=== PATIENT | male | born 1950 | race African-American/Black ===

== ENCOUNTER 2018-08-12 12:54 | Observation (INO) | payer OTHER ==
--- NOTE | 2018-08-12 14:11 | RAD REPORT ---
EXAM DESCRIPTION: Kenyatta Single View08/12/2018 1:59 pm CLINICAL HISTORY: Chest pain COMPARISON: 2017 FINDINGS: The lungs appear clear of acute infiltrate. The heart is mildly to moderately enlarged IMPRESSION: No acute abnormalities displayed
[2018-08-12 14:22] LABS: Absolute Lymphocytes (CBC) 2.3 K/uL (0.7-4.9); Absolute Monocytes 0.8 K/uL (0.1-1.3); Absolute Neutrophil 6.1 K/uL (1.8-8.0); Basophils % 0.8 % (0-1.3); Eosinophils % 2.5 % (0-4.4); Hematocrit 38.9 % (39.6-49.0); Lymphocytes % 24.5 % (15.3-44.8); MCH 28.5 pg (27.0-35.0); MCV 84.3 fL (80-100); MPV 9.9 fL (7.6-11.3); Monocytes % 8.4 % (3.3-12.3); RBC Red Blood Cell Count 4.62 M/uL (4.33-5.43)
[2018-08-12] MEDS ORDERED: ASPIRIN 81 MG CHEWABLE TABLET ONE (14:23)
[2018-08-12 14:32] LABS: Protime INR 1.05
[2018-08-12 14:43] LABS: Albumin 3.2 g/dL (3.4-5.0); Bilirubin Direct 0.1 mg/dL (0-0.2); Bilirubin Total 0.4 mg/dL (0.2-1.0); Magnesium 2.1 mg/dL (1.8-2.4); Protein, Total 7.3 g/dL (6.4-8.2); Troponin (Emerg Dept Use Only) 0.02 ng/mL (0.0-0.045)
--- NOTE | 2018-08-12 15:34 | EDPHYS ---
Physician Documentation [facility] Name: José Miguel Peraza Jr Age: 68 yrs Sex: Male : 1950 Arrival Date: 08/12/2018 Time: 12:57 Bed 23 Private MD: Geraldine Morales ED Physician Jarvis Forte HPI: 08/12 13:30 This 68 yrs old Black Male presents to ER via Wheelchair with complaints of Chest Pain. pm1 13:30 The patient or guardian reports chest pain that is located primarily in the anterior pm1 aspect of left upper chest. Onset: last night. The pain does not radiate. Associated signs and symptoms: Pertinent negatives: abdominal pain, nausea, shortness of breath, vomiting. The chest pain is described as a pressure. Duration: The patient or guardian reports multiple episodes, Last episode 30 minutes prior to arrival. Modifying factors: The symptoms are alleviated by Tums helped with initial episode last night. Chest pressure coming and going. No alleviating or aggravating factors since then. Severity of pain: in the emergency department the pain has resolved and did so just prior to arrival. The patient has experienced a previous episode, many years ago, [place] in 2013. The patient has not recently seen a physician, the patient's primary care provider is Dr. Morales and sees Sangita for chronic renal disease . Historical: - Allergies: 13:10 No Known Allergies; aa5 - Home Meds: 15:06 doxazosin 4 mg Oral tab 1 tab three times a day [Active]; simvastatin 40 mg Oral tab 1 tl3 tab once daily [Active]; ramipril 10 mg oral cap 1 cap once daily [Active]; Plavix 75 mg oral tab 1 tab once daily [Active]; metoprolol tartrate 100 mg oral tab 1 tab 2 times per day [Active]; Lasix 40 mg oral tab 1 tab once daily [Active]; hydralazine 100 mg Oral tab 1 tab 2 times per day [Active]; probenecid 500 mg Oral tab 0.5 tab once daily [Active]; - PMHx: 13:10 Diabetes - NIDDM; Gout; Hypertension; Myocardial infarction; aa5 - PSHx: 13:10 None; cataracts; aa5 - Immunization history:: Adult Immunizations unknown. - Social history:: Smoking status: Patient/guardian denies using tobacco. - Ebola Screening: : No symptoms or risks identified at this time. ROS: 13:30 Constitutional: Negative for fever, chills, and weight loss, Eyes: Negative for injury, pm1 pain, redness, and discharge, ENT: Negative for injury, pain, and discharge, Neck: Negative for injury, pain, and swelling. 13:30 Respiratory: Negative for shortness of breath, cough, wheezing, and pleuritic chest pain, Abdomen/GI: Negative for abdominal pain, nausea, vomiting, diarrhea, and constipation, Back: Negative for injury and pain, : Negative for injury, bleeding, discharge, and swelling, MS/Extremity: Negative for injury and deformity, Skin: Negative for injury, rash, and discoloration, Neuro: Negative for headache, weakness, numbness, tingling, and seizure. 13:30 Cardiovascular: Positive for chest pain, Negative for edema, orthopnea, palpitations. Exam: 13:30 Constitutional: This is a well developed, well nourished patient who is awake, alert, pm1 and in no acute distress. Head/Face: Normocephalic, atraumatic. Eyes: Pupils equal round and reactive to light, extra-ocular motions intact. Lids and lashes normal. Conjunctiva and sclera are non-icteric and not injected. Cornea within normal limits. Periorbital areas with no swelling, redness, or edema. ENT: Nares patent. No nasal discharge, no septal abnormalities noted. Tympanic membranes are normal and external auditory canals are clear. Oropharynx with no redness, swelling, or masses, exudates, or evidence of obstruction, uvula midline. Mucous membranes moist. Neck: Trachea midline, no thyromegaly or masses palpated, and no cervical lymphadenopathy. Supple, full range of motion without nuchal rigidity, or vertebral point tenderness. No Meningismus. Chest/axilla: Normal chest wall appearance and motion. Nontender with no deformity. No lesions are appreciated. Cardiovascular: Regular rate and rhythm with a normal S1 and S2. No gallops, murmurs, or rubs. Normal PMI, no JVD. No pulse deficits. Respiratory: Lungs have equal breath sounds bilaterally, clear to auscultation and percussion. No rales, rhonchi or wheezes noted. No increased work of breathing, no retractions or nasal flaring. Abdomen/GI: Soft, non-tender, with normal bowel sounds. No distension or tympany. No guarding or rebound. No evidence of tenderness throughout. Back: No spinal tenderness. No costovertebral tenderness. Full range of motion. Skin: Warm, dry with normal turgor. Normal color with no rashes, no lesions, and no evidence of cellulitis. MS/ Extremity: Pulses equal, no cyanosis. Neurovascular intact. Full, normal range of motion. 13:30 NSR, 69 BPM, nonspecific T wave changes. No ECG changes compared to ECG from 12/17/2016 13:30 Neuro: Orientation: is normal, Motor: is normal, moves all fours. Vital Signs: 13:10 BP 156 / 82; Pulse 74; Resp 18 S; Temp 98.6(TE); Pulse Ox 99% on R/A; Weight 87.09 kg aa5 (R); Height 5 ft. 2 in. (157.48 cm) (R); Pain 0/10; 13:54 BP 152 / 79; Pulse 56; Resp 18; Pulse Ox 98% ; tl3 15:06 BP 175 / 91; Pulse 49; Resp 18; Pulse Ox 100% on R/A; tl3 16:16 BP 178 / 86; Pulse 46; Resp 18; Pulse Ox 98% on R/A; tl3 13:10 Body Mass Index 35.12 (87.09 kg, 157.48 cm) aa5 MDM: 13:15 Patient medically screened. pm1 15:27 Data reviewed: vital signs. Data interpreted: Pulse oximetry: on room air is 100 %. pm1 Interpretation: normal. Counseling: I had a detailed discussion with the patient and/or guardian regarding: the historical points, exam findings, and any diagnostic results supporting the discharge/admit diagnosis, lab results, radiology results, the need for outpatient follow up, to return to the emergency department if symptoms worsen or persist or if there are any questions or concerns that arise at home. 08/12 13:19 Order name: Basic Metabolic Panel; Complete Time: 14:54 pm1 08/12 13:19 Order name: CBC with Diff; Complete Time: 14:32 pm1 08/12 13:19 Order name: LFT's; Complete Time: 14:54 pm1 08/12 13:19 Order name: Magnesium; Complete Time: 14:54 pm1 08/12 13:19 Order name: NT PRO-BNP; Complete Time: 14:54 pm1 08/12 13:19 Order name: PT-INR; Complete Time: 14:54 pm1 08/12 13:19 Order name: Troponin (emerg Dept Use Only); Complete Time: 14:54 pm1 08/12 16:06 Order name: Basic Metabolic Panel EDAR 08/12 16:06 Order name: Basic Metabolic Panel EDAR 08/12 16:06 Order name: CKMB Creatine Kinase MB EDAR 08/12 16:07 Order name: T4 Free EDAR 08/12 16:07 Order name: Thyroid Stimulating Hormone EDAR 08/12 16:07 Order name: Urinalysis EDAR 08/12 16:07 Order name: CBC with Automated Diff EDMS 08/12 13:19 Order name: XRAY Chest (1 view); Complete Time: 14:32 pm1 08/12 13:19 Order name: EKG; Complete Time: 13:20 pm1 08/12 16:07 Order name: CBC with Automated Diff EDAR 08/12 16:07 Order name: CKMB Creatine Kinase MB EDAR 08/12 16:07 Order name: CKMB Creatine Kinase MB EDAR 08/12 16:07 Order name: Creatine Phosphokinase EDAR 08/12 16:07 Order name: Creatine Phosphokinase EDAR 08/12 16:07 Order name: Creatine Phosphokinase EDAR 08/12 16:07 Order name: Lipid Profile EDAR 08/12 16:07 Order name: Lipid Profile EDAR 08/12 16:07 Order name: Magnesium EDAR 08/12 16:07 Order name: Magnesium EDAR 08/12 16:07 Order name: Troponin I EDAR 08/12 16:07 Order name: Troponin I EDAR 08/12 16:07 Order name: Troponin I EDAR 08/12 13:19 Order name: Cardiac monitoring; Complete Time: 13:23 pm1 08/12 13:19 Order name: EKG - Nurse/Tech; Complete Time: 13:23 pm1 08/12 13:19 Order name: IV Saline Lock; Complete Time: 14:13 pm1 08/12 13:19 Order name: Labs collected and sent; Complete Time: 14:13 pm1 08/12 13:19 Order name: O2 Per Protocol; Complete Time: 14:14 pm1 08/12 13:19 Order name: O2 Sat Monitoring; Complete Time: 14:14 pm1 08/12 16:07 Order name: CONS Physician Consult EDAR 08/12 16:07 Order name: CONS Physician Consult EDAR 08/12 16:07 Order name: Consistent Carb (ADA) 2000 Bruce EDAR Administered Medications: 14:13 Drug: Aspirin Chewable Tablet 324 mg Route: PO; tl3 15:13 Follow up: Response: No adverse reaction tl3 Disposition: 08/13 11:43 Co-signature as Attending Physician, Jarvis Forte MD. rosalinda Disposition: 08/12/18 15:33 Hospitalization ordered by Jaswant Milian for Observation. Preliminary diagnosis is Chest pain, unspecified. - Bed requested for Telemetry/MedSurg (observation). - Status is Observation. tl3 - Condition is Stable. - Problem is new. - Symptoms have improved. UTI on Admission? No Signatures: Dispatcher [employer] [facility] Mame Rosario RN RN Citlali Orosco RN RN aa5 Khai Moralez, TOOL DESIGNER APPRENTICE TOOL DESIGNER APPRENTICE pm1 Jarvis Forte MD MD Jerica Martinez RN RN tl3 Corrections: (The following items were deleted from the chart) 08/12 16:28 15:33 Hospitalization Ordered by Jaswant Milian DO for Observation. Preliminary dw diagnosis is Chest pain, unspecified. Bed requested for Telemetry/MedSurg (observation). Status is Observation. Condition is Stable. Problem is new. Symptoms have improved. UTI on Admission? No. pm1 17:53 16:28 08/12/2018 15:33 Hospitalization Ordered by Jaswant Milian DO for Observation. tl3 Preliminary diagnosis is Chest pain, unspecified. Bed requested for Telemetry/MedSurg (observation). Status is Observation. Condition is Stable. Problem is new. Symptoms have improved. UTI on Admission? No. dw
--- NOTE | 2018-08-12 15:34 | ER ---
Nurse's Notes [facility] Name: José Miguel Peraza Jr Age: 68 yrs Sex: Male : 1950 Arrival Date: 08/12/2018 Time: 12:57 Bed 23 Private MD: Geraldine Morales Diagnosis: Chest pain, unspecified Presentation: 08/12 13:08 Presenting complaint: Patient states: intermittent chest pain that began last night. Pt aa5 describes chest pain as aching. Pt denies SOB, denies nausea. Transition of care: patient was not received from another setting of care. Onset of symptoms was August 2018. Risk Assessment: Do you want to hurt yourself or someone else? Patient reports no desire to harm self or others. Initial Sepsis Screen: Does the patient meet any 2 criteria? No. Patient's initial sepsis screen is negative. Does the patient have a suspected source of infection? No. Patient's initial sepsis screen is negative. Care prior to arrival: None. 13:08 Method Of Arrival: Wheelchair aa5 13:08 Acuity: BRAD 3 aa5 Historical: - Allergies: 13:10 No Known Allergies; aa5 - Home Meds: 15:06 doxazosin 4 mg Oral tab 1 tab three times a day [Active]; simvastatin 40 mg Oral tab 1 tl3 tab once daily [Active]; ramipril 10 mg oral cap 1 cap once daily [Active]; Plavix 75 mg oral tab 1 tab once daily [Active]; metoprolol tartrate 100 mg oral tab 1 tab 2 times per day [Active]; Lasix 40 mg oral tab 1 tab once daily [Active]; hydralazine 100 mg Oral tab 1 tab 2 times per day [Active]; probenecid 500 mg Oral tab 0.5 tab once daily [Active]; - PMHx: 13:10 Diabetes - NIDDM; Gout; Hypertension; Myocardial infarction; aa5 - PSHx: 13:10 None; cataracts; aa5 - Immunization history:: Adult Immunizations unknown. - Social history:: Smoking status: Patient/guardian denies using tobacco. - Ebola Screening: : No symptoms or risks identified at this time. Screenin:54 Abuse screen: Denies threats or abuse. Nutritional screening: No deficits noted. tl3 Tuberculosis screening: No symptoms or risk factors identified. Fall Risk None identified. Assessment: 13:54 General: Appears in no apparent distress. comfortable, obese, well groomed, well tl3 developed, well nourished, Behavior is calm, cooperative, appropriate for age. Pain: Denies pain. Complains of pain in chest Pain does not radiate. Pain began suddenly, last night, relieved with rollaids. Neuro: Level of Consciousness is awake, alert, obeys commands, Oriented to person, place, time, situation, Appropriate for age. Cardiovascular: Heart tones S1 S2 present Patient's skin is warm and dry. Rhythm is regular. Respiratory: Airway is patent Respiratory effort is even, unlabored, Respiratory pattern is regular, symmetrical. GI: Abdomen is round. : No signs and/or symptoms were reported regarding the genitourinary system. EENT: Parent/caregiver reports the patient having difficulty hearing in right ear. 14:13 Reassessment:. tl3 15:06 Reassessment: Patient appears in no apparent distress at this time. No changes from tl3 previously documented assessment. Patient and/or family updated on plan of care and expected duration. Pain level reassessed. Patient is alert, oriented x 3, equal unlabored respirations, skin warm/dry/pink. whitney at bedside discussing POC. 16:16 Reassessment: Patient appears in no apparent distress at this time. No changes from tl3 previously documented assessment. Patient and/or family updated on plan of care and expected duration. Pain level reassessed. Patient is alert, oriented x 3, equal unlabored respirations, skin warm/dry/pink. hospitalist at bedside. Vital Signs: 13:10 BP 156 / 82; Pulse 74; Resp 18 S; Temp 98.6(TE); Pulse Ox 99% on R/A; Weight 87.09 kg aa5 (R); Height 5 ft. 2 in. (157.48 cm) (R); Pain 0/10; 13:54 BP 152 / 79; Pulse 56; Resp 18; Pulse Ox 98% ; tl3 15:06 BP 175 / 91; Pulse 49; Resp 18; Pulse Ox 100% on R/A; tl3 16:16 BP 178 / 86; Pulse 46; Resp 18; Pulse Ox 98% on R/A; tl3 13:10 Body Mass Index 35.12 (87.09 kg, 157.48 cm) aa ED Course: 12:57 Patient arrived in ED. mr 12:57 Geraldine Morales MD is Private Physician. mr 13:09 Triage completed. aa5 13:09 Arm band placed on. aa5 13:14 Whitney Moralez NP is PHCP. pm1 13:14 Jarvis Forte MD is Attending Physician. pm1 13:22 EKG done, by ED staff, reviewed by Jarvis Forte MD. cb2 13:54 Jerica Martinez RN is Primary Nurse. tl3 13:54 Patient has correct armband on for positive identification. school lunch monitor on. Pulse tl3 ox on. NIBP on. Warm blanket given. 13:54 No provider procedures requiring assistance completed. Inserted saline lock: 20 gauge tl3 in right antecubital area, using aseptic technique. Blood collected. Patient maintains SpO2 saturation greater than 95% on room air. 13:55 X-ray completed. Portable x-ray completed in exam room. Patient tolerated procedure ka well. 14:07 XRAY Chest (1 view) In Process Unspecified. EDMS 15:33 Jaswant Milian DO is Hospitalizing Provider. pm1 17:16 Patient admitted, IV remains in place. tl3 Administered Medications: 14:13 Drug: Aspirin Chewable Tablet 324 mg Route: PO; tl3 15:13 Follow up: Response: No adverse reaction tl3 Outcome: 15:33 Decision to Hospitalize by Provider. pm1 17:16 Admitted to Tele accompanied by tech, via wheelchair, with chart, Report called to tl3 BEENA Alex 17:16 Condition: stable 17:16 Instructed on the need for admit. 17:53 Patient left the ED. tl3 Signatures: Dispatcher [employer] ROSEMARYAL Awa Gordon mr OroscoCitlali, RN RN aa5 Taryn Fritz Patrick, NP MASTER BRE[employer]ER pm1 [employer] cb2 Jerica Martinez, BEENA RN tl3
[2018-08-12] MEDS ORDERED: TRAMADOL HCL 50 MG TAB PO PRN (15:58)
[2018-08-12] MEDS ORDERED: D50W 25 GM/50 ML SYRINGE IV PRN (15:58)
[2018-08-12] MEDS ORDERED: GLUCAGON 1 MG/VIAL IM PRN (15:58)
[2018-08-12] MEDS ORDERED: NITROGLYCERIN 0.4 MG/TAB SL PRN (15:58)
[2018-08-12] MEDS ORDERED: ONDANSETRON 4 MG/2 ML VIAL IV PRN (15:58)
[2018-08-12] MEDS ORDERED: ACETAMINOPHEN 500 MG TAB PO PRN (15:58)
--- NOTE | 2018-08-12 16:13 | P.HP ---
Certification for Inpatient Patient admitted to: Observation With expected LOS: <2 Midnights Patient will require the following post-hospital care: None Practitioner: I am a practitioner with admitting privileges, knowledge of patient current condition, hospital course, and medical plan of care. Services: Services provided to patient in accordance with Admission requirements found in Title 42 Section 412.3 of the Code of Federal Regulations Patient History Date of Service: 08/12/18 Primary Care Provider: Dr. Prado; Nephrology-Dr. Quesada Reason for admission: Chest pain History of Present Illness: 68-year-old male presented to the emergency room with chest pain. Chest pain started about 10 and p.m. last night. Mainly to the substernal region. No radiation pain was noted. No nausea, vomiting, shortness of breath was noted. He got up took some Rolaids. Pain improved. Then this morning he reported more chest pain. At which point he came to the emergency room. He denied any palpitations, cough, congestion, or shortness of breath. Patient with history of diabetes mellitus type 2, insulin-dependent, chronic renal disease stage IV, Coronary artery disease with prior [place], diastolic CHF, hyperlipidemia, and difficulty hearing. In the ER patient evaluated. Initial EKG shows no significant EKG changes. Blood pressure elevated. Initial troponin unremarkable. BNP 842. Sodium 142, potassium 4.0, BUN of 26, creatinine 2.9 with a GFR 27. Magnesium 2.1. Glucose 107. White count 9.6, hemoglobin 13.1. Chest x-ray showed no significant lung changes. Cardiomegaly noted. Patient admitted due to multiple risk factors. Patient admitted for observation. When I saw the patient the ER, family bedside. He reported no chest pain. Patient appeared stable Allergies No Known Drug Allergies Allergy (Verified 12/16/16 16:06) Unknown No Known Allergies Allergy (Uncoded 03/19/17 06:13) Unknown Home medications list reviewed: Yes Home Medications: Hydralazine [Apresoline*] 50 mg PO TID #90 tab 01/30/14 Simvastatin [Zocor*] 40 mg PO BEDTIME #30 tablet 01/30/14 Clopidogrel Bisulfate [Plavix*] 75 mg PO DAILY #30 tablet 12/17/16 Doxazosin [Cardura*] 2 mg PO BID 12/17/16 Furosemide 20 mg PO DAILY 12/17/16 Insulin Detemir [Levemir Flextouch] 10 unit SQ DAILY 12/17/16 Metoprolol Tartrate [Lopressor*] 100 mg PO BID #60 tab 12/17/16 Ramipril 5 mg PO BEDTIME 12/17/16 Ranitidine HCl [Zantac] 300 mg PO DAILY 12/17/16 - Past Medical/Surgical History Diabetic: Yes -: Diabetes mellitus type 2, insulin-dependent -: HTN -: Chronic diastolic CHF -: Chronic renal disease, stage IV -: Hyperlipidemia -: CAD with prior [place] -: Gout -: Difficulty hearing -: Cataract Sx-bilateral eyes Psychosocial/ Personal History: Patient is - Family History Family History: Reviewed- Non-Contributory - Social History Smoking Status: Never smoker Alcohol use: No CD- Drugs: No Caffeine use: Yes Place of Residence: Home Review of Systems General: As per HPI Eyes: Unremarkable ENT: As per HPI Respiratory: Unremarkable Cardiovascular: Chest Pain, As per HPI Gastrointestinal: Unremarkable Genitourinary: Unremarkable Musculoskeletal: Unremarkable Integumentary: Unremarkable Neurological: Unremarkable Lymphatics: Unremarkable Physical Examination - Physical Exam General: Alert, In no apparent distress, Oriented x3, Cooperative HEENT: Atraumatic, Normocephalic, Mucous membr. moist/pink, Other (Patient with difficulty hearing) Neck: Supple, No Thyromegaly Respiratory: Clear to auscultation bilaterally, Normal air movement Cardiovascular: Normal pulses, Regular rate/rhythm Gastrointestinal: Normal bowel sounds, Soft and benign, Non-distended, No ascites, No tenderness, No masses, No rebound, No guarding Musculoskeletal: No contractures, No erythema, No tenderness, No warmth Integumentary: No tenderness/swelling, No erythema, No warmth, No cyanosis Neurological: Normal speech, Normal strength at 5/5 x4 extr, Normal tone, Normal affect - Studies Laboratory Data (last 24 hrs) 08/12/18 14:00: PT 12.4, INR 1.05 08/12/18 14:00: WBC 9.6, Hgb 13.1 L, Hct 38.9 L, Plt Count 209 08/12/18 14:00: Sodium 142, Potassium 4.0, BUN 26 H, Creatinine 2.90 H, Glucose 107 H, Magnesium 2.1, Total Bilirubin 0.4, AST 14 L, ALT 19, Alkaline Phosphatase 51 Assessment and Plan - Plan Impression: Chest pain likely unstable angina with history of CAD and prior [place] Hypertension, uncontrolled Diabetes mellitus type 2 insulin-dependent Chronic diastolic CHF Chronic renal disease stage IV Hyperlipidemia Difficulty hearing Gout Plan: Chest pain likely unstable angina with history of CAD and prior FL: Patient will be admitted for further evaluation. Chest pain protocol in place. Will continue monitor on telemetry. Will monitor serial cardiac enzymes. Will start aspirin. Will continue with his Plavix. Will continue with his blood pressure medication and basal insulin. Cardiology consulted for further recommendation. Patient may require further cardiac intervention. Inpatient versus outpatient cardiac workup will need to be considered. Hypertension, uncontrolled: Will continue with his medications of doxazosin 4 mg 1 pill 3 times a day, hydralazine 100 mg 1 pill twice daily, metoprolol 100 mg 1 pill twice daily, and ramipril 10 mg daily. Diabetes mellitus type 2 insulin-dependent: Will continue with basal insulin Lantus 10 units at bedtime. Will continue to monitor Accu-Cheks. Sliding scale in place. Chronic diastolic CHF: This appears stable. Will continue with Lasix [address] on 1500 cc per day fluid restriction. Chronic renal disease stage IV: This appears stable. Will continue with medication above. Nephrology consulted to further address Hyperlipidemia: Will continue with statin medication. Difficulty hearing: Patient should see ENT as an outpatient to further evaluate and treat Gout: Overall stable. Will monitor closely. Discharge Plan: Home Plan to discharge in: 24 Hours - Advance Directives Does patient have a Living Will: No Does patient have a Durable POA for Healthcare: No - Code Status/Comfort Care Code Status Assessed: Yes (Patient full code.) Time Spent Managing Pts Care (In Minutes): 55
[2018-08-12] MEDS: INSULIN -REGULAR HUMAN 50 UNIT/0.5 ML ML SQ SCH ×2 (16:30→20:01)
[2018-08-12 17:54] VITALS: BMI 35.9
[2018-08-12] MEDS ORDERED: ENOXAPARIN 30 MG/0.3 ML SQ SCH (18:00)
[2018-08-12] MEDS ORDERED: INFLUENZA VACCINE (for 3y+) 0.5 ML DOSE IMVAC ONE (18:00)
[2018-08-12] MEDS: HYDRALAZINE HCL 25 MG TABLET PO SCH (18:24)
[2018-08-12] MEDS ORDERED: PNEUMOCOCCAL VACCINE 0.5 ML IMVAC ONE (19:00)
[2018-08-12] MEDS: DOXAZOSIN 4 MG TAB PO SCH (20:00)
[2018-08-12] MEDS: METOPROLOL TAR 50 MG TAB PO SCH (20:01)
[2018-08-12] MEDS ORDERED: INSULIN GLARGINE 100 UNITS/ML SQ SCH (21:00)
[2018-08-12] MEDS ORDERED: ATORVASTATIN 20 MG TAB PO SCH (21:00)
[2018-08-12 22:30] LABS: CKMB Creatine Kinase MB 1.2 ng/mL (0.3-3.6); Troponin I 0.02 ng/mL (0.0-0.045)
[2018-08-12 22:35] LABS: Thyroid Stimulating Hormone 1.17 uIU/mL (0.360-3.740)
[2018-08-13 05:21] LABS: Absolute Lymphocytes (CBC) 3.3 K/uL (0.7-4.9); Absolute Monocytes 0.9 K/uL (0.1-1.3); Absolute Neutrophil 6.2 K/uL (1.8-8.0); Basophils % 0.6 % (0-1.3); Eosinophils % 2.7 % (0-4.4); Hematocrit 36.5 % (39.6-49.0); Lymphocytes % 30.9 % (15.3-44.8); MCH 28.7 pg (27.0-35.0); MCV 86.3 fL (80-100); Monocytes % 8.2 % (3.3-12.3); RBC Red Blood Cell Count 4.23 M/uL (4.33-5.43)
[2018-08-13 05:46] LABS: CKMB Creatine Kinase MB 1.2 ng/mL (0.3-3.6); Troponin I 0.02 ng/mL (0.0-0.045)
[2018-08-13 05:51] LABS: Potassium 4.2 mmol/L (3.5-5.1)
[2018-08-13] MEDS ORDERED: PANTOPRAZOLE 40MG TABLET PO SCH (06:30)
[2018-08-13] MEDS: INSULIN -REGULAR HUMAN 50 UNIT/0.5 ML ML SQ SCH ×2 (07:30→11:30)
[2018-08-13] MEDS ORDERED: DOXAZOSIN 2 MG TAB ONE ×2 (08:27→14:14)
[2018-08-13] MEDS: METOPROLOL TAR 50 MG TAB PO SCH (08:27)
[2018-08-13] MEDS: HYDRALAZINE HCL 25 MG TABLET PO SCH (08:28)
[2018-08-13] MEDS ORDERED: CLOPIDOGREL 75 MG TABLET PO SCH (09:00)
[2018-08-13] MEDS ORDERED: RAMIPRIL 5 MG CAP PO SCH (09:00)
[2018-08-13] MEDS ORDERED: ASPIRIN EC 81 MG TAB PO SCH (09:00)
[2018-08-13] MEDS ORDERED: FUROSEMIDE 40 MG TABLET PO SCH (09:00)
[2018-08-13] MEDS: DOXAZOSIN 4 MG TAB PO SCH ×2 (09:00→14:00)
[2018-08-13 10:08] VITALS: O2SAT 98
--- NOTE | 2018-08-13 11:37 | P.PN ---
Subjective Date of Service: 08/13/18 (Hospitalist) Primary Care Provider: Dr. Prado; Nephrology-Dr. Quesada Chief Complaint: Chest pain Subjective: Improving (Patient is improving still having occasional discomfort admitted with chest pain at risk for coronary artery disease patient does not smoke denies any shortness of breath) Patient is doing well still has somechest discomfort. Denies any shortness of breath cough fever or chills Review of Systems Unremarkable Physical Examination - Vital Signs Temperature: 98.5 F Blood Pressure: 210/96 Pulse: 55 Respirations: 16 Pulse Ox (%): 98 - Physical Exam General: Alert, Oriented x3 Neck: Supple Respiratory: Clear to auscultation bilaterally Cardiovascular: No edema, Regular rate/rhythm, Normal S1 S2 Gastrointestinal: Normal bowel sounds, Soft and benign - Studies Laboratory Data (last 24 hrs) 08/12/18 14:00: PT 12.4, INR 1.05 08/12/18 14:00: WBC 9.6, Hgb 13.1 L, Hct 38.9 L, Plt Count 209 08/12/18 14:00: Sodium 142, Potassium 4.0, BUN 26 H, Creatinine 2.90 H, Glucose 107 H, Magnesium 2.1, Total Bilirubin 0.4, AST 14 L, ALT 19, Alkaline Phosphatase 51 Assessment & Plan - Problems (Diagnosis) (1) Chest pain, rule out acute myocardial infarction Current Visit: Yes Status: Acute Plan: Patient admitted with chest pain high risk for coronary artery disease troponins negative patient has chronic renal insufficiency 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
[2018-08-13 12:35] VITALS: BP 142/69; TEMP 98.4
--- NOTE | 2018-08-13 16:12 | P.DS ---
Admission Date: 08/12/18 Discharge Date: 08/13/18 Primary Care Provider: Dr. Prado; Nephrology-Dr. Quesada Disposition: AMA-LEFT AGAINST MEDICAL ADVIC Discharge Condition: FAIR Reason for Admission: Chest pain - Problems (1) Chest pain, rule out acute myocardial infarction Status: Acute Brief History of Present Illness: Patient is 68 years of age with renal failure diabetes hypertension admitted with chest pain seen by Cardiology Hospital Course: He left against medical advise although he was seen by Dr. Mcconnell. According to the nurse he was okay as far as he was concerned for patient to go home although there was no note in the chart. He is to follow up with his primary care physician Vital Signs/Physical Exam: Temp Pulse Resp BP Pulse Ox 98.4 F 64 16 142/69 H 98 08/13/18 12:00 08/13/18 14:08 08/13/18 12:00 08/13/18 14:08 08/13/18 12:00 Laboratory Data at Discharge: WBC 10.7 K/uL (4.3-10.9) 08/13/18 04:20 Hgb 12.2 g/dL (13.6-17.9) L 08/13/18 04:20 Hct 36.5 % (39.6-49.0) L 08/13/18 04:20 Plt Count 175 K/uL (152-406) 08/13/18 04:20 PT 12.4 SECONDS (9.5-12.5) 08/12/18 14:00 INR 1.05 08/12/18 14:00 Sodium 144 mmol/L (136-145) 08/13/18 04:20 Potassium 4.2 mmol/L (3.5-5.1) 08/13/18 04:20 BUN 28 mg/dL (7-18) H 08/13/18 04:20 Creatinine 3.00 mg/dL (0.55-1.3) H 08/13/18 04:20 Glucose 88 mg/dL (74-106) 08/13/18 04:20 Magnesium 2.0 mg/dL (1.8-2.4) 08/13/18 04:20 Total Bilirubin 0.4 mg/dL (0.2-1.0) 08/12/18 14:00 AST 14 U/L (15-37) L 08/12/18 14:00 ALT 19 U/L (12-78) 08/12/18 14:00 Alkaline Phosphatase 51 U/L (45-117) 08/12/18 14:00 Troponin I 0.02 ng/mL (0.0-0.045) 08/13/18 04:20 Triglycerides 83 mg/dL (<150) 08/13/18 04:20 Cholesterol 114 mg/dL (<200) 08/13/18 04:20 HDL Cholesterol 31 mg/dL (40-60) L 08/13/18 04:20 Cholesterol/HDL Ratio 3.68 08/13/18 04:20 Home Medications: Simvastatin [Zocor*] 40 mg PO BEDTIME #30 tablet 01/30/14 Clopidogrel Bisulfate [Plavix*] 75 mg PO DAILY #30 tablet 12/17/16 Doxazosin [Cardura*] 2 mg PO TID 12/17/16 Furosemide 40 mg PO DAILY 12/17/16 Insulin Detemir [Levemir Flextouch] 20 unit SQ DAILY 12/17/16 Ramipril 5 mg PO BEDTIME 12/17/16 Colchicine/Probenecid [Probenecid-Colchicine Tabs] 1 tab PO DAILYPRN PRN Hydralazine [Apresoline*] 50 mg PO BID 08/12/18 Metoprolol Tartrate [Lopressor*] 100 mg PO BIDWM 08/12/18 Followup: Denny Quesada DO [ACTIVE - CAN ADMIT] - Daniele Mcconnell MD [ACTIVE - CAN ADMIT] -
--- NOTE | 2018-08-13 20:30 | CON ---
Date of Consultation: 08/12/[address] Milian on 08/12/2018. The patient was seen on 08/12/2018. Reason For Consultation: Chest pain. History Of Present Illness: Mr. Peraza is a 68-year-old male, who has chronic renal disease, diabete s, hypertension, coronary artery disease, and gout came in with chest pain that is described as a pre ssure with some shortness of breath, but no diaphoresis. The chest pain was not exertional. It did not radiate. Denied PND, orthopnea, pedal edema, palpitation, or syncope. Allergies: NONE. Review of Systems: Negative. Social History: Negative. Family History: Negative. Medications: Include hydralazine, Zocor, insulin, ramipril, metoprolol, Plavix, Cardura, colchicine, and Lasix. Physical Examination: Vital signs: Stable. Afebrile. Sinus rhythm. HEENT: Negative. Neck: Supple with no bruit. Chest: Clear. Cardiac: Revealed a regular rhythm and rate with S4 gallops. Abdomen: Benign. Extremities: Revealed no clubbing, cyanosis, or edema. Laboratory Data: His creatinine is 2.9. BNP is 842. Echocardiogram in December 2016 was negative. Ch est x-ray was negative. Lexiscan in 2013 was positive. No catheterization done. Impression And Plan: 1.Chest pain possibly consistent with coronary artery disease. The patient needs to continue his ho me medication, maybe increase his metoprolol on an as-needed basis. Continue the Plavix. He really should have a heart catheterization sometime in the future, but this cannot be done with his kidney f unction. 2.Renal insufficiency, stage IV. Renal consultation is pending. Again, this is a major issue as fa r as his heart is concerned and unless he goes on dialysis or his kidney function improves, we cannot catheterization him. 3.Diabetes. 4.Dyslipidemia. 5.Hypertension. 6.Gout. These above problems are stable. Again, I would increase his metoprolol. Consider nitroglycerin to deal with his renal issue and we will be happy to see him as an outpatient, but he can go home from m y standpoint. PUJA/YVROSE Voice ID: [id number] Report ID: [id number]
--- NOTE | 2018-08-14 07:07 | EKG ---
Test Date: 2018-08-12 Test Time: 13:18:34 Razor Grinder: LUNA MEASUREMENT RESULTS: Intervals: Rate: 69 KS: 146 QRSD: 98 QT: 422 QTc: 452 Chadwick: P: 50 KS: 146 QRS: -20 T: 4 INTERPRETIVE STATEMENTS: Normal sinus rhythm Nonspecific T wave abnormality Abnormal ECG Compared to ECG 12/17/2016 05:49:18 Sinus arrhythmia no longer present Possible ischemia no longer present Prolonged QT interval no longer present T-wave abnormality still present Electronically Signed On 08-14-18 07:04:00 [employer] by Daniele Rosen
== END 2018-08-13 15:39 | disposition left against medical advice (07) ==
LOC: ER 12:54 → ERHOLD 16:14 → 4TH 17:18
PROVIDERS: ADMIT Family Medicine; ATTEND Family Medicine
DX: R07.9 Chest pain, unspecified (principal); I13.0 Hypertensive heart and chronic kidney disease with heart failure and stage 1 through stage 4 chronic kidney disease, or unspecified chronic kidney disease; E11.22 Type 2 diabetes mellitus with diabetic chronic kidney disease; N18.4 Chronic kidney disease, stage 4 (severe); I50.32 Chronic diastolic (congestive) heart failure; I25.10 Atherosclerotic heart disease of native coronary artery without angina pectoris; M10.9 Gout, unspecified
CPT/HCPCS: 36415; 71045; 80048 ×2; 80061; 80076; 82550 ×2; 82553 ×2; 82962 ×3; 83735 ×2; 83880; 84439; 84443; 84484 ×3; 85025 ×2; 85610; 93005; 99285; G0378 ×2; J1650

== ENCOUNTER 2019-06-03 06:33 | Emergency (ER) | payer OTHER ==
[2019-06-03] MEDS ORDERED: HYDROCODONE/APAP 7.5/325 MG TAB ONE (06:54)
--- NOTE | 2019-06-03 08:04 | EDPHYS ---
Physician Documentation [facility] Name: José Miguel Peraza Jr Age: 69 yrs Sex: Male : 1950 Arrival Date: 06/03/2019 Time: 06:37 Bed 8 Private MD: ED Physician Brant Lemus HPI: 06/03 07:03 This 69 yrs old Black Male presents to ER via EMS with complaints of Leg Pain. kb 07:03 The patient presents with decreased range of motion, pain, that is acute. The kb complaints affect the posterior aspect of right knee. Context: The problem was sustained at home, resulted from twisting of the extremity, an unknown cause, the patient is not able to bear weight, the patient is not able to ambulate. Onset: The symptoms/episode began/occurred 2 day(s) ago. Modifying factors: The symptoms are alleviated by nothing. the symptoms are aggravated by movement, weight bearing, bending knee. Associated signs and symptoms: The patient has no apparent associated signs or symptoms. Treatment prior to arrival includes: no previous treatment. Severity of symptoms: At their worst the symptoms were moderate, in the emergency department the symptoms are unchanged. The patient has not experienced similar symptoms in the past. The patient has not recently seen a physician. Pt reports he has a history of gout, ran out of medication a few days ago then started having pain behind right knee 2 days ago. Able to fully extend leg, but hurts knee to bend. No redness, swelling noted. . Historical: - Allergies: 06:43 No Known Allergies; ea - Home Meds: 06:43 hydralazine 100 mg Oral tab 1 tab 2 times per day [Active]; simvastatin 40 mg Oral tab ea 1 tab once daily [Active]; doxazosin 4 mg Oral tab 1 tab three times a day [Active]; Plavix 75 mg Oral tab 1 tab once daily [Active]; Lasix 40 mg Oral tab 1 tab once daily [Active]; ramipril 10 mg Oral cap 1 cap once daily [Active]; probenecid 500 mg Oral tab 0.5 tab once daily [Active]; metoprolol tartrate 100 mg Oral tab 1 tab 2 times per day [Active]; - PMHx: 06:43 Diabetes - NIDDM; Gout; Hypertension; Myocardial infarction; ea - Immunization history:: Adult Immunizations up to date. - Social history:: Smoking status: Patient/guardian denies using tobacco. - Ebola Screening: : No symptoms or risks identified at this time. ROS: 06:59 Constitutional: Negative for fever, chills, and weight loss, Neck: Negative for injury, kb pain, and swelling, Cardiovascular: Negative for chest pain, palpitations, and edema, Respiratory: Negative for shortness of breath, cough, wheezing, and pleuritic chest pain, Abdomen/GI: Negative for abdominal pain, nausea, vomiting, diarrhea, and constipation, Skin: Negative for injury, rash, and discoloration, Neuro: Negative for headache, weakness, numbness, tingling, and seizure. 06:59 MS/extremity: Positive for pain, of the posterior aspect of right knee. Exam: 06:59 Constitutional: This is a well developed, well nourished patient who is awake, alert, kb and in no acute distress. Head/Face: Normocephalic, atraumatic. Chest/axilla: Normal chest wall appearance and motion. Nontender with no deformity. No lesions are appreciated. Cardiovascular: Regular rate and rhythm with a normal S1 and S2. No gallops, murmurs, or rubs. Normal PMI, no JVD. No pulse deficits. Respiratory: Lungs have equal breath sounds bilaterally, clear to auscultation and percussion. No rales, rhonchi or wheezes noted. No increased work of breathing, no retractions or nasal flaring. Abdomen/GI: Soft, non-tender, with normal bowel sounds. No distension or tympany. No guarding or rebound. No evidence of tenderness throughout. Skin: Warm, dry with normal turgor. Normal color with no rashes, no lesions, and no evidence of cellulitis. Neuro: Awake and alert, GCS 15, oriented to person, place, time, and situation. Cranial nerves II-XII grossly intact. Motor strength 5/5 in all extremities. Sensory grossly intact. Cerebellar exam normal. Normal gait. 06:59 Musculoskeletal/extremity: Extremities: grossly normal except: noted in the posterior aspect of right knee: pain, ROM: limited active range of motion, in the right leg, Circulation is intact in all extremities. Sensation intact. Weight bearing: is unable to bear weight. Vital Signs: 06:41 BP 157 / 105; Pulse 67; Resp 18; Temp 97.6; Pulse Ox 100% ; Weight 87.09 kg; Height 5 ea ft. 1 in. (154.94 cm); 07:02 BP 174 / 71; Pulse 68; Resp 18; Pulse Ox 100% on R/A; hj 08:10 BP 172 / 68; Pulse 66; Resp 18; Pulse Ox 100% on R/A; hj 06:41 Body Mass Index 36.28 (87.09 kg, 154.94 cm) ea MDM: 06:43 Patient medically screened. kb 07:02 Data reviewed: vital signs, nurses notes. Data interpreted: Pulse oximetry: on room air kb is 100 %. Interpretation: normal. 08:03 Counseling: I had a detailed discussion with the patient and/or guardian regarding: the kb historical points, exam findings, and any diagnostic results supporting the discharge/admit diagnosis, radiology results, the need for outpatient follow up, a family practitioner, to return to the emergency department if symptoms worsen or persist or if there are any questions or concerns that arise at home. 06/03 06:54 Order name: US Extremity Venous Unilateral Ltd kb Administered Medications: 06:55 Drug: [place] (7.5 mg-325 mg) 1 tabs {Note: RASS 1.} Route: PO; ea 07:01 Follow up: Response: No adverse reaction; Pain is decreased hj 08:04 Drug: colchicine 0.6 mg Route: PO; hj 08:09 Follow up: Response: No adverse reaction; Pain is decreased hj Disposition: 06/03/19 08:03 Discharged to Home. Impression: Pain in right knee. - Condition is Stable. - Discharge Instructions: Gout, Njic-if-Nopw, Knee Pain, [id number]. - Prescriptions for indomethacin 25 mg Oral capsule - take 1 capsule by ORAL route 3 times per day As needed with food; 30 capsule. - Medication Reconciliation Form, Thank You Letter, Antibiotic Education, Prescription Opioid Use form. - Follow up: Emergency Department; When: As needed; Reason: Worsening of condition. Follow up: Private Physician; When: 2 - 3 days; Reason: Recheck today's complaints, Continuance of care, Re-evaluation by your physician. Addendum: 06/06/2019 10:57 Co-signature as Attending Physician, Brant Lemus MD. r n Signatures: Dispatcher [employer] EDKeerthi Corral FNP-C [employer]W CHIEF-Ckb Brant Lemus MD MD rn Joaquin, Henry, RN RN hj Antunez, Elena, RN RN ea Corrections: (The following items were deleted from the chart) 06/03 08:19 08:03 06/03/2019 08:03 Discharged to Home. Impression: Pain in right knee. Condition is hj Stable. Forms are Medication Reconciliation Form, Thank You Letter, Antibiotic Education, Prescription Opioid Use. Follow up: Emergency Department; When: As needed; Reason: Worsening of condition. Follow up: Private Physician; When: 2 - 3 days; Reason: Recheck today's complaints, Continuance of care, Re-evaluation by your physician. kb
--- NOTE | 2019-06-03 08:04 | ER ---
Nurse's Notes [facility] Name: José Miguel Peraza Jr Age: 69 yrs Sex: Male : 1950 Arrival Date: 06/03/2019 Time: 06:37 Bed 8 Private MD: Diagnosis: Pain in right knee Presentation: 06/03 06:38 Presenting complaint: EMS states: Pt reports right leg pain for the last two days. Pt ea states " I ran out of gout medication and I think that's what caused it". Transition of care: patient was not received from another setting of care. Onset of symptoms was June 03, 2019. Risk Assessment: Do you want to hurt yourself or someone else? Patient reports no desire to harm self or others. Initial Sepsis Screen: Does the patient meet any 2 criteria? No. Patient's initial sepsis screen is negative. Does the patient have a suspected source of infection? No. Patient's initial sepsis screen is negative. Care prior to arrival: None. 06:38 Method Of Arrival: EMS: [facility] ea 06:38 Acuity: BRAD 4 ea Triage Assessment: 06:44 General: Appears in no apparent distress. Behavior is calm, cooperative, appropriate ea for age. Pain: Complains of pain in right leg. Neuro: Level of Consciousness is awake, alert, obeys commands, Oriented to person, place, time, situation. Cardiovascular: Patient's skin is warm and dry. Respiratory: Airway is patent Respiratory effort is even, unlabored, Respiratory pattern is regular, symmetrical. Derm: Skin is pink, warm \\T\\ dry. Musculoskeletal: Reports pain in right leg. Historical: - Allergies: 06:43 No Known Allergies; ea - Home Meds: 06:43 hydralazine 100 mg Oral tab 1 tab 2 times per day [Active]; simvastatin 40 mg Oral tab ea 1 tab once daily [Active]; doxazosin 4 mg Oral tab 1 tab three times a day [Active]; Plavix 75 mg Oral tab 1 tab once daily [Active]; Lasix 40 mg Oral tab 1 tab once daily [Active]; ramipril 10 mg Oral cap 1 cap once daily [Active]; probenecid 500 mg Oral tab 0.5 tab once daily [Active]; metoprolol tartrate 100 mg Oral tab 1 tab 2 times per day [Active]; - PMHx: 06:43 Diabetes - NIDDM; Gout; Hypertension; Myocardial infarction; ea - Immunization history:: Adult Immunizations up to date. - Social history:: Smoking status: Patient/guardian denies using tobacco. - Ebola Screening: : No symptoms or risks identified at this time. Screenin:44 Abuse screen: Denies threats or abuse. Nutritional screening: No deficits noted. ea Tuberculosis screening: No symptoms or risk factors identified. Fall Risk None identified. Assessment: 07:01 General: Appears in no apparent distress. uncomfortable, Behavior is calm, cooperative, hj appropriate for age. Pain: Complains of pain in right leg. Neuro: Level of Consciousness is awake, alert, obeys commands, Oriented to person, place, time, situation, Appropriate for age. Cardiovascular: Capillary refill < 3 seconds Patient's skin is warm and dry. Respiratory: Airway is patent Respiratory effort is even, unlabored, Respiratory pattern is regular, symmetrical. GI: No signs and/or symptoms were reported involving the gastrointestinal system. : No signs and/or symptoms were reported regarding the genitourinary system. EENT: No signs and/or symptoms were reported regarding the EENT system. EENT: hard of hearing. Derm: No signs and/or symptoms reported regarding the dermatologic system. Musculoskeletal: Reports pain in posterior aspect of right knee and right leg. 08:10 Reassessment: for D/C;. hj Vital Signs: 06:41 BP 157 / 105; Pulse 67; Resp 18; Temp 97.6; Pulse Ox 100% ; Weight 87.09 kg; Height 5 ea ft. 1 in. (154.94 cm); 07:02 BP 174 / 71; Pulse 68; Resp 18; Pulse Ox 100% on R/A; hj 08:10 BP 172 / 68; Pulse 66; Resp 18; Pulse Ox 100% on R/A; hj 06:41 Body Mass Index 36.28 (87.09 kg, 154.94 cm) ea ED Course: 06:37 Patient arrived in ED. ea 06:41 Triage completed. ea 06:42 Keerthi Alarcon FNP-C is [facility]. kb 06:42 Brant Lemus MD is Attending Physician. kb 06:44 Patient has correct armband on for positive identification. Bed in low position. Call ea light in reach. 06:44 Arm band placed on right wrist. Patient placed in an exam room, on a stretcher, on ea pulse oximetry. 07:01 Vince Rich, RN is Primary Nurse. hj 07:59 Ultrasound completed. Patient tolerated well. sg3 08:01 US Extremity Venous Unilateral Ltd In Process Unspecified. EDMS 08:19 No provider procedures requiring assistance completed. Patient did not have IV access hj during this emergency room visit. Administered Medications: 06:55 Drug: [place] (7.5 mg-325 mg) 1 tabs {Note: RASS 1.} Route: PO; ea 07:01 Follow up: Response: No adverse reaction; Pain is decreased hj 08:04 Drug: colchicine 0.6 mg Route: PO; hj 08:09 Follow up: Response: No adverse reaction; Pain is decreased hj Outcome: 08:03 Discharge ordered by . kb 08:19 Discharged to home via wheelchair, with family. hj 08:19 Condition: stable 08:19 Discharge instructions given to patient, family, Instructed on discharge instructions, follow up and referral plans. medication usage, Demonstrated understanding of instructions, follow-up care, medications, Prescriptions given X 1. 08:19 Patient left the ED. hj Signatures: Dispatcher [employer] EDMN Keerthi Alarcon, RAIMANN MACHINE OPERATOR-C RAIMANN MACHINE OPERATOR-CkVince Henriquez, RN Ana Maria Morejon RN RN ea Godinez, Sarah sg3
[2019-06-03] MEDS ORDERED: COLCHICINE 0.6 MG TAB ONE (08:06)
[2019-06-03 08:25] VITALS: TEMP 97.6; O2SAT 100
[2019-06-03 08:27] VITALS: BP 172/68
--- NOTE | 2019-06-03 08:58 | RAD REPORT ---
EXAM DESCRIPTION: USExtremity Venous Uni Ltd06/03/2019 8:00 am CLINICAL HISTORY: Right leg pain and swelling. COMPARISON: 2014 FINDINGS: Right common femoral, superficial femoral, popliteal and right posterior tibial veins are compressible and demonstrate augmentation. Doppler demonstrates good flow. IMPRESSION: No evidence of deep venous thrombosis involving the right lower extremity.
== END 2019-06-03 08:19 | disposition home or self-care (01) ==
LOC: ER 06:33
DX: M25.561 Pain in right knee (principal); E11.9 Type 2 diabetes mellitus without complications; I10 Essential (primary) hypertension; I25.2 Old myocardial infarction; M10.9 Gout, unspecified
CPT/HCPCS: 93971; 99284

== ENCOUNTER 2020-02-10 19:18 | Emergency (ER) | payer OTHER ==
[2020-02-10] MEDS ORDERED: HYDROCODONE/APAP 5/325 MG TAB ONE (20:13)
--- NOTE | 2020-02-10 21:47 | RAD REPORT ---
EXAM DESCRIPTION: RAD - Shoulder Right 2 View - 02/10/2020 9:39 pm CLINICAL HISTORY: PAIN COMPARISON: None FINDINGS: Right shoulder and right humerus - multiple projections are submitted Mild AC joint and glenohumeral joint arthritic changes are present. No acute fracture, dislocation or aggressive marrow lesion. Prominent olecranon spur noted.
--- NOTE | 2020-02-11 00:06 | ER ---
Nurse's Notes [facility] Name: José Miguel Peraza Jr Age: 70 yrs Sex: Male : 1950 Arrival Date: 02/10/2020 Time: 19:24 Bed 18 Private MD: Diagnosis: Pain in right forearm;Pain in right elbow Presentation: 02/09 19:45 Chief complaint: Patient states: Right arm pain for 2 days. No known trauma. Believes ll1 its a gout flare-up. Makeshift sling in place. Coronavirus screen: Proceed with normal triage. Patient denies a cough. Patient denies shortness of breath or difficulty breathing. Patient denies measured and/or subjective temperature greater than 100.4F prior to today's visit. Patient denies travel on a cruise ship or to a country the [facility] currently lists as an affected area. Patient denies contact with known and/or suspected case of COVID-19. Ebola Screen: Patient denies travel to an Ebola-affected area in the 21 days before illness onset. Initial Sepsis Screen: Does the patient meet any 2 criteria? No. Patient's initial sepsis screen is negative. Does the patient have a suspected source of infection? No. Patient's initial sepsis screen is negative. Risk Assessment: Do you want to hurt yourself or someone else? Patient reports no desire to harm self or others. Onset of symptoms was February 09, 2020. 19:45 Method Of Arrival: [facility] 19:45 Acuity: BRAD 3 ll1 Historical: - Allergies: 19:47 No Known Allergies; ll1 - PMHx: 19:47 Diabetes - NIDDM; Myocardial infarction; Hypertension; Gout; ll1 - Social history:: Smoking status: Patient denies any tobacco usage or history of. Patient/guardian denies using alcohol, street drugs, tobacco products. Screenin:58 Abuse screen: Denies threats or abuse. Nutritional screening: No deficits noted. Tuberculosis screening: No symptoms or risk factors identified. Fall Risk None identified. Assessment: 19:55 General: Appears in no apparent distress. Behavior is calm, cooperative. Pain: Complains of pain in right arm and shoulder. Neuro: Level of Consciousness is awake, alert, Oriented to person, place, time, situation. Cardiovascular: Capillary refill < 3 seconds Patient's skin is warm and dry. Respiratory: Airway is patent Respiratory effort is even, unlabored, Respiratory pattern is regular, symmetrical. GI: No signs and/or symptoms were reported involving the gastrointestinal system. : No signs and/or symptoms were reported regarding the genitourinary system. EENT: No signs and/or symptoms were reported regarding the EENT system. Derm: No signs and/or symptoms reported regarding the dermatologic system. Musculoskeletal: No signs and/or symptoms reported regarding the musculoskeletal system. 22:00 Reassessment: Patient appears in no apparent distress at this time. Patient and/or vc family updated on plan of care and expected duration. Pain level reassessed. Patient is alert, oriented x 3, equal unlabored respirations, skin warm/dry/pink. 23:00 Reassessment: Patient appears in no apparent distress at this time. Patient and/or vc family updated on plan of care and expected duration. Pain level reassessed. Patient is alert, oriented x 3, equal unlabored respirations, skin warm/dry/pink. 02/10 00:18 Reassessment: Patient appears in no apparent distress at this time. Patient and/or vc family updated on plan of care and expected duration. Pain level reassessed. Patient is alert, oriented x 3, equal unlabored respirations, skin warm/dry/pink. Patient states feeling better. Patient states symptoms have improved. Vital Signs: 02/09 19:37 BP 209 / 90 LA (auto/lg); Pulse 82; Resp 20 S; Temp 99.6(O); Pulse Ox 100% on R/A; Pain jp3 9/10; 19:45 Pulse 68; Temp 99.0; Pain 9/10; ll1 22:00 BP 208 / 97; Pulse 69; Resp 18; Pulse Ox 98% on R/A; vc 23:00 BP 198 / 94; Pulse 63; Resp 19; Pulse Ox 99% on R/A; vc 23:30 BP 174 / 80; Pulse 72; Resp 18; Pulse Ox 98% on R/A; vc ED Course: 19:24 Patient arrived in ED. cl3 19:32 Mason Holocmb MD is Attending Physician. mh7 19:38 Patient has correct armband on for positive identification. Bed in low position. Call jp3 light in reach. Side rails up X 1. Verbal reassurance given. Pulse ox on. NIBP on. 19:38 Patient maintains SpO2 saturation greater than 95% on room air. jp3 19:46 Triage completed. ll1 20:00 Sherly Milligan, RN is Primary Nurse. 20:00 Ice pack to injury. jp3 21:40 Humerus Right XRAY In Process Unspecified. EDMS 21:40 Shoulder Right (2 View) XRAY In Process Unspecified. EDMS 22:00 Report received from Sherly Milligan RN. vc 23:02 Primary Nurse role handed off by Sherly Milligan RN vc 23:02 Ana Cabrera, RN is Primary Nurse. vc 23:39 Extremity Venous Uni Ltd US In Process Unspecified. EDMS 02/10 00:03 Shant Orozco MD is Referral Physician. [facility] 00:08 No provider procedures requiring assistance completed. Patient did not have IV access vc during this emergency room visit. Administered Medications: 02/09 20:09 Drug: [place] 5 mg-325 mg 1 tabs Route: PO; 22:00 Follow up: Response: No adverse reaction; Pain is decreased vc Outcome: 02/10 00:05 Discharge ordered by . [facility] 00:08 Condition: good vc 00:18 Discharged to home ambulatory. vc 00:18 Discharge instructions given to patient, Instructed on discharge instructions, follow up and referral plans. Demonstrated understanding of instructions, follow-up care. 00:19 Patient left the ED. vc Signatures: Dispatcher [employer] EDIN Tashi Steiner jp3 Daniel Phelps cl3 Ana Cabrera RN RN Sherly Milligan RN RN Asim Phelps RN RN 1 Mason Holcomb MD MD [facility]
--- NOTE | 2020-02-11 00:07 | EDPHYS ---
Physician Documentation [facility] Name: José Miguel Peraza Jr Age: 70 yrs Sex: Male : 1950 Arrival Date: 02/10/2020 Time: 19:24 Bed 18 Private MD: ED Physician Mason Holcomb HPI: 02/09 19:49 This 70 yrs old Black Male presents to ER via Ambulatory with complaints of Shoulder mh7 Pain. 19:50 This 70 yrs old Black Male presents to ER via Ambulatory with complaints of Shoulder mh7 Pain. 19:51 The patient or guardian complains of pain, that is acute, swelling. The complaints mh7 affect the right antecubital area, right elbow and palmar aspect of right forearm. Context: The problem was sustained at an unknown location, resulted from unknown cause. Onset: The symptoms/episode began/occurred 2 day(s) ago. Treatment prior to arrival includes: over the counter medications, Tylenol, sling. Modifying factors: The symptoms are alleviated by remaining still, the symptoms are aggravated by movement, bending arm. Associated signs and symptoms: Pertinent positives: decreased range of motion, pain, swelling, Pertinent negatives: deformity, erythema, fever, nausea, numbness, tingling, vomiting, warmth, weakness. Severity of symptoms: At their worst the symptoms were moderate, 2 day(s) ago, in the emergency department the symptoms are unchanged, despite home interventions. Historical: - Allergies: 19:47 No Known Allergies; ll1 - PMHx: 19:47 Diabetes - NIDDM; Myocardial infarction; Hypertension; Gout; ll1 - Social history:: Smoking status: Patient denies any tobacco usage or history of. Patient/guardian denies using alcohol, street drugs, tobacco products. ROS: 19:51 Constitutional: Negative for fever, chills, and weight loss, Eyes: Negative for injury, mh7 pain, redness, and discharge, ENT: Negative for injury, pain, and discharge, Neck: Negative for injury, pain, and swelling, Cardiovascular: Negative for chest pain, palpitations, and edema, Respiratory: Negative for shortness of breath, cough, wheezing, and pleuritic chest pain, Abdomen/GI: Negative for abdominal pain, nausea, vomiting, diarrhea, and constipation, Back: Negative for injury and pain, : Negative for injury, bleeding, discharge, and swelling. 19:51 Skin: Negative for injury, rash, and discoloration, Neuro: Negative for headache, weakness, numbness, tingling, and seizure, Psych: Negative for depression, anxiety, suicide ideation, homicidal ideation, and hallucinations, Allergy/Immunology: Negative for hives, rash, and allergies, Endocrine: Negative for neck swelling, polydipsia, polyuria, polyphagia, and marked weight changes, Hematologic/Lymphatic: Negative for swollen nodes, abnormal bleeding, and unusual bruising. 19:51 MS/extremity: Negative for injury or acute deformity, abrasion, bite, contusion, deformity, ecchymosis, erythema, laceration, paresthesias, puncture, rash, tingling, warmth. Exam: 19:51 Constitutional: This is a well developed, well nourished patient who is awake, alert, mh7 and in no acute distress. Head/Face: Normocephalic, atraumatic. Eyes: Pupils equal round and reactive to light, extra-ocular motions intact. Lids and lashes normal. Conjunctiva and sclera are non-icteric and not injected. Cornea within normal limits. Periorbital areas with no swelling, redness, or edema. ENT: Nares patent. No nasal discharge, no septal abnormalities noted. Tympanic membranes are normal and external auditory canals are clear. Oropharynx with no redness, swelling, or masses, exudates, or evidence of obstruction, uvula midline. Mucous membranes moist. Neck: Trachea midline, no thyromegaly or masses palpated, and no cervical lymphadenopathy. Supple, full range of motion without nuchal rigidity, or vertebral point tenderness. No Meningismus. Chest/axilla: Normal chest wall appearance and motion. Nontender with no deformity. No lesions are appreciated. Cardiovascular: Regular rate and rhythm with a normal S1 and S2. No gallops, murmurs, or rubs. Normal PMI, no JVD. No pulse deficits. Respiratory: Lungs have equal breath sounds bilaterally, clear to auscultation and percussion. No rales, rhonchi or wheezes noted. No increased work of breathing, no retractions or nasal flaring. Abdomen/GI: Soft, non-tender, with normal bowel sounds. No distension or tympany. No guarding or rebound. No evidence of tenderness throughout. Back: No spinal tenderness. No costovertebral tenderness. Full range of motion. Skin: Warm, dry with normal turgor. Normal color with no rashes, no lesions, and no evidence of cellulitis. 19:51 Neuro: Awake and alert, GCS 15, oriented to person, place, time, and situation. Cranial nerves II-XII grossly intact. Motor strength 5/5 in all extremities. Sensory grossly intact. Cerebellar exam normal. Normal gait. 19:51 Musculoskeletal/extremity: Extremities: grossly normal except: noted in the palmar aspect of right forearm and right antecubital area: decreased ROM, tenderness, pain, ROM: limited active range of motion due to pain, in the palmar aspect of right forearm and right elbow and right antecubital area, limited passive range of motion due to pain, in the palmar aspect of right forearm and right elbow and right antecubital area, Circulation is intact in all extremities. Pulses: are normal with no appreciated deficits, Perfusion: the patient is normally perfused throughout, noted to have brisk capillary refill, Perfusion: the extremity is normally perfused throughout, with brisk capillary refill, Calf tenderness, is absent, Edema, is not appreciated, Sensation intact. Compartment Syndrome exam of affected extremity: is normal. no numbness, no tingling, no sensation deficit, no palor, no weak pulses, Joints: All joints appear normal with full range of motion. Weight bearing: able to fully bear weight, without difficulty, Tendon exam: specific tendon testing normal through active and passive range of motion DVT Exam: no swelling, negative Homans' sign noted on exam, no appreciated bluish discoloration, no erythema, no increased warmth, Calves: are non-tender, have equal circumference. Vital Signs: 19:37 BP 209 / 90 LA (auto/lg); Pulse 82; Resp 20 S; Temp 99.6(O); Pulse Ox 100% on R/A; Pain jp3 9/10; 19:45 Pulse 68; Temp 99.0; Pain 9/10; ll1 22:00 BP 208 / 97; Pulse 69; Resp 18; Pulse Ox 98% on R/A; vc 23:00 BP 198 / 94; Pulse 63; Resp 19; Pulse Ox 99% on R/A; vc 23:30 BP 174 / 80; Pulse 72; Resp 18; Pulse Ox 98% on R/A; vc MDM: 19:33 Patient medically screened. [facility] 23:56 Differential diagnosis: closed fracture, contusion, gout, DVT, musculoskeletal pain. [facility] Data reviewed: vital signs, nurses notes, radiologic studies, plain films, ultrasound. 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 Interpretation: normal. Counseling: I had a detailed discussion with the patient and/or guardian regarding: the historical points, exam findings, and any diagnostic results supporting the discharge/admit diagnosis, the presence of at least one elevated blood pressure reading (>120/80) during this emergency department visit, radiology results, the need for outpatient follow up. Response to treatment: the patient's symptoms have markedly improved after treatment. ED course: Feels better, NAD, VSS, neurovascularly in tact, no focal neurological deficits. Pain has improved significantly and has improved with range of motion as well. Discussed all test results and findings with the patient and answered all of his questions. He requests to be discharged home. He will follow up with his doctor in next 1-2 days. Explained that he needs to return to the ED if worsening of symptoms or other concerns.. 02/09 19:50 Order name: Humerus Right XRAY [facility] 02/09 19:50 Order name: Shoulder Right (2 View) XRAY; Complete Time: 23:45 [facility] 02/09 21:32 Order name: Extremity Venous Uni Ltd [facility] Administered Medications: 20:09 Drug: [place]ox[place] 5 mg-325 mg 1 tabs Route: PO; 22:00 Follow up: Response: No adverse reaction; Pain is decreased vc Disposition: 02/11/20 00:05 Discharged to Home. Impression: Pain in right forearm, Pain in right elbow. - Condition is Stable. - Discharge Instructions: Musculoskeletal Pain. - Medication Reconciliation Form, Thank You Letter, Antibiotic Education, Prescription Opioid Use form. - Follow up: Private Physician; When: 1 - 2 days; Reason: Worsening of condition, Re-evaluation by your physician. Follow up: Shant Orozco MD; When: 1 - 2 days; Reason: Worsening of condition, Re-evaluation by your physician. - Problem is new. - Symptoms have improved. Signatures: Dispatcher [employer] EDMS Ana Cabrera RN RN vc Harris, Amy, RN RN Asim Esteves RN RN ll1 Mason Holcomb MD MD mh7 Corrections: (The following items were deleted from the chart) 21:39 19:50 Forearm Right+RAD.RAD.BRZ ordered. EDDC EDDC 21:39 19:50 Elbow Right 3 View+RAD.RAD.BRZ ordered. [facility] EDDC 02/10 00:19 00:05 02/11/2020 00:05 Discharged to Home. Impression: Pain in right forearm; Pain in vc right elbow. Condition is Stable. Forms are Medication Reconciliation Form, Thank You Letter, Antibiotic Education, Prescription Opioid Use. Follow up: Private Physician; When: 1 - 2 days; Reason: Worsening of condition, Re-evaluation by your physician. Follow up: Dr. Shant Orozco; When: 1 - 2 days; Reason: Worsening of condition, Re-evaluation by your physician. Problem is new. Symptoms have improved. mh7
[2020-02-11 00:26] VITALS: TEMP 99
[2020-02-11 00:30] VITALS: BP 174/80; O2SAT 98
--- NOTE | 2020-02-11 13:02 | RAD REPORT ---
CLINICAL HISTORY: The patient is 70 years old and is Male; PAIN Extremity Venous Uni Ltd TECHNIQUE: Real-time duplex ultrasound scan of the right upper extremity veins integrating B-mode tw o-dimensional vascular structure, Doppler spectral analysis, color flow Doppler imaging and compressi on. COMPARISON: No relevant prior studies available. FINDINGS: DEEP VEINS: Unremarkable. No DVT in the internal jugular, subclavian, axillary, or brachial vei ns. The veins demonstrate normal color flow, are normally compressible, with normal phasic flow and /or augmentation response. SUPERFICIAL VEINS: Unremarkable. No thrombus in the visualized basilic and cephalic veins. SOFT TISSUES: No acute findings. IMPRESSION: Normal right upper extremity duplex venous ultrasound. Electronically signed by: Jaye Ann MD 02/10/2020 11:52 PM CDT Due to temporary technical issues with the PACS/Fluency reporting system, reports are being signed by the in house radiologist as a courtesy to ensure prompt reporting. The interpreting radiologist is f ully responsible for the content of the report.
--- NOTE | 2020-02-12 09:41 | RAD REPORT ---
EXAM DESCRIPTION: RAD - Humerus Right - 02/10/2020 9:39 pm CLINICAL HISTORY: PAIN COMPARISON: None FINDINGS: Right shoulder and right humerus - multiple projections are submitted Mild AC joint and glenohumeral joint arthritic changes are present. No acute fracture, dislocation or aggressive marrow lesion. Prominent olecranon spur noted.
== END 2020-02-11 00:19 | disposition home or self-care (01) ==
LOC: ER 19:18
DX: M79.631 Pain in right forearm (principal); M25.521 Pain in right elbow; I10 Essential (primary) hypertension; I25.2 Old myocardial infarction
CPT/HCPCS: 93971; 99284

== ENCOUNTER 2020-04-10 13:13 | Inpatient (IN) | payer OTHER ==
[2020-04-10 16:07] LABS: Absolute Lymphocytes (CBC) 1.1 K/uL (0.7-4.9); Basophils % 0.4 % (0-1.3); Hematocrit 42.8 % (39.6-49.0); MPV 10.3 fL (7.6-11.3); RBC Red Blood Cell Count 5.18 M/uL (4.33-5.43)
[2020-04-10 16:08] LABS: Protime INR 0.97
[2020-04-10 16:19] LABS: ALT/SGPT 34 U/L (12-78); AST/SGOT 46 U/L (15-37); Albumin 3.1 g/dL (3.4-5.0); Alkaline Phosphatase 48 U/L (45-117); Amylase 106 U/L (25-115); BUN Blood Urea Nitrogen 69 mg/dL (7-18); Bicarbonate 18 mmol/L (21-32); Bilirubin Direct < 0.1 mg/dL (0-0.2); Bilirubin Total 0.2 mg/dL (0.2-1.0); CKMB Creatine Kinase MB 1.6 ng/mL (0.3-3.6); Creatine Phosphokinase 927 U/L (39-308); Glucose Level 115 mg/dL (74-106); Lipase 263 U/L (73-393); Potassium 4.2 mmol/L (3.5-5.1); Protein, Total 8.6 g/dL (6.4-8.2); Sodium Level 139 mmol/L (136-145); Troponin (Emerg Dept Use Only) 0.12 ng/mL (0.0-0.045)
--- NOTE | 2020-04-10 16:39 | RAD REPORT ---
EXAM DESCRIPTION: RAD - Chest Single View - 04/10/2020 4:30 pm CLINICAL HISTORY: CONGESTION Chest pain. COMPARISON: Chest Single View dated 08/12/2018; Chest Single View dated 03/19/2017; Chest Single View dated 12/16/2016; CHEST SINGLE VIEW dated 10/07/2015 FINDINGS: Portable technique limits examination quality. Moderate bilateral pulmonary opacities are present, greater on the right, suspicious for interstitial pneumonia. The heart is moderately enlarged in size. No displaced fractures.
--- NOTE | 2020-04-10 16:56 | EDPHYS ---
Physician Documentation [facility] Name: José Miguel Peraza Jr Age: 70 yrs Sex: Male : 1950 Arrival Date: 04/10/2020 Time: 13:22 Bed 7 Private MD: ED Physician Carlton Wilson HPI: 04/10 13:58 This 70 yrs old Black Male presents to ER via Wheelchair with complaints of FEVER AND kdr AND PAINS ON THE LEFT SIDE OF THE BODY. 13:58 The patient states that he is feeling poorly for about two weeks with cough and more kdr recently, hurting all over down to his knees. He has had nausea but no vomiting. Onset: The symptoms/episode began/occurred gradually, 2 week(s) ago. Severity of symptoms: At their worst the symptoms were moderate severe just prior to arrival, in the emergency department the symptoms are worse mildly. The patient has not experienced similar symptoms in the past. The patient has not recently seen a physician. Historical: - Allergies: 13:43 No Known Allergies; ca1 - Home Meds: 13:43 Plavix 75 mg Oral tab 1 tab once daily [Active]; metoprolol tartrate 100 mg Oral tab 1 ca1 tab 2 times per day [Active]; doxazosin 4 mg Oral tab 1 tab three times a day [Active]; Lasix 40 mg Oral tab 1 tab once daily [Active]; simvastatin 40 mg Oral tab 1 tab once daily [Active]; ramipril 10 mg Oral cap 1 cap once daily [Active]; hydralazine 100 mg Oral tab 1 tab 2 times per day [Active]; - PMHx: 13:43 Diabetes - NIDDM; Hypertension; Myocardial infarction; Gout; ca1 - Immunization history:: Adult Immunizations up to date. - Social history:: Smoking status: Patient denies any tobacco usage or history of. ROS: 13:58 Constitutional: Negative for fever, chills, and weight loss until the last few days - kdr the pt is a poor historian Eyes: Negative for injury, pain, redness, and discharge, ENT: Negative for injury, pain, and discharge, Neck: Negative for injury, pain, and swelling, Cardiovascular: Negative for chest pain, palpitations, and edema, Back: Negative for injury and pain, : Negative for injury, bleeding, discharge, and swelling, MS/Extremity: Negative for injury and deformity, Skin: Negative for injury, rash, and discoloration, Neuro: Negative for headache, weakness, numbness, tingling, and seizure activity. Psych: Negative for depression, anxiety, suicide ideation, homicidal ideation, and hallucinations, Allergy/Immunology: Negative for hives, rash, and allergies, Endocrine: Negative for neck swelling, polydipsia, polyuria, polyphagia, and marked weight changes, Hematologic/Lymphatic: Negative for swollen nodes, abnormal bleeding, and unusual bruising. 13:58 Respiratory: Positive for cough, with no reported sputum, dyspnea on exertion, shortness of breath, Negative for hemoptysis, orthopnea, pleurisy. Exam: 16:56 Constitutional: This is a well developed, well nourished patient who is awake, alert, kdr and in moderate distress. Head/Face: Normocephalic, atraumatic. Eyes: Pupils equal round and reactive to light, extra-ocular motions intact. Lids and lashes normal. Conjunctiva and sclera are non-icteric and not injected. Cornea within normal limits. Periorbital areas with no swelling, redness, or edema. Neck: Trachea midline, no thyromegaly or masses palpated, and no cervical lymphadenopathy. Supple, full range of motion without nuchal rigidity, or vertebral point tenderness. No Meningismus. Chest/axilla: Normal chest wall appearance and motion. Nontender with no deformity. No lesions are appreciated. Cardiovascular: Regular rate and rhythm with a normal S1 and S2. No gallops, murmurs, or rubs. Normal PMI, no JVD. No pulse deficits. Respiratory: Lungs have equal breath sounds bilaterally, clear to auscultation and percussion. No rales, rhonchi or wheezes noted. No increased work of breathing, no retractions or nasal flaring. Abdomen/GI: Soft, non-tender, with normal bowel sounds. No distension or tympany. No guarding or rebound. No evidence of tenderness throughout. Back: No spinal tenderness. No costovertebral tenderness. Full range of motion. Skin: Warm, dry with normal turgor. Normal color with no rashes, no lesions, and no evidence of cellulitis. MS/ Extremity: Pulses equal, no cyanosis. Neurovascular intact. Full, normal range of motion. Neuro: Awake and alert, GCS 15, oriented to person, place, time, and situation. Cranial nerves II-XII grossly intact. Motor strength 5/5 in all extremities. Sensory grossly intact. Cerebellar exam normal. Normal gait. Psych: Awake, alert, with orientation to person, place and time. Behavior, mood, and affect are within normal limits. 18:41 ECG was reviewed by the Attending Physician. kdr Vital Signs: 13:34 BP 139 / 81; Pulse 93; Resp 24 S; Temp 101.3(O); Pulse Ox 96% on R/A; Weight 86.18 kg ca1 (R); Height 5 ft. 1 in. (154.94 cm) (R); 14:43 BP 151 / 98; Pulse 93; Resp 16; Pulse Ox 97% on R/A; ph 16:00 BP 138 / 74; Pulse 89; Resp 18; Pulse Ox 97% on R/A; ph 16:51 BP 142 / 78; Pulse 89; Resp 20; Temp 98.9(O); Pulse Ox 97% on R/A; ph 18:23 BP 132 / 92; Pulse 97; Resp 24; Temp 98.2; Pulse Ox 95% on R/A; ph 18:54 BP 148 / 94; Pulse 130; Resp 18; Temp 98.9(O); Pulse Ox 98% on R/A; ph 20:18 BP 126 / 67; Pulse 92; Resp 17; Pulse Ox 99% ; rr5 13:34 Body Mass Index 35.90 (86.18 kg, 154.94 cm) ca1 MDM: 16:55 Patient medically screened. kdr 16:58 Data reviewed: vital signs. Counseling: I had a detailed discussion with the patient kdr and/or guardian regarding: the historical points, exam findings, and any diagnostic results supporting the discharge/admit diagnosis, lab results, radiology results, the need for further work-up and treatment in the hospital. 04/10 13:42 Order name: Amylase, Serum kdr 04/10 13:42 Order name: Basic Metabolic Panel kdr 04/10 13:42 Order name: Blood Culture Adult (2) kdr 04/10 13:42 Order name: CBC with Diff kdr 04/10 13:42 Order name: Ckmb kdr 04/10 13:42 Order name: CPK kdr 04/10 13:42 Order name: Lactate kdr 04/10 13:42 Order name: LFT's kdr 04/10 13:42 Order name: Lipase kdr 04/10 13:42 Order name: Procalcitonin kdr 04/10 13:42 Order name: Protime (+inr) kdr 04/10 13:42 Order name: Ptt, Activated kdr 04/10 13:42 Order name: Troponin (emerg Dept Use Only) kdr 04/10 13:42 Order name: Urine Microscopic Only kdr 04/10 14:12 Order name: Flu kdr 04/10 14:59 Order name: CORONAVIRUS; Complete Time: 15:29 EDMS 04/10 15:26 Order name: Influenza Screen (A ; Complete Time: 15:29 EDMS 04/10 16:10 Order name: Protime (+INR); Complete Time: 16:34 EDMS 04/10 16:11 Order name: CBC with Automated Diff; Complete Time: 16:34 EDMS 04/10 16:12 Order name: Influenza Screen (A EDID 04/10 16:12 Order name: CORONAVIRUS EDID 04/10 16:19 Order name: Basic Metabolic Panel; Complete Time: 16:34 EDMS 04/10 16:19 Order name: Liver (Hepatic) Function; Complete Time: 16:34 EDMS 04/10 16:19 Order name: Creatine Phosphokinase; Complete Time: 16:34 EDMS 04/10 16:19 Order name: CKMB Creatine Kinase MB; Complete Time: 16:34 EDMS 04/10 16:19 Order name: Troponin (Emerg Dept Use Only); Complete Time: 16:34 EDID 04/10 16:19 Order name: Amylase; Complete Time: 16:34 EDID 04/10 16:19 Order name: Lipase; Complete Time: 16:34 EDMS 04/10 16:26 Order name: Lactate; Complete Time: 16:34 EDMS 04/10 16:35 Order name: Procalcitonin; Complete Time: 16:49 EDID 04/10 13:42 Order name: Chest Single View XRAY kdr 04/10 13:42 Order name: Accucheck; Complete Time: 14:15 kdr 04/10 13:42 Order name: Cardiac monitoring; Complete Time: 14:15 [facility] 04/10 13:42 Order name: EKG - Nurse/Tech; Complete Time: 14:25 kdr 04/10 13:42 Order name: IV Saline Lock - Large Bore; Complete Time: 14:15 kdr 04/10 13:42 Order name: Labs collected and sent; Complete Time: 14:15 kdr 04/10 13:42 Order name: O2 Per Protocol; Complete Time: 14:16 kdr 04/10 13:42 Order name: O2 Sat Monitoring; Complete Time: 14:16 kdr 04/10 16:42 Order name: RAD; Complete Time: 16:49 EDMS 04/10 17:05 Order name: CT Chest, Abdomen, Pelvis - W/Contrast kdr 04/10 17:24 Order name: Lactate; Complete Time: 17:29 EDMS 04/10 18:26 Order name: CT; Complete Time: 19:01 EDMS 04/10 20:46 Order name: Urine Dipstick--Ancillary (enter results) mw2 04/10 21:06 Order name: Urine Microscopic Only EDID 04/10 21:18 Order name: Glucose, Ancillary Testing EDID 04/10 22:04 Order name: Urine Dipstick-Ancillary EDID 04/11 01:29 Order name: Blood Culture EDID 04/11 01:30 Order name: Influenza Screen (A EDMS 04/11 05:47 Order name: CBC with Automated Diff EDMS 04/11 06:44 Order name: Basic Metabolic Panel EDMS 04/11 06:44 Order name: Uric Acid EDMS 04/11 06:44 Order name: Phosphorus EDMS 04/11 06:44 Order name: Creatine Phosphokinase EDMS 04/11 06:44 Order name: Magnesium EDID 04/11 08:02 Order name: Glucose, Ancillary Testing EDID 04/11 13:00 Order name: Glucose, Ancillary Testing EDMS 04/11 15:51 Order name: Blood Culture EDMS 04/11 15:51 Order name: Blood Culture EDMS 04/11 17:32 Order name: Glucose, Ancillary Testing EDMS 04/10 13:42 Order name: Urine Dipstick-Ancillary (obtain specimen); Complete Time: 20:45 kdr EC:41 Rate is 96 beats/min. Rhythm is regular, Sinus Rhythm with No ectopy. QRS [place] is kdr Normal. [place] interval is normal. QRS interval is normal. Clinical impression: NSR w/ Non-specific ST/T Changes. Administered Medications: 14:13 Drug: Tylenol 1000 mg Route: PO; ph 16:00 Follow up: Response: No adverse reaction; Temperature is decreased ph 14:13 Drug: Zithromax 500 mg Route: PO; ph 14:30 Follow up: Response: No adverse reaction ph 14:14 Drug: Rocephin - (cefTRIAXone) 1 grams Route: IVPB; Infused Over: 30 mins; Site: right ph antecubital; 14:30 Follow up: Response: No adverse reaction; IV Status: Completed infusion ph Disposition: 04/10/20 16:55 Hospitalization ordered by Jsawant Milian for Observation. Preliminary diagnosis are Pneumonia, unspecified organism, Non-ST elevation (NSTEMI) myocardial infarction, Fever, unspecified, Acute Renal failure. - Bed requested for Telemetry/MedSurg (observation). - Status is Observation. iw - Condition is Fair. - Problem is new. - Symptoms have improved. Signatures: Dispatcher [employer] EDMS Carlton Wilson MD MD kdr Rosa Batista RN RN iw Willian Milner, STRAIGHTENING ROLL OPERATOR-C STRAIGHTENING ROLL OPERATOR-Cla1 Kimberly Martinez RN RN Kesha Horta RN RN Niall Anna, RN RN ja1 Monalisa Noble, RN RN ca1 Corrections: (The following items were deleted from the chart) 17:04 16:55 Hospitalization Ordered by Jaswant Milian DO for Observation. Preliminary [facility] diagnosis is Pneumonia, unspecified organism; Non-ST elevation (NSTEMI) myocardial infarction; Fever, unspecified. Bed requested for Telemetry/MedSurg (observation). Status is Observation. Condition is Fair. Problem is new. Symptoms have improved. kdr 20:48 17:04 04/10/2020 16:55 Hospitalization Ordered by Jaswant Milian DO for Observation. Preliminary diagnosis is Pneumonia, unspecified organism; Non-ST elevation (NSTEMI) myocardial infarction; Fever, unspecified; Acute Renal failure. Bed requested for Telemetry/MedSurg (observation). Status is Observation. Condition is Fair. Problem is new. Symptoms have improved. kdr 04/11 17:19 04/10 20:48 04/10/2020 16:55 Hospitalization Ordered by Jaswant Milian DO for ja1 Observation. Preliminary diagnosis is Pneumonia, unspecified organism; Non-ST elevation (NSTEMI) myocardial infarction; Fever, unspecified; Acute Renal failure. Bed requested for [facility] ER HOLD. Status is Observation. Condition is Fair. Problem is new. Symptoms have improved. 04/11 18:51 17:19 04/10/2020 16:55 Hospitalization Ordered by Jaswant Milian DO for Observation. iw Preliminary diagnosis is Pneumonia, unspecified organism; Non-ST elevation (NSTEMI) myocardial infarction; Fever, unspecified; Acute Renal failure. Bed requested for Telemetry/MedSurg (observation). Status is Observation. Condition is Fair. Problem is new. Symptoms have improved. ja1
--- NOTE | 2020-04-10 16:56 | ER ---
Nurse's Notes [facility] Name: José Miguel Peraza Jr Age: 70 yrs Sex: Male : 1950 Arrival Date: 04/10/2020 Time: 13:22 Bed 7 Private MD: Diagnosis: Pneumonia, unspecified organism;Non-ST elevation (NSTEMI) myocardial infarction;Fever, unspecified;Acute Renal failure Presentation: 04/10 13:34 Chief complaint: Patient states: Cough and body aches since 2 weeks ago. Loss of ca1 appetite, N/V/diarrhea, SOB. Htemp 102.2F. Coronavirus screen: Surgical mask placed on patient. Patient moved to private room, placed in contact and droplet isolation with eye protection until further assessment. Patient reports a cough. Patient reports shortness of breath or difficulty breathing. Patient reports a measured and/or subjective temperature greater than 100.4F. Patient denies travel on a cruise ship or to a country the [facility] currently lists as an affected area. Patient denies contact with known and/or suspected case of COVID-19. Surgical mask in place. Instructed on keeping mask at all times and keep 6 feet distance from other people in the lobby. Verbalized understanding. Ebola Screen: Patient negative for fever greater than or equal to 101.5 degrees Fahrenheit, and additional compatible Ebola Virus Disease symptoms Patient denies exposure to infectious person. Patient denies travel to an Ebola-affected area in the 21 days before illness onset. No symptoms or risks identified at this time. Initial Sepsis Screen: Does the patient meet any 2 criteria? RR > 20 per min. Temp <36.0*C (96.8*F)) or > 38.3*C (100.9*F). HR > 90 bpm. Yes Does the patient have a suspected source of infection? Yes: Productive cough/pneumonia. Risk Assessment: Do you want to hurt yourself or someone else? Patient reports no desire to harm self or others. Onset of symptoms was April 10, 2020. 13:34 Method Of Arrival: Wheelchair ca1 13:34 Acuity: BRAD 2 ca1 Historical: - Allergies: 13:43 No Known Allergies; ca1 - Home Meds: 13:43 Plavix 75 mg Oral tab 1 tab once daily [Active]; metoprolol tartrate 100 mg Oral tab 1 ca1 tab 2 times per day [Active]; doxazosin 4 mg Oral tab 1 tab three times a day [Active]; Lasix 40 mg Oral tab 1 tab once daily [Active]; simvastatin 40 mg Oral tab 1 tab once daily [Active]; ramipril 10 mg Oral cap 1 cap once daily [Active]; hydralazine 100 mg Oral tab 1 tab 2 times per day [Active]; - PMHx: 13:43 Diabetes - NIDDM; Hypertension; Myocardial infarction; Gout; ca1 - Immunization history:: Adult Immunizations up to date. - Social history:: Smoking status: Patient denies any tobacco usage or history of. Screenin:25 Abuse screen: Denies threats or abuse. Denies injuries from another. Nutritional ph screening: No deficits noted. Tuberculosis screening: No symptoms or risk factors identified. Fall Risk None identified. Assessment: 14:41 General: Appears in no apparent distress. comfortable, Behavior is cooperative, ph appropriate for age, Reports chills for fever for > 3 days. 14:42 Pain: Complains of pain in body aches. Neuro: Level of Consciousness is awake, alert, ph obeys commands, Oriented to person, place. Cardiovascular: Reports fatigue, nausea, shortness of breath, vomiting, Denies chest pain, Capillary refill < 3 seconds in bilateral fingers Patient's skin is warm and dry. Rhythm is sinus rhythm. Respiratory: Reports shortness of breath at rest Airway is patent Respiratory effort is even, unlabored, Respiratory pattern is regular, symmetrical, Denies cough. GI: Reports diarrhea, nausea, vomiting. Derm: Skin is intact, Skin is pink, warm \T\ dry. Musculoskeletal: Circulation, motion, and sensation intact. Range of motion: intact in all extremities. 16:00 Reassessment: Patient appears in no apparent distress at this time. Patient and/or ph family updated on plan of care and expected duration. Pain level reassessed. Patient is alert, oriented x 3, equal unlabored respirations, skin warm/dry/pink. 17:15 Reassessment: Patient appears in no apparent distress at this time. Patient and/or ph family updated on plan of care and expected duration. Pain level reassessed. Patient is alert, oriented x 3, equal unlabored respirations, skin warm/dry/pink. 18:50 Reassessment: Patient appears in no apparent distress at this time. Patient and/or family updated on plan of care and expected duration. Pain level reassessed. Patient is alert, oriented x 3, equal unlabored respirations, skin warm/dry/pink. Pt resting comfortably w/ eyes closed, HR noted to have increased to 133, pt denies palpitations or chest pain, afebrile w/ oral temp of 98.9, ERP aware of vitals, will continue to monitor. 19:30 Reassessment: Patient appears in no apparent distress at this time. Patient and/or family updated on plan of care and expected duration. Pain level reassessed. Patient is alert, oriented x 3, equal unlabored respirations, skin warm/dry/pink. 21:00 Reassessment: Patient appears in no apparent distress at this time. No changes from previously documented assessment. Patient and/or family updated on plan of care and expected duration. Pain level reassessed. Patient is alert, oriented x 3, equal unlabored respirations, skin warm/dry/pink. Vital Signs: 13:34 BP 139 / 81; Pulse 93; Resp 24 S; Temp 101.3(O); Pulse Ox 96% on R/A; Weight 86.18 kg ca1 (R); Height 5 ft. 1 in. (154.94 cm) (R); 14:43 BP 151 / 98; Pulse 93; Resp 16; Pulse Ox 97% on R/A; ph 16:00 BP 138 / 74; Pulse 89; Resp 18; Pulse Ox 97% on R/A; ph 16:51 BP 142 / 78; Pulse 89; Resp 20; Temp 98.9(O); Pulse Ox 97% on R/A; ph 18:23 BP 132 / 92; Pulse 97; Resp 24; Temp 98.2; Pulse Ox 95% on R/A; ph 18:54 BP 148 / 94; Pulse 130; Resp 18; Temp 98.9(O); Pulse Ox 98% on R/A; ph 20:18 BP 126 / 67; Pulse 92; Resp 17; Pulse Ox 99% ; rr5 13:34 Body Mass Index 35.90 (86.18 kg, 154.94 cm) ca1 ED Course: 13:22 Patient arrived in ED. fj1 13:40 Triage completed. ca1 13:42 Carlton Wilson MD is Attending Physician. kdr 13:43 Arm band placed on right wrist. ca1 14:00 Initial lab(s) drawn, by ED staff, sent to lab. Inserted saline lock: 22 gauge in right ph antecubital area, using aseptic technique. Blood collected. 14:26 Patient has correct armband on for positive identification. Placed in gown. Bed in low ph position. Call light in reach. Side rails up X2. supply chain buyer on. Pulse ox on. NIBP on. 14:41 Kimberly Martinez RN is Primary Nurse. ph 16:54 Jaswant Milian DO is Hospitalizing Provider. kdr 18:23 No provider procedures requiring assistance completed. ph 18:23 Patient admitted, IV remains in place. ph 20:45 Urine collected: clean catch specimen, clear. rr5 04/11 06:47 Primary Nurse role handed off by Kimberly Martinez RN 08:39 Diet: Patient given a heart healthy meal tray. [facility] 18:51 Rosa Batista RN is Primary Nurse. iw Administered Medications: 04/10 14:13 Drug: Tylenol 1000 mg Route: PO; ph 16:00 Follow up: Response: No adverse reaction; Temperature is decreased ph 14:13 Drug: Zithromax 500 mg Route: PO; ph 14:30 Follow up: Response: No adverse reaction ph 14:14 Drug: Rocephin - (cefTRIAXone) 1 grams Route: IVPB; Infused Over: 30 mins; Site: right ph antecubital; 14:30 Follow up: Response: No adverse reaction; IV Status: Completed infusion ph Outcome: 16:55 Decision to Hospitalize by Provider. kdr 21:00 Admitted to ER Hold. Please see [facility] for further documentation. 21:00 Condition: stable 21:00 Instructed on the need for admit. 04/11 18:51 Patient left the ED. iw Signatures: Carlton Wilson MD MD kdr Williams, Irene, RN RN iw Kimberly Martinez RN RN Sarah Haney 5 Allyson Bustillos Alicia Rodriguez Raymond, RN RN rr5 Monalisa Noble RN RN ca1 Cecilio Sena [facility] Corrections: (The following items were deleted from the chart) 04/10 13:49 13:34 Coronavirus screen: Patient reports a cough. Patient reports shortness of breath ca1 or difficulty breathing. Patient reports a measured and/or subjective temperature greater than 100.4F. Patient denies travel on a cruise ship or to a country the [facility] currently lists as an affected area. Patient denies contact with known and/or suspected case of COVID-19. Surgical mask in place. Instructed on keeping mask at all times and keep 6 feet distance from other people in the lobby. Verbalized understanding ca1 14:43 14:41 General: Appears in no apparent distress. comfortable, Behavior is cooperative, ph appropriate for age, Reports ph
--- NOTE | 2020-04-10 18:24 | RAD REPORT ---
EXAM DESCRIPTION: CT - Chest Abd Pelvis Wo Con - 04/10/2020 6:09 pm CLINICAL HISTORY: Chest and abdomen pain. PAIN COMPARISON: Chest Single View dated 04/10/2020 TECHNIQUE: A limited noncontrast study was performed. All CT scans are performed using dose optimization technique as appropriate and may include automated exposure control or mA/KV adjustment according to patient size. FINDINGS: Mild ground-glass opacities are present bilaterally, greatest in the lung bases.This may i ndicate interstitial pneumonia.No pleural or pericardial effusion.No intrathoracic adenopathy. The liver, spleen, pancreas, adrenal glands and kidneys are within normal limits for noncontrast stud y. No bowel obstruction, free air, free fluid or abscess. The appendix is not identified as a discrete s tructure, however, no secondary findings of appendicitis are identified. Mild nonspecific distention of large and small bowel loops are seen with air which may indicate ileus. No pathologic lymphadenop athy in the abdomen or pelvis. Moderate lumbosacral degenerative changes. IMPRESSION: Ground-glass opacities in both lungs greatest in the bases are seen. Consider the possib ility of COVID pneumonia. Mild adynamic ileus is seen.
--- NOTE | 2020-04-10 18:42 | P.HP ---
Certification for Inpatient Patient admitted to: Inpatient With expected LOS: >2 Midnights Patient will require the following post-hospital care: None Practitioner: I am a practitioner with admitting privileges, knowledge of patient current condition, hospital course, and medical plan of care. Services: Services provided to patient in accordance with Admission requirements found in Title 42 Section 412.3 of the Code of Federal Regulations Patient History Date of Service: 04/10/20 Reason for admission: Bilateral pneumonia, acute on chronic renal failure History of Present Illness: 62-year-old male with medical history of [id number]-lprwhllsd diabetes mellitus, hypertension, myocardial infarction, gout, chronic kidney disease presented the emergency department with fever and 2 week history of dry cough. Patient was evaluated in the emergency department and found to have a bilateral pneumonia a significantly elevated creatinine. Patient was not hypoxic at the time of admission. COVID swab was obtained in the emergency department. ED provider wishes to admit patient for further evaluation and management of this condition. When I saw the patient in the emergency department he was not in any distress. Patient able to speak in full sentences, oxygen saturation with normal limits. Consulted with the patient's lockstitch sleeve setter who stated that patient's last noted creatinine was 3.08 and his GFR was 25. This is diminished to a creatinine of 4.71 and GFR 15 patient patient does appear dry. Patient will be admitted for further evaluation and management. Allergies No Known Drug Allergies Allergy (Verified 12/16/16 16:06) Unknown No Known Allergies Allergy (Uncoded 03/19/17 06:13) Unknown Home Medications: Simvastatin [Zocor*] 40 mg PO BEDTIME #30 tablet 01/30/14 Clopidogrel Bisulfate [Plavix*] 75 mg PO DAILY #30 tablet 12/17/16 Doxazosin [Cardura*] 2 mg PO TID 12/17/16 Furosemide 40 mg PO DAILY 12/17/16 Insulin Detemir [Levemir Flextouch] 20 unit SQ DAILY 12/17/16 Ramipril 5 mg PO BEDTIME 12/17/16 Hydralazine [Apresoline*] 50 mg PO BID 08/12/18 Metoprolol Tartrate [Lopressor*] 100 mg PO BIDWM 08/12/18 Probenecid/Colchicine [Probenecid-Colchicine Tabs] 1 tab PO DAILYPRN PRN 08/12/18 - Past Medical/Surgical History Diabetic: Yes -: Diabetes mellitus type 2, insulin-dependent -: HTN -: Chronic diastolic CHF -: Chronic renal disease, stage IV -: Hyperlipidemia -: CAD with prior RI -: Gout -: Difficulty hearing -: Cataract Sx-bilateral eyes Psychosocial/ Personal History: Patient is - Family History Family History: Reviewed- Non-Contributory - Social History Smoking Status: Former smoker Alcohol use: No CD- Drugs: No Caffeine use: Yes Review of Systems General: Fever, Chills, Malaise Eyes: Unremarkable ENT: Unremarkable Respiratory: Cough, Dry Cardiovascular: Unremarkable Gastrointestinal: Unremarkable Genitourinary: Unremarkable Musculoskeletal: Unremarkable Integumentary: Unremarkable Physical Examination - Physical Exam General: Alert, In no apparent distress, Oriented x3 HEENT: Atraumatic, Normocephalic Neck: Supple Respiratory: Diminished (Bilaterally) Cardiovascular: Normal pulses, Regular rate/rhythm, Normal S1 S2 Capillary refill: <2 Seconds Gastrointestinal: Normal bowel sounds, Soft and benign Musculoskeletal: No contractures, No erythema, No tenderness Integumentary: No significant lesion, No tenderness/swelling, Other (MM dry) Neurological: Normal speech, Normal tone - Studies Laboratory Data (last 24 hrs) 04/10/20 14:00: PT 11.5, INR 0.97 04/10/20 14:00: WBC 6.3, Hgb 14.0, Hct 42.8, Plt Count 147 L 04/10/20 14:00: Sodium 139, Potassium 4.2, BUN 69 H, Creatinine 4.71 H, Glucose 115 H, Total Bilirubin 0.2, AST 46 H, ALT 34, Alkaline Phosphatase 48, Amylase 106, Lipase 263 Microbiology Data (last 24 hrs): 04/10/20 14:01 Nasopharnyx Influenza Type A Antigen Screen - Final 04/10/20 14:01 Nasopharnyx Influenza Type B Antigen Screen - Final 04/10/20 14:01 Nasopharnyx Coronavirus COVID-19 PCR - Final Assessment and Plan - Plan Assessment Bilateral patchy infiltrate on chest [id number]-[id number] viral pneumonia Acute on chronic kidney disease stage IV Diabetes mellitus type 2 Hypertension Chronic diastolic CHF Hyperlipidemia CAD with prior RI Plan Bilateral patchy infiltrate on chest a-xhb-lcjagth viral pneumonia: Will initiate antibiotic therapy with Zithromax and Rocephin to cover for possible bacterial or secondary bacterial infection. Blood cultures obtained in the emergency department. Will continue to monitor patient's respiratory status. DVT prophylaxis with Lovenox 40 mg subcutaneous once daily. Acute on chronic kidney disease stage IV: Nephrology has been consulted on this case. Patient does appear dry. Patient will begin with lactated ringers at 100 cc/hour. Will try and patient's renal function. Appreciate further input from nephrology. Diabetes mellitus type 2: Will continue the a.c. HS Accu-Cheks and sliding scale insulin therapy. Hypertension: Have continued patient's home medications. Will continue to monitor blood pressure closely. Chronic diastolic CHF: Will continue patient's home medications. Will hold Lasix for now, appreciate further input from nephrology. Hyperlipidemia: Will continue patient's home medications. CAD with prior RI: Will continue patient's home medications. Discharge Plan: Home Plan to discharge in: 48 Hours - Advance Directives Does patient have a Living Will: No Does patient have a Durable POA for Healthcare: No - Code Status/Comfort Care Code Status Assessed: Yes (Patient is full code) Critical Care: No Time Spent Managing Pts Care (In Minutes): 55
[2020-04-10] MEDS ORDERED: ACETAMINOPHEN 500 MG TAB PO PRN (20:54)
[2020-04-10] MEDS ORDERED: ONDANSETRON 4 MG/2 ML VIAL IV PRN (20:54)
[2020-04-10] MEDS: INSULIN -REGULAR HUMAN 50 UNIT/0.5 ML ML SQ SCH (21:00)
[2020-04-10 21:02] VITALS: BMI 35.9
[2020-04-10 21:05] LABS: Urine Bacteria <20 /HPF (NONE SEEN)
[2020-04-10 21:06] LABS: Urine Coarse Granular Casts 0-5 /LPF (NONE SEEN); Urine Culture Reflex Order NOT NEEDED; Urine Mucus 2+ /HPF (NONE SEEN)
[2020-04-10 22:03] LABS: Urine Blood 2+ (NEG); Urine Glucose NEGATIVE (NEG); Urine Protein 3+ (NEG); Urine Specific Gravity 1.025 (1.005-1.030); Urine pH 5.5 (5.0-7.0)
--- NOTE | 2020-04-10 22:06 | P.CNS ---
Date of Consult: 04/10/20 Reason for Consult: KRISTEL/ CKD Requesting Physician: Jaswant Milian Chief Complaint: Bilateral pneumonia, acute on chronic renal failure History of Present Illness: 62-year-old male with medical history of [id number] diabetes mellitus, hypertension, myocardial infarction, gout, chronic kidney disease presented the emergency department with fever and 2 week history of dry cough. Patient was evaluated in the emergency department and found to have a bilateral pneumonia a significantly elevated creatinine. Patient was not hypoxic at the time of admission. COVID swab was obtained in the emergency department. ED provider wishes to admit patient for further evaluation and management of this condition. 13:58 This 70 yrs old Black Male presents to ER via Wheelchair with complaints of FEVER AND kdr AND PAINS ON THE LEFT SIDE OF THE BODY. 13:58 The patient states that he is feeling poorly for about two weeks with cough and more kdr recently, hurting all over down to his knees. He has had nausea but no vomiting. Onset: The symptoms/episode began/occurred gradually, 2 week(s) ago. Severity of symptoms: At their worst the symptoms were moderate severe just prior to arrival, in the emergency department the symptoms are worse mildly. The patient has not experienced similar symptoms in the past. The patient has not recently seen a physician. Allergies No Known Drug Allergies Allergy (Verified 04/10/20 21:02) Unknown No Known Allergies Allergy (Uncoded 04/10/20 21:02) Unknown Home medications list reviewed: Yes Home Medications: Simvastatin [Zocor*] 40 mg PO BEDTIME #30 tablet 01/30/14 Clopidogrel Bisulfate [Plavix*] 75 mg PO DAILY #30 tablet 12/17/16 Doxazosin [Cardura*] 8 mg PO BID 12/17/16 Furosemide 40 mg PO DAILY 12/17/16 Insulin Detemir [Levemir Flextouch] 20 unit SQ DAILY 12/17/16 Ramipril 10 mg PO BEDTIME 12/17/16 Hydralazine [Apresoline*] 100 mg PO BID 08/12/18 Metoprolol Tartrate [Lopressor*] 100 mg PO BIDWM 08/12/18 Probenecid/Colchicine [Probenecid-Colchicine Tabs] 1 tab PO DAILYPRN PRN 08/12/18 - Past Medical/Surgical History Diabetic: Yes -: Diabetes mellitus type 2, insulin-dependent -: HTN -: Chronic diastolic CHF -: Chronic renal disease, stage IV -: Hyperlipidemia -: CAD with prior [place] -: Gout -: Difficulty hearing -: Cataract Sx-bilateral eyes Psychosocial/ Personal History: Patient is - Social History Smoking Status: Never smoker Alcohol use: No CD- Drugs: No Caffeine use: Yes Review of Systems 10-point ROS is otherwise unremarkable General: Weakness, Malaise Respiratory: Shortness of Breath, SOB with Excertion Neurological: Weakness Physical Examination General: Alert, Cooperative, Mild distress HEENT: Atraumatic Neck: Supple Respiratory: Diminished Cardiovascular: No edema, Regular rate/rhythm Capillary refill: <2 Seconds Gastrointestinal: Soft and benign, Non-distended Musculoskeletal: No clubbing, No contractures Integumentary: No rashes, No cyanosis Neurological: Normal speech Laboratory Data (last 24 hrs) 04/10/20 14:00: PT 11.5, INR 0.97 04/10/20 14:00: WBC 6.3, Hgb 14.0, Hct 42.8, Plt Count 147 L 04/10/20 14:00: Sodium 139, Potassium 4.2, BUN 69 H, Creatinine 4.71 H, Glucose 115 H, Total Bilirubin 0.2, AST 46 H, ALT 34, Alkaline Phosphatase 48, Amylase 106, Lipase 263 Imagings Data: EXAM DESCRIPTION: RAD - Chest Single View - 04/10/2020 4:30 pm CLINICAL HISTORY: CONGESTION Chest pain. COMPARISON: Chest Single View dated 08/12/2018; Chest Single View dated 03/19/2017; Chest Single View dated 12/16/2016; CHEST SINGLE VIEW dated 10/07/2015 FINDINGS: Portable technique limits examination quality. Moderate bilateral pulmonary opacities are present, greater on the right, suspicious for interstitial pneumonia. The heart is moderately enlarged in size. No displaced fractures. EXAM DESCRIPTION: CT - Chest Abd Pelvis Wo Con - 04/10/2020 6:09 pm CLINICAL HISTORY: Chest and abdomen pain. PAIN COMPARISON: Chest Single View dated 04/10/2020 TECHNIQUE: A limited noncontrast study was performed. All CT scans are performed using dose optimization technique as appropriate and may include automated exposure control or mA/KV adjustment according to patient size. FINDINGS: Mild ground-glass opacities are present bilaterally, greatest in the lung bases.This may indicate interstitial pneumonia.No pleural or pericardial effusion.No intrathoracic adenopathy. The liver, spleen, pancreas, adrenal glands and kidneys are within normal limits for noncontrast study. No bowel obstruction, free air, free fluid or abscess. The appendix is not identified as a discrete structure, however, no secondary findings of appendicitis are identified. Mild nonspecific distention of large and small river wel loops are seen with air which may indicate ileus. No pathologic lymphadenopathy in the abdomen or pelvis. Moderate lumbosacral degenerative changes. IMPRESSION: Ground-glass opacities in both lungs greatest in the bases are seen. Consider the possibility of COVID pneumonia. Mild adynamic ileus is seen. Conclusions/Impression: A/ KRISTEL likely due to hypovolemia Acidosis CKD IV with proteinuria Rhabdomyolysis, mild MINI/ Secondary HyperPTH with hypocalcemia BL PNA concerning for COVID 19. P/ Continue current POC and Medications. Start LR. Start oral bicarb. Continue abx. COVID testing pending. Start Vitamin D and C. No NSAIDs. AM labs. Daily weight. Thank you kindly for the consultation. Case reviewed with primary team. Greater than 30min patient care.
[2020-04-10] MEDS: Ringers Lactate 1,000 ML IV SCH (23:00)
[2020-04-10] MEDS: HEPARIN 5000 UNIT/ML 1 ML VIAL SQ SCH (23:00)
[2020-04-10] MEDS: HYDRALAZINE HCL 25 MG TABLET PO SCH (23:00)
[2020-04-10] MEDS: ATORVASTATIN 20 MG TAB PO SCH (23:01)
[2020-04-10] MEDS: ASCORBIC ACID 500 MG TABLET PO SCH (23:02)
[2020-04-10] MEDS ORDERED: ATORVASTATIN 20 MG TAB ONE (23:34)
[2020-04-10] MEDS ORDERED: HEPARIN 5000 UNIT/ML 1 ML VIAL ONE (23:34)
[2020-04-10] MEDS ORDERED: HYDRALAZINE HCL 25 MG TABLET ONE (23:42)
[2020-04-10] MEDS ORDERED: ASCORBIC ACID 500 MG TABLET ONE (23:43)
[2020-04-11] MEDS ORDERED: Ringers Lactate 1,000 ML IV ONE ×2 (00:21→13:00)
[2020-04-11] MEDS ORDERED: ACETAMINOPHEN 500 MG TAB ONE (00:50)
[2020-04-11] MEDS: CEFTRIAXONE/SWI 1gm 1 GM/10 ML SYR IV SCH ×2 (02:00→14:00)
[2020-04-11] MEDS ORDERED: CEFTRIAXONE/SWI 1gm 1 GM/10 ML SYR ONE ×2 (02:59→16:01)
[2020-04-11] MEDS: Ringers Lactate 1,000 ML IV SCH ×3 (05:28→17:46)
[2020-04-11 05:35] LABS: Absolute Lymphocytes (CBC) 1.5 K/uL (0.7-4.9); Basophils % 0.7 % (0-1.3); Hematocrit 37.9 % (39.6-49.0); Lymphocytes % 23.3 % (15.3-44.8); MPV 9.5 fL (7.6-11.3)
[2020-04-11 06:40] LABS: Magnesium 2.4 mg/dL (1.8-2.4); Phosphorus 4.5 mg/dL (2.5-4.9); Potassium 3.9 mmol/L (3.5-5.1); Uric Acid 12.4 mg/dL (3.5-7.2)
[2020-04-11] MEDS: INSULIN -REGULAR HUMAN 50 UNIT/0.5 ML ML SQ SCH ×4 (07:30→21:00)
[2020-04-11] MEDS: SODIUM BICARB 325 MG TAB PO SCH ×3 (08:00→17:00)
[2020-04-11] MEDS ORDERED: HEPARIN 5000 UNIT/ML 1 ML VIAL ONE (08:56)
[2020-04-11] MEDS ORDERED: CLOPIDOGREL 75 MG TABLET ONE (08:56)
[2020-04-11] MEDS ORDERED: dexAMETHasone 10 MG/ML VIAL ONE (08:57)
[2020-04-11] MEDS ORDERED: THIAMINE HCL 100 MG TABLET ONE (08:57)
[2020-04-11] MEDS ORDERED: FOLIC ACID 1 MG TABLET ONE (08:57)
[2020-04-11] MEDS: dexAMETHasone 10 MG/ML VIAL IV SCH (08:59)
[2020-04-11] MEDS: HEPARIN 5000 UNIT/ML 1 ML VIAL SQ SCH ×2 (09:00→20:59)
[2020-04-11] MEDS: VITAMIN D 5,000 UNIT CAP PO SCH (09:00)
[2020-04-11] MEDS: CALCITROL 0.25 MCG CAP PO SCH (09:00)
[2020-04-11] MEDS: FOLIC ACID 1 MG TABLET PO SCH (09:00)
[2020-04-11] MEDS: HYDRALAZINE HCL 25 MG TABLET PO SCH ×2 (09:00→20:59)
[2020-04-11] MEDS: AZITHROMYCIN 250 MG TAB PO SCH (09:00)
[2020-04-11] MEDS: DOCUSATE NA 100 MG CAP PO SCH ×2 (09:00→20:58)
[2020-04-11] MEDS: CLOPIDOGREL 75 MG TABLET PO SCH (09:00)
[2020-04-11] MEDS: THIAMINE HCL 100 MG TABLET PO SCH (09:00)
[2020-04-11] MEDS ORDERED: AZITHROMYCIN 250 MG TAB ONE (10:01)
[2020-04-11] MEDS: ASCORBIC ACID 500 MG TABLET PO SCH ×2 (10:15→22:31)
--- NOTE | 2020-04-11 17:46 | P.PN ---
Subjective Date of Service: 04/11/20 Chief Complaint: Bilateral pneumonia, acute on chronic renal failure Subjective: Improving (Patient appears improved.) Physical Examination - Vital Signs Temperature: 98.0 F Blood Pressure: 162/96 Pulse: 80 Respirations: 20 Pulse Ox (%): 98 - Physical Exam General: In no apparent distress HEENT: Atraumatic Neck: Supple Respiratory: Other (No distress noted. Patient on nasal cannula.) Cardiovascular: Normal pulses, Regular rate/rhythm - Studies Laboratory Data (last 24 hrs) 04/10/20 13:42: PT Cancelled, INR Cancelled, APTT Cancelled 04/10/20 13:42: WBC Cancelled, Hgb Cancelled, Hct Cancelled, Plt Count Cancelled 04/10/20 13:42: Sodium Cancelled, Potassium Cancelled, BUN Cancelled, Creatinine Cancelled, Glucose Cancelled, Total Bilirubin Cancelled, AST Cancelled, ALT Cancelled, Alkaline Phosphatase Cancelled, Amylase Cancelled, Lipase Cancelled Microbiology Data (last 24 hrs): 04/10/20 14:01 Nasopharnyx Influenza Type A Antigen Screen - Final 04/10/20 14:01 Nasopharnyx Influenza Type B Antigen Screen - Final 04/10/20 14:01 Nasopharnyx Coronavirus COVID-19 PCR - Final Medications List Reviewed: Yes Assessment & Plan Discharge Plan: Home Plan to discharge in: 48 Hours Physician Review Additional Text: Assessment Bilateral patchy infiltrate on chest [id number]-uwsmqwa viral pneumonia need to rule out COVID Acute on chronic kidney disease stage IV Rhabdomyolysis Diabetes mellitus type 2 Hypertension Chronic diastolic CHF Hyperlipidemia CAD with prior [place] Plan Bilateral patchy infiltrate on chest i-jgg-nezdncy viral pneumonia: Continue antibiotic coverage. Continue DVT prophylaxis. Await recommendations by pulmonology. Await COVID testing. Patient remains on oxygen. Continue wean off. Anticipate improvement over the next 48 hr. Acute on chronic kidney disease stage IV: Nephrology to adjust IV fluids. Rhabdomyolysis: Continue IV fluids. Await recommendations by nephrology Diabetes mellitus type 2: Continue sliding scale. Will monitor closely. Hypertension: Blood pressure still elevated. Will increase metoprolol. Will monitor and adjust accordingly Chronic diastolic CHF: Hold Lasix at this time. Will monitor closely. Hyperlipidemia: Will continue patient's home medications. CAD with prior [place]: Will continue patient's home medications. Time Spent Managing Pts Care (In Minutes): 55
[2020-04-11] MEDS ORDERED: METOPROLOL TAR 25 MG TAB PO SCH (18:00)
[2020-04-11] MEDS: METOPROLOL TAR 50 MG TAB PO SCH (18:00)
[2020-04-11] MEDS ORDERED: METOPROLOL TAR 50 MG TAB ONE (18:24)
--- NOTE | 2020-04-11 19:36 | P.PN ---
Date of Service: 04/11/20 Vital Signs Temp Pulse Resp BP Pulse Ox 98.0 F 85 20 181/96 H 98 04/11/20 17:46 04/11/20 18:00 04/11/20 17:46 04/11/20 18:00 04/11/20 17:46 Medications Acetaminophen (Tylenol -Extra Strength) 500 mg PO Q4HP PRN PRN Reason: TEMP > 100' F Stop: 05/10/20 20:55 Last Admin: 04/11/20 00:42 Dose: 500 mg Documented by: Ascorbic Acid (Vitamin C) 500 mg PO Q12H [facility] Stop: 05/10/20 22:16 Last Admin: 04/11/20 10:15 Dose: 500 mg Documented by: Atorvastatin Calcium (Lipitor) 20 mg PO BEDTIME [facility]EMI Stop: 05/10/20 21:01 Last Admin: 04/10/20 23:01 Dose: 20 mg Documented by: Azithromycin (Zithromax -Tab) 500 mg PO DAILY [facility]EMI Stop: 05/11/20 09:01 Last Admin: 04/11/20 09:00 Dose: 500 mg Documented by: Calcitriol (Rocaltrol) 0.5 mcg PO DAILY YEMI Stop: 05/11/20 09:01 Last Admin: 04/11/20 09:00 Dose: 0.5 mcg Documented by: Cholecalciferol (Vitamin D 5,000 Iu Cap) 5,000 unit PO DAILY YEMI Stop: 05/11/20 09:01 Last Admin: 04/11/20 09:00 Dose: 5,000 unit Documented by: Clopidogrel Bisulfate (Plavix) 75 mg PO DAILY [facility]I Stop: 05/11/20 09:01 Last Admin: 04/11/20 09:00 Dose: 75 mg Documented by: Dexamethasone (Decadron) 6 mg IV DAILY [facility]EMI Stop: 05/11/20 09:01 Last Admin: 04/11/20 08:59 Dose: 6 mg Documented by: Docusate Sodium (Colace Cap) 100 mg PO BID [facility]I Stop: 05/11/20 09:01 Last Admin: 04/11/20 09:00 Dose: 100 mg Documented by: Folic Acid (Folic Acid) 1 mg PO DAILY YEMI Stop: 05/11/20 09:01 Last Admin: 04/11/20 09:00 Dose: 1 mg Documented by: Heparin Sodium (Porcine) (Heparin 5,000 Units/Ml) 5,000 unit SQ Q12HR [facility] Stop: 05/10/20 21:01 Last Admin: 04/11/20 09:00 Dose: 5,000 unit Documented by: Hydralazine HCl (Apresoline) 10 mg IV Q6HP PRN PRN Reason: Titrate to SBP (MUST DEFINE) Stop: 05/10/20 20:55 Hydralazine HCl (Apresoline) 100 mg PO BID [facility] Stop: 05/10/20 21:01 Last Admin: 04/11/20 09:00 Dose: 100 mg Documented by: Ceftriaxone Sodium/Sodium Chloride (Rocephin 1 Gm/10 Ml Swi Ivp) 1 gm in 10 mls @ 20 mls/hr IV Q12H [facility]; Protocol Stop: 05/11/20 02:01 Last Admin: 04/11/20 14:00 Dose: 10 mls Documented by: Lactated Ringer's (Lactated Ringers) 1,000 mls @ 75 mls/hr IV .[id number] [facility] Stop: 05/11/20 17:47 Last Admin: 04/11/20 17:46 Dose: 1,000 mls Documented by: Insulin Human Regular (Novolin -R) 0 unit SQ ACHS [facility]; Protocol Stop: 05/10/20 21:01 Last Admin: 04/11/20 16:30 Dose: Not Given Documented by: Metoprolol Tartrate (Lopressor) 50 mg PO BID 6AM 6PM [facility] Stop: 05/11/20 18:01 Last Admin: 04/11/20 18:00 Dose: 50 mg Documented by: Ondansetron HCl (Zofran) 4 mg IV Q6HP PRN PRN Reason: NAUSEA / VOMITING Stop: 05/10/20 20:55 Sodium Bicarbonate (Sodium Bicarb 325 Mg) 650 mg PO TIDWM [facility] Stop: 05/11/20 08:01 Last Admin: 04/11/20 17:00 Dose: 650 mg Documented by: Sodium Chloride (Normal Saline Flush) 10 ml IV BID [facility] Stop: 05/10/20 21:01 Last Admin: 04/11/20 09:00 Dose: 10 ml Documented by: Thiamine HCl (Vitamin B-1) 100 mg PO DAILY [facility] Stop: 05/11/20 09:01 Last Admin: 04/11/20 09:00 Dose: 100 mg Documented by: Lab Results (last 24 hrs) 04/10/20 13:42: Urine RBC Cancelled, Urine WBC Cancelled, Ur Squamous Epith Cells Cancelled, Ur Urothelial Cells Cancelled, Calcium Oxalate Crystal Cancelled, Uric Acid Crystals Cancelled, Triple Phos Crystals Cancelled, Other Crystals Cancelled, Amorphous Sediment Cancelled, Glitter Cells Cancelled, Urine Bacteria Cancelled, Hyaline Casts Cancelled, Fine Granular Casts Cancelled, Coarse Granular Casts Cancelled, Waxy Casts Cancelled, RBC Casts Cancelled, WBC Casts Cancelled, Urine Mucus Cancelled, Urine Other Cancelled, Urine Trichomonas Cancelled, Urine Yeast Cancelled, Ur Yeast w Hyphae Cancelled, Urine Yeast (Budding) Cancelled, Urine Sperm Cancelled, Urine Culture Reflexed Cancelled, Urine Total Volume Cancelled 04/10/20 13:42: PT Cancelled, INR Cancelled, APTT Cancelled 04/10/20 13:42: Procalcitonin Cancelled 04/10/20 13:42: Lactic Acid Cancelled 04/10/20 13:42: WBC Cancelled, RBC Cancelled, Hgb Cancelled, Hct Cancelled, MCV Cancelled, MCH Cancelled, MCHC Cancelled, RDW Cancelled, Plt Count Cancelled, MPV Cancelled, Neutrophils % Cancelled, Lymphocytes % Cancelled, Monocytes % Cancelled, Eosinophils % Cancelled, Basophils % Cancelled, Absolute Neutrophils Cancelled, Absolute Lymphocytes Cancelled, Absolute Monocytes Cancelled, Absolute Eosinophils Cancelled, Absolute Basophils Cancelled, Diff Path Review Cancelled 04/10/20 13:42: Sodium Cancelled, Potassium Cancelled, Chloride Cancelled, Carbon Dioxide Cancelled, BUN Cancelled, Creatinine Cancelled, Estimated GFR Cancelled, Glucose Cancelled, Calcium Cancelled, Total Bilirubin Cancelled, Direct Bilirubin Cancelled, AST Cancelled, ALT Cancelled, Alkaline Phosphatase Cancelled, Creatine Kinase Cancelled, CK-MB (CK-2) Cancelled, Rapid Troponin I Cancelled, Serum Total Protein Cancelled, Albumin Cancelled, Globulin Cancelled, Albumin/Globulin Ratio Cancelled, Amylase Cancelled, Lipase Cancelled Microbiology Results 04/10/20 14:00 Blood - Blood Aerobic Blood Culture - Preliminary No growth in 24 hours. 04/10/20 14:00 Blood - Blood Anaerobic Blood Culture - Preliminary No growth in 24 hours. 04/10/20 14:00 Blood - Blood Aerobic Blood Culture - Preliminary No growth in 24 hours. 04/10/20 14:00 Blood - Blood Anaerobic Blood Culture - Preliminary No growth in 24 hours. 04/10/20 14:01 Nasopharnyx Influenza Type A Antigen Screen - Final 04/10/20 14:01 Nasopharnyx Influenza Type B Antigen Screen - Final 04/10/20 14:01 Nasopharnyx Coronavirus COVID-19 PCR - Final Assessment/ Plan: Nephrology Persistent waxing and waning dyspnea with cough. No chest pain. Fatigue and weakness. No acute events overnight. Still waiting for transfer to the floor for the ER. Vitals, medications, blood work and imaging reviewed in the chart. General: Alert, Cooperative, Mild distress HEENT: Atraumatic Neck: Supple Respiratory: Diminished Cardiovascular: No edema, Regular rate/rhythm Capillary refill: <2 Seconds Gastrointestinal: Soft and benign, Non-distended Musculoskeletal: No clubbing, No contractures Integumentary: No rashes, No cyanosis Neurological: Normal speech Laboratory Data (last 24 hrs) 04/10/20 14:00: PT 11.5, INR 0.97 04/10/20 14:00: WBC 6.3, Hgb 14.0, Hct 42.8, Plt Count 147 L 04/10/20 14:00: Sodium 139, Potassium 4.2, BUN 69 H, Creatinine 4.71 H, Glucose 115 H, Total Bilirubin 0.2, AST 46 H, ALT 34, Alkaline Phosphatase 48, Amylase 106, Lipase 263 Imagings Data: EXAM DESCRIPTION: RAD - Chest Single View - 04/10/2020 4:30 pm CLINICAL HISTORY: CONGESTION Chest pain. COMPARISON: Chest Single View dated 08/12/2018; Chest Single View dated 03/19/2017; Chest Single View dated 12/16/2016; CHEST SINGLE VIEW dated 10/07/2015 FINDINGS: Portable technique limits examination quality. Moderate bilateral pulmonary opacities are present, greater on the right, suspicious for interstitial pneumonia. The heart is moderately enlarged in size. No displaced fractures. EXAM DESCRIPTION: CT - Chest Abd Pelvis Wo Con - 04/10/2020 6:09 pm CLINICAL HISTORY: Chest and abdomen pain. PAIN COMPARISON: Chest Single View dated 04/10/2020 TECHNIQUE: A limited noncontrast study was performed. All CT scans are performed using dose optimization technique as appropriate and may include automated exposure control or mA/KV adjustment according to patient size. FINDINGS: Mild ground-glass opacities are present bilaterally, greatest in the lung bases.This may indicate interstitial pneumonia.No pleural or pericardial effusion.No intrathoracic adenopathy. The liver, spleen, pancreas, adrenal glands and kidneys are within normal limits for noncontrast study. No bowel obstruction, free air, free fluid or abscess. The appendix is not identified as a discrete structure, however, no secondary findings of appendicitis are identified. Mild nonspecific distention of large and small bowel loops are seen with air which may indicate ileus. No pathologic lymphadeno tuyet in the abdomen or pelvis. Moderate lumbosacral degenerative changes. IMPRESSION: Ground-glass opacities in both lungs greatest in the bases are seen. Consider the possibility of COVID pneumonia. Mild adynamic ileus is seen. Conclusions/Impression: A/ KRISTEL likely due to hypovolemia Acidosis CKD IV with proteinuria Rhabdomyolysis, mild MINI/ Secondary HyperPTH with hypocalcemia BL PNA positive for COVID 19. P/ Continue current POC and Medications. Gentle IVF with LR. Continue oral bicarb. Continue abx. Continue metoprolol. Restart low dose doxazosin. No NSAIDs. AM labs. Daily weight. Greater than 30min patient care.
[2020-04-11] MEDS: ATORVASTATIN 20 MG TAB PO SCH (20:58)
[2020-04-11] MEDS: DOXAZOSIN 2 MG TAB PO SCH (22:29)
[2020-04-12] MEDS: HYDRALAZINE HCL 20 MG/ML VIAL IV PRN (01:01)
[2020-04-12] MEDS: Ringers Lactate 1,000 ML IV SCH ×3 (01:02→15:27)
[2020-04-12] MEDS: CEFTRIAXONE/SWI 1gm 1 GM/10 ML SYR IV SCH ×2 (02:01→13:06)
[2020-04-12] MEDS: METOPROLOL TAR 50 MG TAB PO SCH ×2 (05:45→16:28)
[2020-04-12 06:58] LABS: Absolute Lymphocytes (CBC) 1.4 K/uL (0.7-4.9); Basophils % 0.1 % (0-1.3); Hematocrit 37.5 % (39.6-49.0); Lymphocytes % 26.1 % (15.3-44.8); MPV 9.7 fL (7.6-11.3)
[2020-04-12 07:01] LABS: Urine Appearance CLEAR; Urine Bilirubin NEGATIVE (NEG); Urine Blood TRACE (NEG); Urine Color YELLOW; Urine Glucose NEGATIVE (NEG); Urine Protein 3+ (NEG); Urine Specific Gravity 1.015 (1.005-1.030); Urine Urobilinogen 0.2 mg/dL (0.2-1.0); Urine pH 5.5 (5.0-7.0)
[2020-04-12 07:08] LABS: Magnesium 2.4 mg/dL (1.8-2.4); Potassium 4.6 mmol/L (3.5-5.1)
[2020-04-12] MEDS: INSULIN -REGULAR HUMAN 50 UNIT/0.5 ML ML SQ SCH ×4 (07:30→21:00)
[2020-04-12 07:34] LABS: Urine Amorphous Sediment 1+ /HPF (NONE SEEN); Urine Bacteria NONE SEEN /HPF (NONE SEEN); Urine Culture Reflex Order NOT NEEDED; Urine RBC <5 /HPF (NONE SEEN)
[2020-04-12] MEDS: CALCITROL 0.25 MCG CAP PO SCH (07:49)
[2020-04-12] MEDS: SODIUM BICARB 325 MG TAB PO SCH ×3 (07:49→16:07)
[2020-04-12] MEDS: VITAMIN D 5,000 UNIT CAP PO SCH (07:49)
[2020-04-12] MEDS: THIAMINE HCL 100 MG TABLET PO SCH (07:49)
[2020-04-12] MEDS: CLOPIDOGREL 75 MG TABLET PO SCH (07:50)
[2020-04-12] MEDS: AZITHROMYCIN 250 MG TAB PO SCH (07:50)
[2020-04-12] MEDS: DOCUSATE NA 100 MG CAP PO SCH ×2 (07:50→22:20)
[2020-04-12] MEDS: DOXAZOSIN 2 MG TAB PO SCH ×2 (07:50→22:19)
[2020-04-12] MEDS: HYDRALAZINE HCL 25 MG TABLET PO SCH ×2 (07:50→22:19)
[2020-04-12] MEDS: FOLIC ACID 1 MG TABLET PO SCH (07:50)
[2020-04-12] MEDS: dexAMETHasone 10 MG/ML VIAL IV SCH (07:51)
[2020-04-12] MEDS: HEPARIN 5000 UNIT/ML 1 ML VIAL SQ SCH ×2 (07:51→22:19)
[2020-04-12] MEDS: ASCORBIC ACID 500 MG TABLET PO SCH ×2 (09:37→22:19)
--- NOTE | 2020-04-12 16:05 | PN ---
Date of Progress Note: 04/12/2020 Subjective: Patient was seen and examined via telemedicine with the help of iPad. The nurse was wedny meyers to help me do a physical exam. The patient was seen and examined. He states that he is doing well . No issues noted. No pain reported. No trouble breathing. Objective: Vital Signs: Have been reviewed and are stable overnight. He remains on 2 L of nasal ca nnula oxygen. General: He appears in no acute distress. HEENT: Shows atraumatic head. Respiratory: Auscultation of lungs were clear. Extremities: Showed no evidence of edema. Abdomen: Soft and nontender. Laboratory Data: At this time showing creatinine improving to 4.1, sodium of 141, potassium of 4.6, chloride of 112. CBC showing hemoglobin of 12.4, hematocrit of 37.5, and platelet count of 138. Current Medications: Include Tylenol, vitamin C, atorvastatin, azithromycin, calcitriol, vitamin D3, Plavix, dexamethasone 6 mg IV daily, doxazosin 2 mg b.i.d., folic acid, heparin for DVT prophylaxis, hydralazine 100 mg p.o. b.i.d., lactated Ringer's at 75 mL an hour, metoprolol 50 mg b.i.d., sodium bicarbonate 650 mg t.i.d., Rocephin, and thiamine. Impression: 1.Acute on chronic renal insufficiency secondary to acute tubular necrosis. Currently with improvin g renal function. Continue IV fluids as patient seems volume depleted at this time. 2.Coronavirus disease positive pneumonia. Patient is receiving Decadron as well as azithromycin eusebio ng with Rocephin at this time. 3.Hypertension, currently stable. 4.Rhabdomyolysis. We will continue the IV fluids. 5.Chronic diastolic heart failure. Lasix is on hold at this time and volume status seems stable. W e will go ahead and decrease the rate of IV fluids and monitor him closely. 6.Coronary artery disease, currently stable. Plan: Overall, patient is doing much better. His renal function is stabilizing. We will continue I V fluids at a lower rate for 1 more day and monitor his volume status closely. All other medications were reviewed and also discussed the case with Dr. Milian as well. VV/MODL Voice ID: [id number] Report ID: [id number]
--- NOTE | 2020-04-12 17:42 | P.PN ---
Subjective Date of Service: 04/12/20 Chief Complaint: Bilateral pneumonia, acute on chronic renal failure Subjective: Improving Physical Examination - Vital Signs Temperature: 99.1 F Blood Pressure: 189/74 Pulse: 69 Respirations: 20 Pulse Ox (%): 98 - Physical Exam General: Alert, Cooperative HEENT: Atraumatic Neck: Supple Respiratory: Clear to auscultation bilaterally Cardiovascular: Normal pulses, Regular rate/rhythm Gastrointestinal: Normal bowel sounds, Soft and benign, Non-distended Neurological: Normal speech, Normal strength at 5/5 x4 extr, Normal tone Other Physical/Emotional Findings: Patient with difficulty hearing - Studies Medications List Reviewed: Yes Assessment & Plan Discharge Plan: Home Plan to discharge in: 48 Hours Physician Review Additional Text: Assessment Bilateral viral pneumonia with hypoxemia and positive COVID Acute on chronic kidney disease stage IV Rhabdomyolysis Diabetes mellitus type 2 Hypertension Chronic diastolic CHF Hyperlipidemia CAD with prior ID Plan Bilateral viral pneumonia with hypoxemia and positive COVID: Continue antibiotic coverage. Continue DVT prophylaxis. Continue IV Decadron. Patient is positive for COVID. Will continue IV hydration due to acute on chronic kidney failure and rhabdomyolysis. Will monitor closely. Will try to wean off oxygen. Patient may require home oxygen at discharge. Anticipate improvement over the next 48 hr. Acute on chronic kidney disease stage IV: Case discussed with nephrology. Continue IV fluids. Will monitor closely. Rhabdomyolysis: Continue IV fluids. Will monitor CK. Diabetes mellitus type 2: Continue sliding scale. Will monitor closely. Hypertension: Continue to adjust medication for better control. Chronic diastolic CHF: Hold Lasix at this time due to acute on chronic renal disease and rhabdomyolysis. Will monitor closely. Hyperlipidemia: Will continue patient's home medications. CAD with prior ID: Will continue patient's home medications. Time Spent Managing Pts Care (In Minutes): 55
[2020-04-12] MEDS: ATORVASTATIN 20 MG TAB PO SCH (22:19)
[2020-04-13] MEDS: CEFTRIAXONE/SWI 1gm 1 GM/10 ML SYR IV SCH ×2 (01:01→13:06)
[2020-04-13] MEDS: Ringers Lactate 1,000 ML IV SCH ×2 (04:53→11:27)
[2020-04-13] MEDS: METOPROLOL TAR 50 MG TAB PO SCH ×2 (05:04→17:38)
[2020-04-13] MEDS: INSULIN -REGULAR HUMAN 50 UNIT/0.5 ML ML SQ SCH ×4 (07:30→21:00)
[2020-04-13] MEDS: DOXAZOSIN 2 MG TAB PO SCH ×2 (08:20→20:18)
[2020-04-13] MEDS: SODIUM BICARB 325 MG TAB PO SCH ×3 (08:20→16:24)
[2020-04-13] MEDS: VITAMIN D 5,000 UNIT CAP PO SCH (08:21)
[2020-04-13] MEDS: dexAMETHasone 10 MG/ML VIAL IV SCH (08:21)
[2020-04-13] MEDS: AZITHROMYCIN 250 MG TAB PO SCH (08:21)
[2020-04-13] MEDS: CALCITROL 0.25 MCG CAP PO SCH (08:21)
[2020-04-13] MEDS: CLOPIDOGREL 75 MG TABLET PO SCH (08:21)
[2020-04-13] MEDS: THIAMINE HCL 100 MG TABLET PO SCH (08:22)
[2020-04-13] MEDS: HYDRALAZINE HCL 25 MG TABLET PO SCH ×2 (08:22→20:18)
[2020-04-13] MEDS: FOLIC ACID 1 MG TABLET PO SCH (08:22)
[2020-04-13] MEDS: HEPARIN 5000 UNIT/ML 1 ML VIAL SQ SCH ×2 (08:22→20:19)
[2020-04-13] MEDS: DOCUSATE NA 100 MG CAP PO SCH ×2 (08:22→20:19)
[2020-04-13] MEDS: ASCORBIC ACID 500 MG TABLET PO SCH ×2 (09:24→20:18)
[2020-04-13 10:52] LABS: Magnesium 2.3 mg/dL (1.8-2.4); Potassium 4.3 mmol/L (3.5-5.1)
--- NOTE | 2020-04-13 13:42 | PN ---
Date of Progress Note: 04/13/2020 Subjective: Patient was seen and examined via telemedicine through the iPad. Patient denies any com plaints. He had his breakfast this morning. His O2 saturations have been stable. He does seem a li ttle bit more short of breath. Physical Examination: HEENT: Reveals atraumatic head. Lower Extremities: Show no evidence of edema. Laboratory Data: At this time are showing creatinine improving to 3.8, acidosis with bicarb of 16. CBC is showing stable hemoglobin, hematocrit, and platelet count, and WBC count is stable as well. Current Medications: Dexamethasone 6 mg IV daily, vitamin D, ascorbic acid, amlodipine, atorvastatin , azithromycin, doxazosin, hydralazine p.r.n., heparin 5000 units subcu every 12 hours, Lopressor 50 mg b.i.d., Rocephin 1 g every 12 hours, and thiamine. Impression: 1.Acute renal failure secondary to coronavirus disease pneumonia. Patient's renal function is impro ving with IV fluids. We will go ahead and stop the IV fluids to prevent further volume overload. 2.Coronavirus disease 2019 pneumonia. Remains on dexamethasone, Rocephin, and azithromycin. Patien t continues to improve. 3.Hyperglycemia secondary to dexamethasone use. 4.Acidosis related to renal failure, currently on sodium bicarbonate. 5.Anemia secondary to chronic disease, currently stable. Plan: Patient's renal function is improving at this time. We will continue to monitor closely. We will discontinue IV fluids and will follow up on a.m. labs. BECKY/YVROSE Voice ID: [id number] Report ID: [id number]
--- NOTE | 2020-04-13 14:45 | P.PN ---
Subjective Date of Service: 04/13/20 Chief Complaint: Bilateral pneumonia, acute on chronic renal failure Subjective: Improving, Doing well Physical Examination - Vital Signs Temperature: 98.3 F Blood Pressure: 162/64 Pulse: 67 Respirations: 18 Pulse Ox (%): 91 - Physical Exam General: Alert, Cooperative HEENT: Atraumatic Neck: Supple Respiratory: Clear to auscultation bilaterally Cardiovascular: Normal pulses Neurological: Normal speech, Normal strength at 5/5 x4 extr, Normal tone, Normal affect Other Physical/Emotional Findings: Patient with difficulty hearing - Studies Medications List Reviewed: Yes Assessment & Plan Discharge Plan: Home Plan to discharge in: 24 Hours Physician Review Additional Text: Assessment Bilateral viral pneumonia with hypoxemia and positive COVID Acute on chronic kidney disease stage IV Rhabdomyolysis Diabetes mellitus type 2 Hypertension Chronic diastolic CHF Hyperlipidemia CAD with prior NH Plan Bilateral viral pneumonia with hypoxemia and positive COVID: Continue antibiotic coverage. Continue DVT prophylaxis. Continue IV Decadron. Patient is positive for COVID. Patient continues to improve. IV fluids discontinued by nephrology. Continue with nephrology recommendation. Continue to wean off oxygen. Anticipate improvement over the next 24 hr. If stable will plan for discharge tomorrow. Patient may require home oxygen at discharge. Acute on chronic kidney disease stage IV: Case discussed with nephrology. Nephrology plans to discontinue fluids. Recheck lab tomorrow. If stable will plan for discharge. Rhabdomyolysis: IV fluids discontinued Diabetes mellitus type 2: Continue sliding scale. Will monitor closely. Hypertension: Continue to adjust medication for better control. Chronic diastolic CHF: Hold Lasix at this time due to acute on chronic renal disease and rhabdomyolysis. Will monitor closely. Hyperlipidemia: Will continue patient's home medications. CAD with prior NH: Will continue patient's home medications. Time Spent Managing Pts Care (In Minutes): 55
[2020-04-13] MEDS: ATORVASTATIN 20 MG TAB PO SCH (20:19)
[2020-04-14] MEDS: HYDRALAZINE HCL 20 MG/ML VIAL IV PRN (00:23)
[2020-04-14] MEDS: CEFTRIAXONE/SWI 1gm 1 GM/10 ML SYR IV SCH ×2 (01:30→13:30)
[2020-04-14] MEDS ORDERED: MORPHINE 2 MG/ML SYR IV ONE (01:30)
[2020-04-14] MEDS: METOPROLOL TAR 50 MG TAB PO SCH ×2 (05:14→17:32)
[2020-04-14] MEDS: INSULIN -REGULAR HUMAN 50 UNIT/0.5 ML ML SQ SCH ×4 (07:30→20:59)
[2020-04-14] MEDS: THIAMINE HCL 100 MG TABLET PO SCH (09:59)
[2020-04-14] MEDS: FOLIC ACID 1 MG TABLET PO SCH (10:00)
[2020-04-14] MEDS: DOXAZOSIN 2 MG TAB PO SCH ×2 (10:00→20:58)
[2020-04-14] MEDS: CALCITROL 0.25 MCG CAP PO SCH (10:00)
[2020-04-14] MEDS: CLOPIDOGREL 75 MG TABLET PO SCH (10:00)
[2020-04-14] MEDS: AZITHROMYCIN 250 MG TAB PO SCH (10:01)
[2020-04-14] MEDS: AMLODIPINE 5 MG TAB PO SCH (10:01)
--- NOTE | 2020-04-14 10:01 | RAD REPORT ---
EXAM DESCRIPTION: RAD - Abdomen 1 View (KUB) - 04/14/2020 2:37 am CLINICAL HISTORY: Abdominal pain COMPARISON: None. TECHNIQUE: AP abdomen. FINDINGS: There is diffuse air throughout the bowel. Mild small bowel dilatation. No pathologic calc ifications. There is no free air. There is mild lumbar and lower thoracic degenerative change. Intact bony pelvis. Unremarkable soft tissues. Heart is enlarged. Left lower lobe atelectasis. IMPRESSION: 1. Mild small bowel ileus/enteritis. Electronically signed by: Trinidad Marley DO 04/14/2020 2:47 AM CDT Due to temporary technical issues with the PACS/Fluency reporting system, reports are being signed by the in house radiologist without review as a courtesy to ensure prompt reporting. The interpreting r adiologist is fully responsible for the content of the report.
[2020-04-14] MEDS: SODIUM BICARB 325 MG TAB PO SCH ×3 (10:02→17:32)
[2020-04-14] MEDS: DOCUSATE NA 100 MG CAP PO SCH ×2 (10:02→20:59)
[2020-04-14] MEDS: VITAMIN D 5,000 UNIT CAP PO SCH (10:02)
[2020-04-14] MEDS: HYDRALAZINE HCL 25 MG TABLET PO SCH ×2 (10:03→20:59)
[2020-04-14] MEDS: HEPARIN 5000 UNIT/ML 1 ML VIAL SQ SCH ×2 (10:05→20:58)
[2020-04-14] MEDS: dexAMETHasone 10 MG/ML VIAL IV SCH (10:05)
[2020-04-14] MEDS: ASCORBIC ACID 500 MG TABLET PO SCH ×2 (10:06→22:43)
--- NOTE | 2020-04-14 18:08 | P.PN ---
Subjective Date of Service: 04/14/20 Chief Complaint: Bilateral pneumonia, acute on chronic renal failure Subjective: Other (slight improvement) Physical Examination - Vital Signs Temperature: 98.0 F Blood Pressure: 156/79 Pulse: 72 Respirations: 18 Pulse Ox (%): 92 - Physical Exam General: Alert, Cooperative HEENT: Atraumatic Neck: Supple Respiratory: Other (better breathing.) Cardiovascular: Normal pulses Neurological: Normal speech, Normal strength at 5/5 x4 extr, Normal tone, Normal affect Other Physical/Emotional Findings: Patient with difficulty hearing - Studies Medications List Reviewed: Yes Assessment & Plan Discharge Plan: Home Plan to discharge in: 24 Hours Physician Review Additional Text: Assessment Bilateral viral pneumonia with hypoxemia and positive COVID Acute on chronic kidney disease stage IV Rhabdomyolysis Diabetes mellitus type 2 Hypertension Chronic diastolic CHF Hyperlipidemia CAD with prior CT Plan Bilateral viral pneumonia with hypoxemia and positive COVID: Patient continues to improve. Still requiring oxygen. Anticipate improvement over the next 24 hr. Possible discharge home with possible oxygen. Will discuss further with nephrology and pulmonology. Acute on chronic kidney disease stage IV: Case discussed with nephrology. Nephrology plans to discontinue fluids. Recheck lab tomorrow. If stable will plan for discharge. Rhabdomyolysis: IV fluids discontinued Diabetes mellitus type 2: Continue sliding scale. Will monitor closely. Hypertension: Continue to adjust medication for better control. Chronic diastolic CHF: Hold Lasix at this time due to acute on chronic renal disease and rhabdomyolysis. Will monitor closely. Hyperlipidemia: Will continue patient's home medications. CAD with prior CT: Will continue patient's home medications. Time Spent Managing Pts Care (In Minutes): 55
[2020-04-14] MEDS: ATORVASTATIN 20 MG TAB PO SCH (20:58)
[2020-04-15] MEDS: CEFTRIAXONE/SWI 1gm 1 GM/10 ML SYR IV SCH ×2 (02:02→14:01)
[2020-04-15] MEDS: METOPROLOL TAR 50 MG TAB PO SCH (05:05)
[2020-04-15] MEDS: INSULIN -REGULAR HUMAN 50 UNIT/0.5 ML ML SQ SCH ×2 (07:30→11:30)
[2020-04-15] MEDS: SODIUM BICARB 325 MG TAB PO SCH ×2 (08:22→12:04)
[2020-04-15] MEDS: CALCITROL 0.25 MCG CAP PO SCH (08:23)
[2020-04-15] MEDS: CLOPIDOGREL 75 MG TABLET PO SCH (08:23)
[2020-04-15] MEDS: dexAMETHasone 10 MG/ML VIAL IV SCH (08:23)
[2020-04-15] MEDS: HYDRALAZINE HCL 25 MG TABLET PO SCH (08:24)
[2020-04-15] MEDS: AMLODIPINE 5 MG TAB PO SCH (08:24)
[2020-04-15] MEDS: AZITHROMYCIN 250 MG TAB PO SCH (08:24)
[2020-04-15] MEDS: DOXAZOSIN 2 MG TAB PO SCH (08:25)
[2020-04-15] MEDS: THIAMINE HCL 100 MG TABLET PO SCH (08:25)
[2020-04-15] MEDS: ASCORBIC ACID 500 MG TABLET PO SCH (08:25)
[2020-04-15] MEDS: VITAMIN D 5,000 UNIT CAP PO SCH (08:25)
[2020-04-15] MEDS: FOLIC ACID 1 MG TABLET PO SCH (08:25)
[2020-04-15] MEDS: DOCUSATE NA 100 MG CAP PO SCH (08:25)
[2020-04-15] MEDS: HEPARIN 5000 UNIT/ML 1 ML VIAL SQ SCH (08:26)
[2020-04-15 12:08] VITALS: O2SAT 94
--- NOTE | 2020-04-15 12:40 | P.DS ---
Admission Date: 04/10/20 Discharge Date: 04/15/20 Primary Care Provider: Dr. Quesada Disposition: DC HOME/HOME HEALTH CARE Discharge Condition: GOOD Reason for Admission: Bilateral pneumonia, acute on chronic renal failure Consultations: Nephrology-Dr. Quesada Pulmonary-Dr. Almazan Procedures: Ct scan: FINDINGS: Mild ground-glass opacities are present bilaterally, greatest in the lung bases.This may indicate interstitial pneumonia.No pleural or pericardial effusion.No intrathoracic adenopathy. The liver, spleen, pancreas, adrenal glands and kidneys are within normal limits for noncontrast study. No bowel obstruction, free air, free fluid or abscess. The appendix is not identified as a discrete structure, however, no secondary findings of append icitis are identified. Mild nonspecific distention of large and small bowel loops are seen with air which may indicate ileus. No pathologic lymphadenopathy in the abdomen or pelvis. Moderate lumbosacral degenerative changes. IMPRESSION: Ground-glass opacities in both lungs greatest in the bases are seen. Consider the possibility of COVID pneumonia. Medical Problem List: Bilateral viral pneumonia with hypoxemia and positive COVID Acute on chronic kidney disease stage IV Rhabdomyolysis Diabetes mellitus type 2 Hypertension Chronic diastolic CHF Hyperlipidemia CAD with prior PA Brief History of Present Illness: 70-year-old male presented emergency room with shortness of breath. Patient found to have bilateral viral pneumonia. COVID was suspected. Patient admitted for further evaluation and treatment. Hospital Course: Patient presented with shortness of breath secondary to bilateral viral pneumonia with hypoxia. Patient was found to be positive for COVID. Patient was treated in the course of his stay. Patient improved. Patient was seen by p ulmonology. Patient did not require convalescent plasma. At discharge home oxygen will be arranged. Patient currently using 1.5 L per nasal cannula. This can be weaned off over time. At discharge pulmonology recommends to continue prednisone 10 mg 1 pill twice daily for 7 days. Recommend to follow up with pulmonology in 1 week to monitors progress. Recommend to recheck chest x-ray in 2-4 weeks to monitor resolution. Patient will continue with quarantine for 14 days. Patient will continue with CDC guidelines. Recommend to continue social distancing, hand washing and facemask use. Patient also presented with acute rhabdomyolysis with acute on chronic renal disease stage IV. Patient is seen by nephrology. Patient was given gentle hydration. His condition improved. At discharge patient will continue with sodium bicarbonate 650 mg 3 times a day. Recommend follow up with nephrology in 1 week to monitors progress. Recommend to recheck BMP and CPK in 1 week to monitors progress. Recommend no further use of nonsteroidal anti- inflammatories. Future medications will need to be renally dose. Patient with type 2 diabetes. This is remained stable. At discharge he will continue with Levemir 20 units subcu daily. Recommend to maintain blood sugar less 140 fasting and less than 200 after meals. Further adjustment can be done by his PCP. Patient with hypertension, CAD with prior PA and chronic diastolic CHF. Medications were adjusted during the course of his stay. Please note Lasix, ramipril, Zocor are to be held. He is not to use this medication until rhabdomyolysis has completely resolved. At discharge he will continue with Plavix 75 mg daily, Cardura 8 mg 1 pill twice daily, Norvasc 5 mg daily, hydralazine 100 mg 1 pill twice daily, and metoprolol 50 mg 1 pill twice daily. Recommend to maintain blood pressure less than 150/80. Further adjustment can be done by nephrology. Patient with hyperlipidemia. As mentioned above patient had acute rhabdomyoly sis. Therefore Zocor 40 mg will be held at this time. He will be told when this can be restarted. Vital Signs/Physical Exam: Temp Pulse Resp BP Pulse Ox 97.9 F 68 18 143/78 H 94 04/15/20 12:00 04/15/20 12:00 04/15/20 12:00 04/15/20 12:00 04/15/20 12:00 General: Alert, Cooperative HEENT: Atraumatic Neck: Supple Respiratory: Clear to auscultation bilaterally Cardiovascular: Normal pulses, Regular rate/rhythm Gastrointestinal: Normal bowel sounds Neurological: Normal speech, Normal strength at 5/5 x4 extr, Normal tone, Normal affect Other Physical/Emotional Findings: Patient with difficulty hearing Laboratory Data at Discharge: WBC 5.4 K/uL (4.3-10.9) D 04/12/20 06:15 Hgb 12.4 g/dL (13.6-17.9) L 04/12/20 06:15 Hct 37.5 % (39.6-49.0) L 04/12/20 06:15 Plt Count 138 K/uL (152-406) L 04/12/20 06:15 PT 11.5 SECONDS (9.5-12.5) 04/10/20 14:00 INR 0.97 04/10/20 14:00 APTT Cancelled 04/10/20 13:42 Sodium 142 mmol/L (136-145) 04/13/20 09:50 Potassium 4.3 mmol/L (3.5-5.1) 04/13/20 09:50 BUN 71 mg/dL (7-18) H 04/13/20 09:50 Creatinine 3.82 mg/dL (0.55-1.3) H 04/13/20 09:50 Glucose 153 mg/dL (74-106) H 04/13/20 09:50 Uric Acid 12.4 mg/dL (3.5-7.2) H 04/11/20 05:15 Phosphorus 4.5 mg/dL (2.5-4.9) 04/11/20 05:15 Magnesium 2.3 mg/dL (1.8-2.4) 04/13/20 09:50 Total Bilirubin 0.2 mg/dL (0.2-1.0) 04/10/20 14:00 AST 46 U/L (15-37) H 04/10/20 14:00 ALT 34 U/L (12-78) 04/10/20 14:00 Alkaline Phosphatase 48 U/L (45-117) 04/10/20 14:00 Amylase 106 U/L (25-115) 04/10/20 14:00 Lipase 263 U/L (73-393) 04/10/20 14:00 Home Medications: Clopidogrel Bisulfate [Plavix*] 75 mg PO DAILY #30 tablet 12/17/16 Doxazosin [Cardura*] 8 mg PO BID 12/17/16 Insulin Detemir [Levemir Flextouch] 20 unit SQ DAILY 12/17/16 Hydralazine [Apresoline*] 100 mg PO BID 08/12/18 Amlodipine [Norvasc*] 5 mg PO DAILY #30 tab 04/15/20 Folic Acid 1 mg PO DAILY #30 tablet 04/15/20 Metoprolol Tartrate [Lopressor*] 50 mg PO BID 6AM 6PM #60 tab 04/15/20 Na Bicarb Tab [Sodium Bicarb 325 MG Tab*] 650 mg PO TIDWM #180 tab 04/15/20 Thiamine HCl [Vitamin B-1*] 100 mg PO DAILY #30 tablet 04/15/20 predniSONE [Deltasone*] 10 mg PO BID #14 tab 04/15/20 New Medications: predniSONE [Deltasone*] 10 mg PO BID #14 tab Folic Acid 1 mg PO DAILY #30 tablet Metoprolol Tartrate [Lopressor*] 50 mg PO BID 6AM 6PM #60 tab Amlodipine [Norvasc*] 5 mg PO DAILY #30 tab Na Bicarb Tab [Sodium Bicarb 325 MG Tab*] 650 mg PO TIDWM #180 tab Thiamine HCl [Vitamin B-1*] 100 mg PO DAILY #30 tablet Patient Discharge Instructions: 1. Follow up with PCP in 1 week. 2. Patient presented with shortness of breath secondary to bilateral viral pneumonia with hypoxia. Patient was found to be positive for COVID. Patient was treated in the course of his stay. Patient improved. Patient was seen by pulmonology. Patient did not require convalescent plasma. At discharge home oxygen will be arranged. Patient currently using 1.5 L per nasal cannula. This can be weaned off over time. At discharge pulmonology recommends to continue prednisone 10 mg 1 pill twice daily for 7 days. Recommend to follow up with pulmonology in 1 week to monitors progress. Recommend to recheck chest x-ray in 2-4 weeks to monitor resolution. Patient will continue with quarantine for 14 days. Patient will continue with CDC guidelines. Recommend to continue social distancing, hand washing and facemask use. 3. Patient also presented with acute rhabdomyolysis with acute on chronic renal disease stage IV. Patient is seen by nephrology. Patient was given gentle hydration. His condition improved. At discharge patient will continue with sodium bicarbonate 650 mg 3 times a day. Recommend follow up with nephrology in 1 week to monitors progress. Recommend to recheck BMP and CPK in 1 week to monitors progress. Recommend no further use of nonsteroidal anti-inflammatories. Future medications will need to be renally dose. 4. Patient with type 2 diabetes. This is remained stable. At discharge he will continue with Levemir 20 units subcu daily. Recommend to maintain blood sugar less 140 fasting and less than 200 after meals. Further adjustment can be done by his PCP. 5. Patient with hypertension, CAD with prior PA and chronic diastolic CHF. Medications were adjusted during the course of his stay. Please note Lasix, ramipril, Zocor are to be held. He is not to use this medication until rhabdomyolysis has completely resolved. At discharge he will continue with Plavix 75 mg daily, Cardura 8 mg 1 pill twice daily, Norvasc 5 mg daily, hydralazine 100 mg 1 pill twice daily, and metoprolol 50 mg 1 pill twice daily. Recommend to maintain blood pressure less than 150/80. Further adjustment can be done by nephrology. 6. Patient with hyperlipidemia. As mentioned above patient had acute rhabdomyolysis. Therefore Zocor 40 mg will be held at this time. He will be told when this can be restarted. Diet: ADA Activity: Ad ashanti Time spent managing pt's care (in minutes): 55
[2020-04-15 16:57] VITALS: BP 145/72; TEMP 98
--- NOTE | 2020-04-15 20:54 | P.PN ---
Date of Service: 04/14/20 Vital Signs Temp Pulse Resp BP Pulse Ox 98 F 72 18 145/72 H 95 04/15/20 16:00 04/15/20 16:00 04/15/20 16:00 04/15/20 16:00 04/15/20 16:00 Microbiology Results 04/10/20 14:00 Blood - Blood Aerobic Blood Culture - Final No growth in 5 days. 04/10/20 14:00 Blood - Blood Anaerobic Blood Culture - Final No growth in 5 days. 04/10/20 14:01 Nasopharnyx Influenza Type A Antigen Screen - Final 04/10/20 14:01 Nasopharnyx Influenza Type B Antigen Screen - Final 04/10/20 14:01 Nasopharnyx Coronavirus COVID-19 PCR - Final Assessment/ Plan: Nephrology Persistent waxing and waning dyspnea with cough. No chest pain. Fatigue and weakness. No acute events overnight. Vitals, medications, blood work and imaging reviewed in the chart. General: Alert, Cooperative, Mild distress HEENT: Atraumatic Neck: Supple Respiratory: Diminished Cardiovascular: No edema, Regular rate/rhythm Capillary refill: <2 Seconds Gastrointestinal: Soft and benign, Non-distended Musculoskeletal: No clubbing, No contractures Integumentary: No rashes, No cyanosis Neurological: Normal speech Laboratory Data (last 24 hrs) 04/10/20 14:00: PT 11.5, INR 0.97 04/10/20 14:00: WBC 6.3, Hgb 14.0, Hct 42.8, Plt Count 147 L 04/10/20 14:00: Sodium 139, Potassium 4.2, BUN 69 H, Creatinine 4.71 H, Glucose 115 H, Total Bilirubin 0.2, AST 46 H, ALT 34, Alkaline Phosphatase 48, Amylase 106, Lipase 263 Imagings Data: EXAM DESCRIPTION: RAD - Chest Single View - 04/10/2020 4:30 pm CLINICAL HISTORY: CONGESTION Chest pain. COMPARISON: Chest Single View dated 08/12/2018; Chest Single View dated 03/19/2017; Chest Single View dated 12/16/2016; CHEST SINGLE VIEW dated 10/07/2015 FINDINGS: Portable technique limits examination quality. Moderate bilateral pulmonary opacities are present, greater on the right, suspicious for interstitial pneumonia. The heart is moderately enlarged in size. No displaced fractures. EXAM DESCRIPTION: CT - Chest Abd Pelvis Wo Con - 04/10/2020 6:09 pm CLINICAL HISTORY: Chest and abdomen pain. PAIN COMPARISON: Chest Single View dated 04/10/2020 TECHNIQUE: A limited noncontrast study was performed. All CT scans are performed using dose optimization technique as appropriate and may include automated exposure control or mA/KV adjustment according to patient size. FINDINGS: Mild ground-glass opacities are present bilaterally, greatest in the lung bases.This may indicate interstitial pneumonia.No pleural or pericardial effusion.No intrathoracic adenopathy. The liver, spleen, pancreas, adrenal glands and kidneys are within normal limits for noncontrast study. No bowel obstruction, free air, free fluid or abscess. The appendix is not identified as a discrete structure, however, no secondary findings of appendicitis are identified. Mild nonspecific distention of large and small bowel loops are seen with air which may indicate ileus. No pathologic lymphadenopathy in the abdomen or pelvis. Moderate lumbosacral degenerative changes. IMPRESSION: Ground-glass opacities in both lungs greatest in the bases are seen. Consider the possibility of COVID pneumonia. Mild adynamic ileus is seen. Conclusions/Impression: A/ KRISTEL likely due to hypovolemia Acidosis CKD IV with proteinuria Rhabdomyolysis, mild MINI/ Secondary HyperPTH with hypocalcemia BL PNA positive for COVID 19. P/ Continue current POC and Medications. Continue oral bicarb. Continue abx. Continue metoprolol. Titrate doxazosin as needed. No NSAIDs. AM labs. Daily weight.
--- NOTE | 2020-04-15 20:55 | P.PN ---
Date of Service: 04/15/20 Vital Signs Temp Pulse Resp BP Pulse Ox 98 F 72 18 145/72 H 95 04/15/20 16:00 04/15/20 16:00 04/15/20 16:00 04/15/20 16:00 04/15/20 16:00 Microbiology Results 04/10/20 14:00 Blood - Blood Aerobic Blood Culture - Final No growth in 5 days. 04/10/20 14:00 Blood - Blood Anaerobic Blood Culture - Final No growth in 5 days. 04/10/20 14:01 Nasopharnyx Influenza Type A Antigen Screen - Final 04/10/20 14:01 Nasopharnyx Influenza Type B Antigen Screen - Final 04/10/20 14:01 Nasopharnyx Coronavirus COVID-19 PCR - Final Assessment/ Plan: Nephrology Feeling better. CPS improved without CP. +HOPKINS +Appetite No acute events overnight. Vitals, medications, blood work and imaging reviewed in the chart. General: Alert, Cooperative, Mild distress HEENT: Atraumatic Neck: Supple Respiratory: Diminished Cardiovascular: No edema, Regular rate/rhythm Capillary refill: <2 Seconds Gastrointestinal: Soft and benign, Non-distended Musculoskeletal: No clubbing, No contractures Integumentary: No rashes, No cyanosis Neurological: Normal speech Laboratory Data (last 24 hrs) 04/10/20 14:00: PT 11.5, INR 0.97 04/10/20 14:00: WBC 6.3, Hgb 14.0, Hct 42.8, Plt Count 147 L 04/10/20 14:00: Sodium 139, Potassium 4.2, BUN 69 H, Creatinine 4.71 H, Glucose 115 H, Total Bilirubin 0.2, AST 46 H, ALT 34, Alkaline Phosphatase 48, Amylase 106, Lipase 263 Imagings Data: EXAM DESCRIPTION: RAD - Chest Single View - 04/10/2020 4:30 pm CLINICAL HISTORY: CONGESTION Chest pain. COMPARISON: Chest Single View dated 08/12/2018; Chest Single View dated 03/19/2017; Chest Single View dated 12/16/2016; CHEST SINGLE VIEW dated 10/07/2015 FINDINGS: Portable technique limits examination quality. Moderate bilateral pulmonary opacities are present, greater on the right, suspicious for interstitial pneumonia. The heart is moderately enlarged in size. No displaced fractures. EXAM DESCRIPTION: CT - Chest Abd Pelvis Wo Con - 04/10/2020 6:09 pm CLINICAL HISTORY: Chest and abdomen pain. PAIN COMPARISON: Chest Single View dated 04/10/2020 TECHNIQUE: A limited noncontrast study was performed. All CT scans are performed using dose optimization technique as appropriate and may include automated exposure control or mA/KV adjustment according to patient size. FINDINGS: Mild ground-glass opacities are present bilaterally, greatest in the lung bases.This may indicate interstitial pneumonia.No pleural or pericardial effusion.No intrathoracic adenopathy. The liver, spleen, pancreas, adrenal glands and kidneys are within normal limits for noncontrast study. No bowel obstruction, free air, free fluid or abscess. The appendix is not identified as a discrete structure, however, no secondary findings of appendicitis are identified. Mild nonspecific distention of large and small bowel loops are seen with air which may indicate ileus. No pathologic lymphadenopathy in the abdomen or pelvis. Moderate lumbosacral degenerative changes. IMPRESSION: Ground-glass opacities in both lungs greatest in the bases are seen. Consider the possibility of COVID pneumonia. Mild adynamic ileus is seen. Conclusions/Impression: A/ KRISTEL likely due to hypovolemia Acidosis CKD IV with proteinuria Rhabdomyolysis, mild MINI/ Secondary HyperPTH with hypocalcemia BL PNA positive for COVID 19 with Hypoxia. P/ Continue current POC and Medications. Continue oral bicarb. Continue abx. Continue metoprolol. Increase Doxazosin. Plan to send home with Oxygen. No NSAIDs. AM labs prn. Daily weight. Case reviewed with Dr. Milian
[2020-04-16 04:21] LABS: HBsAG Nonreactive (Nonreactive)
== END 2020-04-15 16:50 | disposition home or self-care (01) | DRG 177 ==
LOC: ER 13:13 → ERHOLD 18:01 → 4TH 04-11 18:17
PROVIDERS: ADMIT Family Medicine; ATTEND Family Medicine
DX: U07.1 COVID-19 (principal); N17.0 Acute kidney failure with tubular necrosis; J12.89 Other viral pneumonia; N18.4 Chronic kidney disease, stage 4 (severe); I13.0 Hypertensive heart and chronic kidney disease with heart failure and stage 1 through stage 4 chronic kidney disease, or unspecified chronic kidney disease; I50.32 Chronic diastolic (congestive) heart failure; M62.82 Rhabdomyolysis; N25.81 Secondary hyperparathyroidism of renal origin; N17.9 Acute kidney failure, unspecified; E11.22 Type 2 diabetes mellitus with diabetic chronic kidney disease; E78.5 Hyperlipidemia, unspecified; I25.10 Atherosclerotic heart disease of native coronary artery without angina pectoris; M10.9 Gout, unspecified; E86.1 Hypovolemia; E83.51 Hypocalcemia; T38.0X5A Adverse effect of glucocorticoids and synthetic analogues, initial encounter; E09.65 Drug or chemical induced diabetes mellitus with hyperglycemia; D63.8 Anemia in other chronic diseases classified elsewhere; R09.02 Hypoxemia; I25.2 Old myocardial infarction; Z87.891 Personal history of nicotine dependence
CPT/HCPCS: 36415; 71045; 71250; 74018; 74176; 80048; 80076; 81001; 81003; 81015; 82150; 82550; 82553; 82947; 83605; 83690; 83735; 84100; 84145; 84484; 84550; 85025; 85610; 86317; 86704; 87040; 87340; 87804; 93005; 94760; 96365; 99285; J0360; J0696; J1100; J1644; J2270; J2405; J7120; U0002

== ENCOUNTER 2020-04-23 21:01 | Inpatient (IN) | payer OTHER ==
--- NOTE | 2020-04-23 23:19 | ER ---
Nurse's Notes [facility] Name: José Miguel Peraza Jr Age: 70 yrs Sex: Male : 1950 Arrival Date: 04/23/2020 Time: 21:08 Bed 16 Private MD: Diagnosis: SARS-associated coronavirus as the cause of diseases classified elsewhere;Pneumonia due to other specified bacteria-mulitifocal;Hypoxemia;Type 2 diabetes mellitus;Unspecified kidney failure-acute on chronic;Hyperkalemia;Essential (primary) hypertension;Elevated white blood cell count Presentation: 04/23 21:09 Chief complaint: EMS states: BIBA FROM HOME PER FAMILY PT HAVING ANXIETY ATTACK. HX OF mt2 COPD ANXIETY. PT WAS TACHYPNEIC AND SOBON SCENE. SPO2 AT 88%. EMS PLACED ON NC 6 LITERS. PT AT 95% POST. HR 106 98.6 149/91. DENIES CP. Coronavirus screen: Patient denies a cough. Patient denies shortness of breath or difficulty breathing. Patient denies measured and/or subjective temperature greater than 100.4F prior to today's visit. Patient denies travel on a cruise ship or to a country the [facility] currently lists as an affected area. Patient denies contact with known and/or suspected case of COVID-19. Patient instructed to continue to wear a mask when interacting with others. Patient moved to private room, placed in contact and droplet isolation with eye protection until further assessment. Ebola Screen: No symptoms or risks identified at this time. Initial Sepsis Screen: Does the patient meet any 2 criteria? No. Patient's initial sepsis screen is negative. Does the patient have a suspected source of infection? No. Patient's initial sepsis screen is negative. Risk Assessment: Do you want to hurt yourself or someone else? Patient reports no desire to harm self or others. Onset of symptoms was April 23, 2020. 21:09 Method Of Arrival: EMS: [facility] mt2 21:09 Acuity: BRAD 3 mt2 21:43 Coronavirus screen: Prior COVID test collected on: 04/10/2020 results are in a paper sg copy format on the chart. ED staff notified of results from previous visit as this patient was not sure what his results were. Triage Assessment: 21:20 General: Appears distressed, uncomfortable, Behavior is anxious. Pain: Complains of mt2 pain in right arm Pain currently is 8 out of 10 on a pain scale. EENT: No deficits noted. Neuro: No deficits noted. Cardiovascular: No deficits noted. Respiratory: Airway is patent Respiratory effort is labored, Respiratory pattern is tachypnea. GI: No deficits noted. : No deficits noted. Derm: No deficits noted. Musculoskeletal: No deficits noted. Historical: - Allergies: 21:38 No Known Allergies; sg - Home Meds: 21:38 doxazosin 4 mg Oral tab 1 tab three times a day [Active]; hydralazine 100 mg Oral tab 1 sg tab 2 times per day [Active]; Lasix 40 mg Oral tab 1 tab once daily [Active]; metoprolol tartrate 100 mg Oral tab 1 tab 2 times per day [Active]; Plavix 75 mg Oral tab 1 tab once daily [Active]; ramipril 10 mg Oral cap 1 cap once daily [Active]; simvastatin 40 mg Oral tab 1 tab once daily [Active]; 04/24 06:52 folic acid 1 mg Oral tab 1 tab [Active]; amlodipine 5 mg tab 1 tab once daily for mt2 Hypertension [Active]; probenecid 500 mg Oral tab 1 tab daily [Active]; - PMHx: 04/23 21:38 Diabetes - NIDDM; Gout; Hypertension; Myocardial infarction; sg - Immunization history:: Adult Immunizations unknown. - Family history:: not pertinent. - Social history:: Smoking status: Patient/guardian denies using tobacco. Screenin:38 Abuse screen: Denies threats or abuse. Nutritional screening: No deficits noted. mt2 Tuberculosis screening: No symptoms or risk factors identified. Fall Risk Gait- Weak (10 pts.). Assessment: 22:00 Reassessment: Patient and/or family updated on plan of care and expected duration. Pain mt2 level reassessed. General: Appears uncomfortable, Behavior is anxious, restless. Pain: Complains of pain in abdomen Pain currently is 7 out of 10 on a pain scale. 23:50 Reassessment: notified, pt has had multiple missed IV attempts by ED staff, sg to attempt insertion of IV EJ. 04/24 00:10 Reassessment: DR. JEAN BAPTISTE PLACED RIGHT FEMORAL CENTRAL LINE USING STERILE TECHNIQUE. mt2 LABS WERE DRAWN AND SENT. PT TOLERATED WELL. General: Appears comfortable, Behavior is anxious. 01:00 Reassessment: Patient and/or family updated on plan of care and expected duration. Pain mt2 level reassessed. Patient denies pain at this time. Patient states symptoms have improved. General: Appears comfortable, Behavior is calm, cooperative. 02:00 Reassessment: Patient and/or family updated on plan of care and expected duration. Pain mt2 level reassessed. Patient denies pain at this time. General: Appears comfortable, Behavior is cooperative. 03:00 Reassessment: Patient and/or family updated on plan of care and expected duration. Pain mt2 level reassessed. Patient denies pain at this time. General: Appears comfortable. Vital Signs: 04/23 21:09 BP 155 / 87; Pulse 101; Resp 24; Temp 98.2(TE); Pulse Ox 96% on 2 lpm NC; Pain 0/10; mt2 22:00 BP 138 / 74; Pulse 107; Resp 33; Pulse Ox 97% on 3 lpm NC; Pain 0/10; mt2 23:00 BP 154 / 97; Pulse 101; Resp 24; Temp 98.7(O); Pulse Ox 97% on 2 lpm NC; Pain 0/10; mt2 04/24 00:00 BP 140 / 79; Pulse 108; Resp 20; Pulse Ox 99% on 2 lpm NC; Pain 0/10; mt2 01:00 BP 129 / 115; Pulse 104; Resp 27; Pulse Ox 97% on 3 lpm NC; Pain 0/10; mt2 02:00 BP 139 / 79; Pulse 99; Resp 27; Pulse Ox 97% 3 lpm ; Pain 0/10; mt2 02:21 Weight 87.54 kg; mt2 03:25 BP 132 / 101; Pulse 100; Resp 30; Pulse Ox 99% 3 lpm ; Pain 0/10; mt2 04:30 BP 149 / 91; Pulse 100; Resp 24; Pulse Ox 97% 3 lpm ; Pain 0/10; mt2 Vitals: 04/23 22:00 Cardiac Rhythm Assessment Sinus tach. mt2 04/24 01:00 Cardiac Rhythm Assessment Sinus tach. mt2 ED Course: 04/23 21:08 Patient arrived in ED. ds1 21:09 Ashli Thompson RN is Primary Nurse. mt2 21:09 Noman Jean Baptiste MD is Attending Physician. deepak 21:12 Triage completed. mt2 21:20 Arm band placed on right wrist. mt2 21:38 Bed in low position. Call light in reach. Side rails up X 1. mt2 22:18 XRAY Chest (1 view) In Process Unspecified. EDMS 23:12 Stoney Goldstein is Hospitalizing Provider. deepak 23:36 Missed attempt(s): 20 gauge in left antecubital area. Bleeding controlled, band aid sg applied, catheter tip intact. IV without good blood return, 20 G 8 CM PowerGlide MidlinePro DCd at this time. 04/24 00:00 Assisted provider with central line placement. Set up central line tray. Triple lumen sg line placed in right femoral. Line placed by Noman Jean Baptiste MD Dressed with Tegaderm, Blood was collected. Patient tolerated well. Patient \T\ family education about procedure, CLABSI prevention and S/S of infection? Yes. Time-out/Briefing performed prior to start of procedure? Yes. Was handwashing/sanitizing done immediately prior to procedure? Yes. Was patient positioned to in a way to prevent air embolism? Yes. Was procedure site sterilized? Yes, with Was the site allowed to dry? Yes. Was local anesthetic and/or sedation utilized? Yes. During the procedure, did the Practitioner(s) maintain a sterile field? Yes. Were unused ports clamped during insertion? Yes. Was a 2nd qualified MD obtained after 3 unsuccessful insertion attempts? No. Was blood aspirated from each lumen? No. After the procedure, did the Practitioner(s) clean the site and apply a sterile dressing? Yes. 02:09 Brennan cath inserted, using sterile technique, 16 Fr., by nv, balloon inflated, to mt2 gravity drainage. 04:29 Patient admitted, IV remains in place. mt2 Administered Medications: 04/23 23:56 CANCELLED (Physician Discretion): vancoMYCIN 1 grams IVPB once over 2 hrs mt2 04/24 00:10 Drug: Albuterol HFA Inhaler 4 puffs Route: Inhalation; mt2 00:40 Drug: Decadron - Dexamethasone 6 mg Route: IVP; Site: right femoral; mt2 01:00 Follow up: Response: No adverse reaction mt2 00:40 Drug: Rocephin 1 grams {Note: MEDS WERE ON HOLD DUE TO NO IV ACCESS.} Route: IV; Rate: mt2 per protocol; Site: right femoral; 00:46 Follow up: IV Status: Completed infusion; IV Intake: 10ml mt2 00:40 Drug: Zithromax 500 mg {Note: MEDS WERE ON HOLD DUE TO NO IV ACCESS.} Route: IVPB; mt2 Infused Over: 1 hrs; Site: right femoral; 01:40 Follow up: Response: No adverse reaction; IV Status: Completed infusion; IV Intake: mt2 250ml 00:40 Drug: NS 0.9% 1000 ml {Note: MEDS WERE ON HOLD DUE TO NO IV ACCESS.} Route: IV; Rate: mt2 75 ml/hr; Site: right femoral; 04:28 Follow up: Response: No adverse reaction; IV Status: Infusion continued upon admission mt2 00:40 Drug: Lasix 40 mg {Note: MEDS WERE ON HOLD DUE TO NO IV ACCESS..} Route: IVP; Site: pr2 right femoral; 01:19 Follow up: Response: No adverse reaction mt2 02:30 Drug: ProTONIX 40 mg Route: IVP; Site: right femoral; mt2 03:00 Follow up: Response: No adverse reaction mt2 02:59 Drug: Heparin (NC-Bolus No thrombolytic) - HEParin 60 units/kg {Co-Signature: sg mt2 (Danielito Carter RN).} Route: IVP; Site: right femoral; 03:30 Follow up: Response: No adverse reaction mt2 03:00 Drug: Heparin (NC Drip) 12 units/kg/hr - (HEParin 49673 units, D5W 500 ml) mt2 {Co-Signature: sg (Danielito Carter RN).} Route: IV; Rate: calculated rate; Site: right femoral; 04:27 Follow up: Response: No adverse reaction; IV Status: Infusion continued upon admission mt2 03:16 Drug: Kayexalate 45 grams Route: PO; mt2 04:00 Follow up: Response: No adverse reaction mt2 Intake: 00:46 IV: 10ml; Total: 10ml. mt2 01:40 IV: 250ml; Total: 260ml. mt2 Outcome: 04/23 23:18 Decision to Hospitalize by Provider. [facility] 04/24 04:29 Admitted to ICU accompanied by nurse, accompanied by tech, via stretcher, room 3, with mt2 oxygen, on monitor, with chart, Report called to rashid mitchell Condition: stable Instructed on the need for admit. 04:31 Patient left the ED. mt2 Signatures: Dispatcher [employer] EDDanielito Penny, BEENA RN Noman Reddy MD MD cha Sanford, Demi ds1 Ashli Thompson RN RN mt2 Danielito al
--- NOTE | 2020-04-23 23:19 | EDPHYS ---
Physician Documentation [facility] Name: José Miguel Peraza Jr Age: 70 yrs Sex: Male : 1950 Arrival Date: 04/23/2020 Time: 21:08 Bed 16 Private MD: ED Physician Noman Garnica HPI: 04/23 21:43 This 70 yrs old Black Male presents to ER via EMS with complaints of Anxiety. deepak 21:43 The patient has shortness of breath at rest, with light activity. Onset: The deepak symptoms/episode began/occurred 2 day(s) ago. Duration: The symptoms are continuous, and are steadily getting worse. The patient's shortness of breath is aggravated by coughing, exertion, light activity, supine position. The patient or guardian reports cough, that is intermittent, difficulty breathing, flu symptoms, arthralgias, low-grade fever, myalgias, no appetite, hoarse voice. Modifying factors: The symptoms are alleviated by elevating head, remaining still, the symptoms are aggravated by activity, lying flat, talking. Severity of symptoms: At their worst the symptoms were mild moderate in the emergency department the symptoms are unchanged despite home interventions. Onset: The symptoms/episode began/occurred 2 week(s) ago. Historical: - Allergies: 21:38 No Known Allergies; sg - Home Meds: 21:38 doxazosin 4 mg Oral tab 1 tab three times a day [Active]; hydralazine 100 mg Oral tab 1 sg tab 2 times per day [Active]; Lasix 40 mg Oral tab 1 tab once daily [Active]; metoprolol tartrate 100 mg Oral tab 1 tab 2 times per day [Active]; Plavix 75 mg Oral tab 1 tab once daily [Active]; ramipril 10 mg Oral cap 1 cap once daily [Active]; simvastatin 40 mg Oral tab 1 tab once daily [Active]; 04/24 06:52 folic acid 1 mg Oral tab 1 tab [Active]; amlodipine 5 mg tab 1 tab once daily for mt2 Hypertension [Active]; probenecid 500 mg Oral tab 1 tab daily [Active]; - PMHx: 04/23 21:38 Diabetes - NIDDM; Gout; Hypertension; Myocardial infarction; sg - Immunization history:: Adult Immunizations unknown. - Family history:: not pertinent. - Social history:: Smoking status: Patient/guardian denies using tobacco. ROS: 21:43 Constitutional: Negative for fever, chills, and weight loss, Eyes: Negative for injury, deepak pain, redness, and discharge, ENT: Negative for injury, pain, and discharge, Neck: Negative for injury, pain, and swelling, Abdomen/GI: Negative for abdominal pain, nausea, vomiting, diarrhea, and constipation, Back: Negative for injury and pain, : Negative for injury, bleeding, discharge, and swelling, MS/Extremity: Negative for injury and deformity, Skin: Negative for injury, rash, and discoloration, Neuro: Negative for headache, weakness, numbness, tingling, and seizure, Psych: Negative for depression, anxiety, suicide ideation, homicidal ideation, and hallucinations, Allergy/Immunology: Negative for hives, rash, and allergies, Endocrine: Negative for neck swelling, polydipsia, polyuria, polyphagia, and marked weight changes, Hematologic/Lymphatic: Negative for swollen nodes, abnormal bleeding, and unusual bruising. 21:43 Cardiovascular: Positive for palpitations. 21:43 Respiratory: Positive for cough, shortness of breath, wheezing, expiratory. 21:43 MS/extremity: Positive for swelling, mild, no homans no cords. Exam: 21:43 Constitutional: This is a well developed, well nourished patient who is awake, alert, deepak and in no acute distress. Head/Face: Normocephalic, atraumatic. Eyes: Pupils equal round and reactive to light, extra-ocular motions intact. Lids and lashes normal. Conjunctiva and sclera are non-icteric and not injected. Cornea within normal limits. Periorbital areas with no swelling, redness, or edema. ENT: Nares patent. No nasal discharge, no septal abnormalities noted. Tympanic membranes are normal and external auditory canals are clear. Oropharynx with no redness, swelling, or masses, exudates, or evidence of obstruction, uvula midline. Mucous membranes moist. Neck: Trachea midline, no thyromegaly or masses palpated, and no cervical lymphadenopathy. Supple, full range of motion without nuchal rigidity, or vertebral point tenderness. No Meningismus. Chest/axilla: Normal chest wall appearance and motion. Nontender with no deformity. No lesions are appreciated. Cardiovascular: Regular rate and rhythm with a normal S1 and S2. No gallops, murmurs, or rubs. Normal PMI, no JVD. No pulse deficits. Abdomen/GI: Soft, non-tender, with normal bowel sounds. No distension or tympany. No guarding or rebound. No evidence of tenderness throughout. Back: No spinal tenderness. No costovertebral tenderness. Full range of motion. Male : Normal genitalia with no discharge or lesions. Skin: Warm, dry with normal turgor. Normal color with no rashes, no lesions, and no evidence of cellulitis. Neuro: Awake and alert, GCS 15, oriented to person, place, time, and situation. Cranial nerves II-XII grossly intact. Motor strength 5/5 in all extremities. Sensory grossly intact. Cerebellar exam normal. Normal gait. Psych: Awake, alert, with orientation to person, place and time. Behavior, mood, and affect are within normal limits. 21:43 Respiratory: the patient does not display signs of respiratory distress, Respirations: normal, no acute changes, Breath sounds: decreased breath sounds, rhonchi, stridor, is not appreciated, + upper airway congestion. wheezing: expiratory that is mild. 22:57 ECG was reviewed by the Attending Physician. deepak Vital Signs: 21:09 BP 155 / 87; Pulse 101; Resp 24; Temp 98.2(TE); Pulse Ox 96% on 2 lpm NC; Pain 0/10; mt2 22:00 BP 138 / 74; Pulse 107; Resp 33; Pulse Ox 97% on 3 lpm NC; Pain 0/10; mt2 23:00 BP 154 / 97; Pulse 101; Resp 24; Temp 98.7(O); Pulse Ox 97% on 2 lpm NC; Pain 0/10; mt2 07/23 00:00 BP 140 / 79; Pulse 108; Resp 20; Pulse Ox 99% on 2 lpm NC; Pain 0/10; mt2 01:00 BP 129 / 115; Pulse 104; Resp 27; Pulse Ox 97% on 3 lpm NC; Pain 0/10; mt2 02:00 BP 139 / 79; Pulse 99; Resp 27; Pulse Ox 97% 3 lpm ; Pain 0/10; mt2 02:21 Weight 87.54 kg; mt2 03:25 BP 132 / 101; Pulse 100; Resp 30; Pulse Ox 99% 3 lpm ; Pain 0/10; mt2 04:30 BP 149 / 91; Pulse 100; Resp 24; Pulse Ox 97% 3 lpm ; Pain 0/10; mt2 Procedures: 00:27 Central Line: the site was prepped with Betadine, in sterile fashion, a triple lumen deepak catheter was inserted, in the right femoral vein, in 1 attempts. placement was verified, by blood return, the site was dressed with using sterile technique, the patient tolerated the procedure, well. MDM: 04/23 21:09 Patient medically screened. [facility] 21:46 Differential diagnosis: Anxiety Reaction asthma, Bronchitis CHF exacerbation, Chronic deepak Obstructive Pulmonary Disease flu, URI, pneumonia, pulmonary edema, Pulmonary Embolism reactive airway disease, Sepsis. Antibiotic administration: Rocephin and Zithromax given. The patient's Wells Deep Vein Thrombosis Score was calculated as follows: Heart Rate >100 BPM (1.5 Pts) Total Score: 0-2 Pts- Low Risk. Differential Diagnosis: Bronchitis Influenza Upper Respiratory Infection Asthma Exacerbation Viral Syndrome Pneumonia. The patient's pulmonary embolism risk score was calculated as follows: the patients heart rate is greater than 100 beats per minute (1.5 Pts) Total Score: 0-2 points. This patient was found to be at low risk for a pulmonary embolism by using the Well's assessment criteria. Immunization status: Pneumococcal vaccine: Influenza vaccine: Data reviewed: vital signs, nurses notes, lab test result(s), EKG, radiologic studies. 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 Test interpretation: by ED physician or midlevel provider: ECG, plain radiologic studies. Counseling: I had a detailed discussion with the patient and/or guardian regarding: the historical points, exam findings, and any diagnostic results supporting the discharge/admit diagnosis, the presence of at least one elevated blood pressure reading (>120/80) during this emergency department visit, lab results, radiology results, the need for further work-up and treatment in the hospital. 04/24 00:26 ED course: call to [facility], no beds.pt tachypenic, central line placed. [facility] 04/23 21:39 Order name: Basic Metabolic Panel; Complete Time: 01:49 [facility] 04/23 21:39 Order name: CBC with Diff [facility] 04/23 21:39 Order name: LFT's; Complete Time: 01:49 [facility] 04/23 21:39 Order name: Magnesium; Complete Time: 01:49 [facility] 04/23 21:39 Order name: NT PRO-BNP; Complete Time: 01:49 [facility] 04/23 21:39 Order name: Troponin (emerg Dept Use Only); Complete Time: 01:49 [facility] 04/23 21:39 Order name: XRAY Chest (1 view) [facility] 04/23 21:39 Order name: Blood Culture Adult (2) [facility] 04/23 21:39 Order name: Lactate; Complete Time: 01:49 [facility] 04/23 21:41 Order name: D-Dimer; Complete Time: 01:49 [facility] 04/24 01:41 Order name: Manual Differential [facility] 04/23 21:39 Order name: EKG; Complete Time: 21:40 [facility] 04/23 21:39 Order name: Cardiac monitoring; Complete Time: 01:21 [facility] 04/23 21:39 Order name: EKG - Nurse/Tech; Complete Time: 22:31 [facility] 04/23 21:39 Order name: IV Saline Lock; Complete Time: 01:21 [facility] 04/23 21:39 Order name: Labs collected and sent; Complete Time: 01:21 [facility] 04/23 21:39 Order name: O2 Per Protocol; Complete Time: 22:31 [facility] 04/23 21:39 Order name: O2 Sat Monitoring; Complete Time: 22:31 [facility] 04/24 02:45 Order name: CONS Physician Consult [facility] 04/24 01:12 Order name: Central Line Kit; Complete Time: 01:17 [facility] 04/24 01:51 Order name: Brennan; Complete Time: 02:09 [facility] EC/22 22:57 Rate is 101 beats/min. Rhythm is regular. QRS [place] is Normal. [place] interval is normal. [facility] QRS interval is normal. QT interval is normal. No Q waves. T waves are Normal. No ST changes noted. Clinical impression: NSR w/ Non-specific ST/T Changes and Sinus tachycardia. Interpreted by me. Reviewed by me. Administered Medications: 23:56 CANCELLED (Physician Discretion): vancoMYCIN 1 grams IVPB once over 2 hrs mt2 04/24 00:10 Drug: Albuterol HFA Inhaler 4 puffs Route: Inhalation; mt2 00:40 Drug: Decadron - Dexamethasone 6 mg Route: IVP; Site: right femoral; mt2 01:00 Follow up: Response: No adverse reaction mt2 00:40 Drug: Rocephin 1 grams {Note: MEDS WERE ON HOLD DUE TO NO IV ACCESS.} Route: IV; Rate: mt2 per protocol; Site: right femoral; 00:46 Follow up: IV Status: Completed infusion; IV Intake: 10ml mt2 00:40 Drug: Zithromax 500 mg {Note: MEDS WERE ON HOLD DUE TO NO IV ACCESS.} Route: IVPB; mt2 Infused Over: 1 hrs; Site: right femoral; 01:40 Follow up: Response: No adverse reaction; IV Status: Completed infusion; IV Intake: mt2 250ml 00:40 Drug: NS 0.9% 1000 ml {Note: MEDS WERE ON HOLD DUE TO NO IV ACCESS.} Route: IV; Rate: mt2 75 ml/hr; Site: right femoral; 04:28 Follow up: Response: No adverse reaction; IV Status: Infusion continued upon admission mt2 00:40 Drug: Lasix 40 mg {Note: MEDS WERE ON HOLD DUE TO NO IV ACCESS..} Route: IVP; Site: mt2 right femoral; 01:19 Follow up: Response: No adverse reaction mt2 02:30 Drug: ProTONIX 40 mg Route: IVP; Site: right femoral; mt2 03:00 Follow up: Response: No adverse reaction mt2 02:59 Drug: Heparin (GA-Bolus No thrombolytic) - HEParin 60 units/kg {Co-Signature: sg mt2 (Danielito Carter RN).} Route: IVP; Site: right femoral; 03:30 Follow up: Response: No adverse reaction mt2 03:00 Drug: Heparin (GA Drip) 12 units/kg/hr - (HEParin 58490 units, D5W 500 ml) mt2 {Co-Signature: sg (Danielito Carter RN).} Route: IV; Rate: calculated rate; Site: right femoral; 04:27 Follow up: Response: No adverse reaction; IV Status: Infusion continued upon admission mt2 03:16 Drug: Kayexalate 45 grams Route: PO; mt2 04:00 Follow up: Response: No adverse reaction mt2 Disposition: 04/23/20 23:18 Hospitalization ordered by Stoney Goldstein for Inpatient Admission. Preliminary diagnosis are SARS-associated coronavirus as the cause of diseases classified elsewhere, Pneumonia due to other specified bacteria - mulitifocal, Hypoxemia, Type 2 diabetes mellitus, Unspecified kidney failure - acute on chronic, Hyperkalemia, Essential (primary) hypertension, Elevated white blood cell count. - Bed requested for Intensive Care Unit. - Status is Inpatient Admission. mt2 - Condition is Fair. - Problem is new. - Symptoms have improved. Signatures: Dispatcher [employer] EDMS Samina Brooks RN RN mw Gay, Steven, RN RN sg Anderson, Corey, MD MD cha Toscano, Marlene, RN RN [facility] Danielito al Corrections: (The following items were deleted from the chart) 04/23 23:26 23:18 Hospitalization Ordered by Stoney Goldstein for Inpatient Admission. Preliminary diagnosis is SARS-associated coronavirus as the cause of diseases classified elsewhere; Pneumonia due to other specified bacteria - mulitifocal; Hypoxemia; Type 2 diabetes mellitus. Bed requested for Intensive Care Unit. Status is Inpatient Admission. Condition is Fair. Problem is new. Symptoms have improved. deepak 23:56 23:55 Vancocin [vancoMYCIN 1 grams IVPB once over 2 hrs] ordered. mt2 mt2 04/24 01:57 04/23 23:26 04/23/2020 23:18 Hospitalization Ordered by Stoney Goldstein for Inpatient [facility] Admission. Preliminary diagnosis is SARS-associated coronavirus as the cause of diseases classified elsewhere; Pneumonia due to other specified bacteria - mulitifocal; Hypoxemia; Type 2 diabetes mellitus. Bed requested for Intensive Care Unit. Status is Inpatient Admission. Condition is Fair. Problem is new. Symptoms have improved. 04/24 01:57 01:57 04/23/2020 23:18 Hospitalization Ordered by Stoney Goldstein for Inpatient [facility] Admission. Preliminary diagnosis is SARS-associated coronavirus as the cause of diseases classified elsewhere; Pneumonia due to other specified bacteria - mulitifocal; Hypoxemia; Type 2 diabetes mellitus; Unspecified kidney failure - acute on chronic; Hyperkalemia. Bed requested for Intensive Care Unit. Status is Inpatient Admission. Condition is Fair. Problem is new. Symptoms have improved. deepak 04:31 01:57 04/23/2020 23:18 Hospitalization Ordered by Stoney Goldstein for Inpatient fl2 Admission. Preliminary diagnosis is SARS-associated coronavirus as the cause of diseases classified elsewhere; Pneumonia due to other specified bacteria - mulitifocal; Hypoxemia; Type 2 diabetes mellitus; Unspecified kidney failure - acute on chronic; Hyperkalemia; Essential (primary) hypertension; Elevated white blood cell count. Bed requested for Intensive Care Unit. Status is Inpatient Admission. Condition is Fair. Problem is new. Symptoms have improved. deepak
--- NOTE | 2020-04-24 00:21 | P.HP ---
Certification for Inpatient Patient admitted to: Inpatient With expected LOS: >2 Midnights Practitioner: I am a practitioner with admitting privileges, knowledge of patient current condition, hospital course, and medical plan of care. Services: Services provided to patient in accordance with Admission requirements found in Title 42 Section 412.3 of the Code of Federal Regulations Patient History Date of Service: 04/24/20 Reason for admission: Shortness of breath, hypoxia. History of Present Illness: 70-year-old man with a history of chronic diastolic heart f ailure, chronic kidney disease and diabetes mellitus type 2 was brought to the emergency department due to progressive shortness of breath. Patient was noted to be hypoxic on room air and was placed on 6 L by EMS. He is currently maintained on 2-3 L of oxygen in the ED. He was hospitalized about 12 days ago for acute renal failure and bilateral pneumonia and tested positive for COVID. He was discharged with supplemental oxygen and oral Prednisone. Chest x-ray in the ED today demonstrated worsened bilateral opacities. Patient noted to be in moderate distress during my examination. He is admitted for further management of viral pneumonia with hypoxia. Allergies No Known Drug Allergies Allergy (Verified 04/10/20 21:02) Unknown No Known Allergies Allergy (Uncoded 04/10/20 21:02) Unknown Home Medications: Clopidogrel Bisulfate [Plavix*] 75 mg PO DAILY #30 tablet 12/17/16 Doxazosin [Cardura*] 8 mg PO BID 12/17/16 Insulin Detemir [Levemir Flextouch] 20 unit SQ DAILY 12/17/16 Hydralazine [Apresoline*] 100 mg PO BID 08/12/18 Amlodipine [Norvasc*] 5 mg PO DAILY #30 tab 04/15/20 Folic Acid 1 mg PO DAILY #30 tablet 04/15/20 Metoprolol Tartrate [Lopressor*] 50 mg PO BID 6AM 6PM #60 tab 04/15/20 Na Bicarb Tab [Sodium Bicarb 325 MG Tab*] 650 mg PO TIDWM #180 tab 04/15/20 Thiamine HCl [Vitamin B-1*] 100 mg PO DAILY #30 tablet 04/15/20 predniSONE [Deltasone*] 10 mg PO BID #14 tab 04/15/20 - Past Medical/Surgical History Diabetic: Yes -: Diabetes mellitus type 2, insulin-dependent -: HTN -: Chronic diastolic CHF -: Chronic renal disease, stage IV -: Hyperlipidemia -: CAD with prior [place] -: Gout -: Difficulty hearing -: Cataract Sx-bilateral eyes Psychosocial/ Personal History: Patient is - Family History Family History: Reviewed- Non-Contributory - Social History Alcohol use: No CD- Drugs: No Caffeine use: Yes Review of Systems Other: Except as documented, all other systems reviewed and negative. Physical Examination - Physical Exam General: Alert, Oriented x2, Moderate distress HEENT: Mucous membr. moist/pink, Sclerae nonicteric Neck: Supple, JVD not distended Respiratory: Crackles/rales (Bilateral) Cardiovascular: No edema, Regular rate/rhythm, Normal S1 S2 Gastrointestinal: Normal bowel sounds, Soft and benign, No tenderness Musculoskeletal: No swelling, No erythema Integumentary: No rashes Neurological: Normal strength at 5/5 x4 extr, Cranial nerves 3-12 intact Assessment and Plan - Problems (Diagnosis) (1) Viral pneumonia Current Visit: Yes Status: Acute (2) COVID-19 Current Visit: Yes Status: Acute (3) Chronic kidney disease (CKD), stage IV (severe) Onset Date: 12/16/16 Current Visit: No Status: Acute (4) Diabetes mellitus Onset Date: 08/14/18 Current Visit: No Status: Acute Qualifiers: Diabetes mellitus type: type 2 Diabetes mellitus long-term insulin use: with long-term use Diabetes mellitus complication status: with unspecified complications (5) Essential (primary) hypertension Onset Date: 12/16/16 Current Visit: No Status: Acute (6) Hyperkalemia Current Visit: Yes Status: Acute - Plan Admit to the medical floor. Titrate oxygen Start IV Dexamethasone Patient given IV Lasix in the ED. Will hold off giving further lasix given acute on chronic renal failure. IV Lasix should help treat the hyperkalemia. Elevated D-dimer likely secondary to COVID pneumonia Consult to pulmonary Consult nephrology. Monitor electrolytes and renal function. Chest physiotherapy. Insulin sliding scale for glucose management. - Advance Directives Does patient have a Living Will: No Does patient have a Durable POA for Healthcare: No
[2020-04-24] MEDS ORDERED: dexAMETHasone 10 MG/ML VIAL ONE (00:52)
[2020-04-24] MEDS ORDERED: NA CHLORIDE 0.9% 250 ML ONE (00:52)
[2020-04-24] MEDS ORDERED: AZITHROMYCIN 500 MG INJ IVPB ONE (00:52)
[2020-04-24] MEDS ORDERED: CEFTRIAXONE/SWI 1gm 1 GM/10 ML SYR ONE (00:53)
[2020-04-24] MEDS ORDERED: NA CHLORIDE 0.9% 1,000 ML ONE (00:53)
[2020-04-24] MEDS ORDERED: FUROSEMIDE 40 MG/4 ML VIAL ONE (00:53)
[2020-04-24] MEDS ORDERED: ALBUTEROL INHALER 60 PUFF/8 GM IH ONE (00:54)
[2020-04-24 01:28] LABS: Absolute Lymphocytes (CBC) 1.2 K/uL (0.7-4.9); Basophils % 0.3 % (0-1.3); Hematocrit 30.8 % (39.6-49.0); Lymphocytes % 6.8 % (15.3-44.8); MPV 8.1 fL (7.6-11.3); RBC Red Blood Cell Count 3.77 M/uL (4.33-5.43)
[2020-04-24 01:46] LABS: Albumin 1.7 g/dL (3.4-5.0); Bilirubin Direct 0.1 mg/dL (0-0.2); Bilirubin Total 0.4 mg/dL (0.2-1.0); Magnesium 2.4 mg/dL (1.8-2.4); Protein, Total 7.3 g/dL (6.4-8.2); Troponin (Emerg Dept Use Only) 0.04 ng/mL (0.0-0.045)
[2020-04-24 01:48] LABS: Potassium 5.6 mmol/L (3.5-5.1)
[2020-04-24 02:25] LABS: Blood Morphology Comment NOT SEEN (NOT SEEN); Platelet Estimate ADEQ
[2020-04-24] MEDS ORDERED: PANTOPRAZOLE 40 MG INJ ONE (02:25)
[2020-04-24] MEDS ORDERED: SOD POLYSTYREN SUL 15 GM/60 ML UCUP ONE ×2 (02:25→02:40)
[2020-04-24] MEDS ORDERED: HEPARIN/D5W 25,000 UNIT/500 ML BAG IV ONE (03:06)
[2020-04-24] MEDS ORDERED: ONDANSETRON 4 MG/2 ML VIAL IV PRN (04:05)
[2020-04-24] MEDS ORDERED: ACETAMINOPHEN 500 MG TAB PO PRN (04:05)
[2020-04-24 05:56] LABS: Urine Appearance CLOUDY; Urine Bilirubin NEGATIVE (NEG); Urine Blood NEGATIVE (NEG); Urine Color YELLOW; Urine Glucose NEGATIVE (NEG); Urine Protein 3+ (NEG); Urine Urobilinogen 0.2 mg/dL (0.2-1.0); Urine pH 5.5 (5.0-7.0)
[2020-04-24 05:57] LABS: Urine Microscopic Reflex ORDER UMIC
[2020-04-24] MEDS ORDERED: Levofloxacin 750mg IV 750 MG/150 ML BAG IV SCH (06:00)
[2020-04-24 06:08] LABS: Urine Amorphous Sediment 1+ /HPF (NONE SEEN); Urine Bacteria <20 /HPF (NONE SEEN); Urine Coarse Granular Casts 0-5 /LPF (NONE SEEN); Urine Culture Reflex Order REFLEXED; Urine RBC <5 /HPF (NONE SEEN); Urine Urothelial Cells <5 /HPF (NONE SEEN); Urine Waxy Casts 0-5 /LPF (NONE SEEN)
--- NOTE | 2020-04-24 07:23 | P.PN ---
Date of Service: 04/24/20 Patient seen. He is maintained on 3 L of oxygen by nasal cannula with good oxygen saturation. He is tachypneic, afebrile was stable blood pressure. Patient to be seen by Pulmonary and Nephrology. He may be a candidate for convalescent plasma. Continue IV steroid. Intermittent Lasix as needed. Titrate oxygen.
--- NOTE | 2020-04-24 07:25 | EKG ---
Test Date: 2020-04-23 Test Time: 22:29:35 Staff Development Coordinator Rn: LA NENA MEASUREMENT RESULTS: Intervals: Rate: 101 [place]: 130 QRSD: 84 QT: 360 QTc: 466 [place]: P: 46 [place]: 130 QRS: -1 T: 17 INTERPRETIVE STATEMENTS: Sinus tachycardia Otherwise normal ECG Compared to ECG 04/10/2020 14:25:27 Sinus rhythm no longer present Electronically Signed On 04-24-20 07:24:44 CDT by Daniele Rosen
[2020-04-24] MEDS: FUROSEMIDE 40 MG/4 ML VIAL IV SCH (08:22)
[2020-04-24] MEDS: dexAMETHasone 10 MG/ML VIAL IV SCH ×2 (08:22→17:02)
--- NOTE | 2020-04-24 08:37 | P.CNS ---
Date of Consult: 04/24/20 Reason for Consult: Respiratory failure Chief Complaint: Shortness of breath, hypoxia. History of Present Illness: Patient is 70 years of age with multiple medical problems heart failure renal disease diabetes port in the emergency room hypoxic respiratory failure he is tested positive for Crohn or virus and was discharged home on supplemental oxygen and prednisone he is back in the ER tree days and is worse Patient's renal function is much worse Allergies No Known Drug Allergies Allergy (Verified 04/24/20 05:18) Unknown Home Medications: Clopidogrel Bisulfate [Plavix*] 75 mg PO DAILY #30 tablet 12/17/16 Doxazosin [Cardura*] 8 mg PO BID 12/17/16 Insulin Detemir [Levemir Flextouch] 20 unit SQ DAILY 12/17/16 Hydralazine [Apresoline*] 100 mg PO BID 08/12/18 Amlodipine [Norvasc*] 5 mg PO DAILY #30 tab 04/15/20 Folic Acid 1 mg PO DAILY #30 tablet 04/15/20 Metoprolol Tartrate [Lopressor*] 50 mg PO BID 6AM 6PM #60 tab 04/15/20 Na Bicarb Tab [Sodium Bicarb 325 MG Tab*] 650 mg PO TIDWM #180 tab 04/15/20 Thiamine HCl [Vitamin B-1*] 100 mg PO DAILY #30 tablet 04/15/20 predniSONE [Deltasone*] 10 mg PO BID #14 tab 04/15/20 - Past Medical/Surgical History Diabetic: Yes -: Diabetes mellitus type 2, insulin-dependent -: HTN -: Chronic diastolic CHF -: Chronic renal disease, stage IV -: Hyperlipidemia -: CAD with prior [place] -: Gout -: Difficulty hearing -: Cataract Sx-bilateral eyes Psychosocial/ Personal History: Patient is - Social History Smoking Status: Never smoker Alcohol use: No CD- Drugs: No Caffeine use: Yes Place of Residence: Home Review of Systems is unable to be obtained Physical Examination Temp Pulse Resp BP Pulse Ox 96.9 F 90 25 H 144/84 H 96 04/24/20 05:00 04/24/20 08:22 04/24/20 06:00 04/24/20 08:22 04/24/20 06:00 General: Other (Deferred patient in isolation) Laboratory Data (last 24 hrs) 04/24/20 01:00: WBC 18.0 H D, Hgb 10.2 L, Hct 30.8 L D, Plt Count 366 D 04/24/20 01:00: Sodium 144, Potassium 5.6 H*, BUN 57 H, Creatinine 4.31 H, Glucose 135 H, Magnesium 2.4, Total Bilirubin 0.4, AST 28, ALT 33, Alkaline Phosphatase 43 L - Problems (1) Respiratory failure Current Visit: Yes Status: Acute Plan: Patient is 70 years of age was recently diagnosed with carranza virus infection discharged on prednisone returned again he is worse chest x-rays worse renal function is also got worse poly an element of volume overload hyperkalemia ache white count is also elevated continue with antibiotic steroids see may end up needing dialysis patient is on antibiotics started him on BiPAP anti coagulated patient Qualifiers: Chronicity: acute
--- NOTE | 2020-04-24 08:44 | RAD REPORT ---
EXAM DESCRIPTION: RAD - Chest Single View - 04/23/2020 10:18 pm CLINICAL HISTORY: Cough;COPD;Dyspnea Chest pain. COMPARISON: Abdomen 1 View (KUB) dated 04/14/2020; Chest Single View dated 04/10/2020; Chest Single Vie w dated 08/12/2018; Chest Single View dated 03/19/2017; Chest Abd Pelvis Wo Con dated 04/10/2020 FINDINGS: Portable technique limits examination quality. Extensive bilateral pulmonary opacities are noted in which may represent pneumonia or pulmonary edema . The heart is mildly enlarged in size. No displaced fractures.
[2020-04-24 08:54] LABS: Absolute Lymphocytes (CBC) 0.7 K/uL (0.7-4.9); Basophils % 1.2 % (0-1.3); MPV 8.2 fL (7.6-11.3); RBC Red Blood Cell Count 3.53 M/uL (4.33-5.43)
[2020-04-24] MEDS ORDERED: HEPARIN 5000 UNIT/ML 1 ML VIAL SQ SCH (09:00)
[2020-04-24] MEDS ORDERED: PNEUMOCOCCAL VACCINE 0.5 ML IMVAC ONE (09:00)
[2020-04-24 09:12] LABS: Potassium 5.1 mmol/L (3.5-5.1)
[2020-04-24] MEDS ORDERED: LORazepam 2 MG/ML VIAL IV ONE (09:59)
[2020-04-24] MEDS ORDERED: LORazepam 2 MG/ML VIAL ONE (10:11)
[2020-04-24] MEDS ORDERED: METOPROLOL TARTRATE 5 MG/5 ML INJ IV STA (10:12)
[2020-04-24] MEDS: ACETYLCYST 20% 800 MG/4 ML VIAL PO SCH ×2 (10:27→20:19)
[2020-04-24] MEDS: ENOXAPARIN 80 MG/0.8 ML SQ SCH (10:27)
[2020-04-24] MEDS ORDERED: FUROSEMIDE 40 MG/4 ML VIAL IV ONE (10:39)
[2020-04-24] MEDS ORDERED: ALBUMIN HUMAN 25% 200 ML IV ONE (10:40)
[2020-04-24] MEDS ORDERED: AMIODARONE HCL 150 MG in D5W 100 ML IV STA (11:30)
--- NOTE | 2020-04-24 11:49 | RAD REPORT ---
EXAM DESCRIPTION: RAD - Chest Single View - 04/24/2020 11:42 am CLINICAL HISTORY: SOB Chest pain. COMPARISON: Chest Single View dated 04/23/2020; Abdomen 1 View (KUB) dated 04/14/2020; Chest Single Vi ew dated 04/10/2020; Chest Single View dated 08/12/2018 FINDINGS: Portable technique limits examination quality. Mild improvement is seen in the moderate bilateral pulmonary opacities since comparative study. The h eart is moderately enlarged in size. No displaced fractures. IMPRESSION: Mild improvement in lung aeration since comparative study.
[2020-04-24] MEDS ORDERED: AMIODARONE HCL 450 MG in D5W 241 ML IV SCH (12:00)
[2020-04-24 12:16] LABS: Arterial Blood Carboxyhemoglob 1.1 % (0-1.5); Blood Gas Oxyhemoglobin 88.7 % (94-97); Blood O2 Saturation 90.7 % (92-98.5)
--- NOTE | 2020-04-24 17:01 | CON ---
Date of Consultation: 04/24/2020 Reason For Consultation: Atrial fibrillation. History Of Present Illness: This is a 70-year-old male with history of diabetes, hypertension, chron ic diastolic heart failure, chronic kidney disease, dyslipidemia, coronary artery disease, who was ad mitted to the hospital due to acute hypoxic respiratory failure. The patient was tested positive for COVID-19 recently and there was a concern for a COVID-19 pneumonia related and respiratory failure a s a result of that. The patient apparently was found to be in atrial fibrillation. His rate is cont rolled in the mid 80 and short of breath with cough. Past Medical History: As outlined above in the HPI. Medications: Refer to reconciliation sheet for detailed list. Allergies: NO KNOWN DRUG ALLERGIES. Family History: No premature coronary artery disease or cancer. Social History: Does not smoke or drink. Does not use any drugs. Review of Systems: All systems reviewed and were negative except for mentioned in HPI. Physical Examination: Vital Signs: Show temperature of 96.9, heart rate was between 150 and 160, and blood pressure is 144 /84, saturating 92% with oxygen. General: He is a middle-aged male, mildly short of breath. Head and Neck: Pupils are reactive to light. No cervical lymphadenopathy. Neck is supple. Thyroid is not enlarged. Lungs: Decreased breathing sounds with rhonchi bilaterally. No accessory muscle use or muscle retra ction. Heart: Irregularly irregular. No extra sounds. Abdomen: Soft, nontender. Bowel sounds positive. No organomegaly. No masses or hernia. No rigidi ty or rebound. Extremities: No clubbing, cyanosis. Intact pulses. Skin: No rash. Neurologic: Alert, awake. No acute focal deficit appreciated. Lymph nodes: No cervical or axillary lymphadenopathy. Investigations: Creatinine is 4.4, sodium 143 with BNP is 1619. White blood cell count 12,000, hemo globin 9.7. Assessment/plan And Recommendations: 1.Atrial fibrillation with rapid ventricular response. Recommend amiodarone load 150 mg/10 minutes and 1 mg/minute over the next 24 hours and re-evaluate. Obtain echocardiogram. The patient will nee d to be anticoagulated and this will be discussed with the patient once his active issues are control led and resolved pertaining to the COVID-19 infection. 2.COVID-19 related respiratory failure is being managed by Pulmonary and Hospitalist. 3.Hypertension. Blood pressure is borderline, but it will allow the use of beta-ramirez agents intr avenously if needed for rate control. If the amiodarone does not bring down the heart rate to a leticia rable level below 100 beats per minute. Thank you for the courtesy of this consultation. /YVROSE Voice ID: [id number] Report ID: [id number]
--- NOTE | 2020-04-24 21:44 | P.CNS ---
Chief Complaint: Shortness of breath, hypoxia. History of Present Illness: 70-year-old man with a history of chronic diastolic heart failure, chronic kidney disease and diabetes mellitus type 2 was brought to the emergency department due to progressive shortness of breath. Patient was noted to be hypoxic on room air and was placed on 6 L by EMS. He is currently maintained on 2-3 L of oxygen in the ED. He was hospitalized about 12 days ago for acute renal failure and bilateral pneumonia and tested positive for COVID. He was discharged with supplemental oxygen and oral Prednisone. Chest x-ray in the ED today demonstrated worsened bilateral opacities. Patient noted to be in moderate distress during my examination. He is admitted for further management of viral pneumonia with hypoxia. 21:43 This 70 yrs old Black Male presents to ER via EMS with complaints of Anxiety. deepak 21:43 The patient has shortness of breath at rest, with light activity. Onset: The deepak symptoms/episode began/occurred 2 day(s) ago. Duration: The symptoms are continuous, and are steadily getting worse. The patient's shortness of breath is aggravated by coughing, exertion, light activity, supine position. The patient or guardian reports cough, that is intermittent, difficulty breathing, flu symptoms, arthralgias, low-grade fever, myalgias, no appetite, hoarse voice. Modifying factors: The symptoms are alleviated by elevating head, remaining still, the symptoms are aggravated by activity, lying flat, talking. Severity of symptoms: At their worst the symptoms were mild moderate in the emergency department the symptoms are unchanged despite home interventions. Onset: The symptoms/episode began/occurred 2 week(s) ago. Allergies No Known Drug Allergies Allergy (Verified 04/24/20 05:18) Unknown Home Medications: Clopidogrel Bisulfate [Plavix*] 75 mg PO DAILY #30 tablet 12/17/16 Doxazosin [Cardura*] 8 mg PO BID 12/17/16 Insulin Detemir [Levemir Flextouch] 20 unit SQ DAILY 12/17/16 Hydralazine [Apresoline*] 100 mg PO BID 08/12/18 Amlodipine [Norvasc*] 5 mg PO DAILY #30 tab 04/15/20 Folic Acid 1 mg PO DAILY #30 tablet 04/15/20 Metoprolol Tartrate [Lopressor*] 50 mg PO BID 6AM 6PM #60 tab 04/15/20 Na Bicarb Tab [Sodium Bicarb 325 MG Tab*] 650 mg PO TIDWM #180 tab 04/15/20 Thiamine HCl [Vitamin B-1*] 100 mg PO DAILY #30 tablet 04/15/20 predniSONE [Deltasone*] 10 mg PO BID #14 tab 04/15/20 - Past Medical/Surgical History Diabetic: Yes -: Diabetes mellitus type 2, insulin-dependent -: HTN -: Chronic diastolic CHF -: Chronic renal disease, stage IV -: Hyperlipidemia -: CAD with prior DC -: Gout -: Difficulty hearing -: Cataract Sx-bilateral eyes Psychosocial/ Personal History: Patient is - Social History Smoking Status: Never smoker Alcohol use: No CD- Drugs: No Caffeine use: Yes Place of Residence: Home Physical Examination Temp Pulse Resp BP Pulse Ox 97.7 F 90 31 H 159/87 H 94 04/24/20 16:00 04/24/20 18:00 04/24/20 18:00 04/24/20 18:00 04/24/20 18:00 Laboratory Data (last 24 hrs) 04/24/20 01:00: WBC 18.0 H D, Hgb 10.2 L, Hct 30.8 L D, Plt Count 366 D 04/24/20 01:00: Sodium 144, Potassium 5.6 H*, BUN 57 H, Creatinine 4.31 H, Glucose 135 H, Magnesium 2.4, Total Bilirubin 0.4, AST 28, ALT 33, Alkaline Phosphatase 43 L Imagings Data: EXAM DESCRIPTION: RAD - Chest Single View - 04/24/2020 11:42 am CLINICAL HISTORY: SOB Chest pain. COMPARISON: Chest Single View dated 04/23/2020; Abdomen 1 View (KUB) dated 04/14/2020; Chest Single View dated 04/10/2020; Chest Single View dated 08/12/2018 FINDINGS: Portable technique limits examination quality. Mild improvement is seen in the moderate bilateral pulmonary opacities since comparative study. The heart is moderately enlarged in size. No displaced fractures. IMPRESSION: Mild improvement in lung aeration since comparative study. Conclusions/Impression: A/ KRISTEL likely CRS. Hyperkalemia Acidosis Hypocalcemia CKD IV with proteinuria HTN with CKD/ CHF. Diastolic CHF, A/C. DM II with CKD. Anemia in chronic illness. MINI/ Secondary HyperPTH. Severe malnutrition. Hypoalbuminemia. Acute hypoxic respiratory failure. COVID19. P/ Continue current POC and Medications. Continue furosemide to improve volume status. Continue bicarb. Bipap as needed. COVID protocol. Continue abx. Give Retacrit. Start Vitamin C. No NSAIDs. AM labs. Daily weight. Thank you kindly for the consultation. Greater than 30 min patient care. Case reviewed with Dr. Pagan. Critical Care: Yes
[2020-04-24] MEDS: HYDRALAZINE HCL 25 MG TABLET PO SCH (21:55)
[2020-04-24] MEDS ORDERED: DOXAZOSIN 2 MG TAB ONE (21:56)
[2020-04-24] MEDS: DOXAZOSIN 4 MG TAB PO SCH (21:57)
[2020-04-24] MEDS ORDERED: EPOETIN ALFA 10,000 UNIT/ML VIAL SQ ONE (22:00)
[2020-04-24] MEDS: ASCORBIC ACID 500 MG TABLET PO SCH (22:13)
[2020-04-24] MEDS ORDERED: NA CHLORIDE 0.9% 250 ML IV SCH (23:00)
[2020-04-25] MEDS: dexAMETHasone 10 MG/ML VIAL IV SCH (00:24)
[2020-04-25 05:07] LABS: Absolute Lymphocytes (CBC) 1.8 K/uL (0.7-4.9); Basophils % 0.5 % (0-1.3); Hematocrit 29.2 % (39.6-49.0); Lymphocytes % 9.5 % (15.3-44.8); MPV 8.2 fL (7.6-11.3); RBC Red Blood Cell Count 3.51 M/uL (4.33-5.43)
[2020-04-25 05:11] LABS: Protime INR 1.3
[2020-04-25 05:24] LABS: Magnesium 2.5 mg/dL (1.8-2.4); Phosphorus 5.1 mg/dL (2.5-4.9); Potassium 4.3 mmol/L (3.5-5.1); Uric Acid 10.2 mg/dL (3.5-7.2)
[2020-04-25] MEDS: METOPROLOL TAR 50 MG TAB PO SCH ×2 (05:27→17:02)
[2020-04-25 05:57] VITALS: BMI 32.2
--- NOTE | 2020-04-25 07:45 | P.PN ---
Subjective Date of Service: 04/25/20 Chief Complaint: Shortness of breath, hypoxia. Clinical condition better compared to yesterday. Patient remains slightly confused. His oxygen requirement has decreased a bit. He received convalescent plasma last night. He went into AFib yesterday. He was seen by cardiology and patient started on amiodarone drip. He has converted back to sinus rhythm. Physical Examination - Vital Signs Temperature: 98.2 F Blood Pressure: 153/92 Pulse: 76 Respirations: 27 Pulse Ox (%): 95 - Physical Exam General: In no apparent distress, Oriented x2 Respiratory: Crackles/rales (Bilateral) Cardiovascular: Regular rate/rhythm, Normal S1 S2 Gastrointestinal: Normal bowel sounds, Soft and benign, No tenderness Musculoskeletal: No erythema Neurological: Other (Nonfocal) Assessment And Plan - Current Problems (Diagnosis) (1) Viral pneumonia Current Visit: Yes Status: Acute (2) COVID-19 Current Visit: Yes Status: Acute (3) Chronic kidney disease (CKD), stage IV (severe) Onset Date: 12/16/16 Current Visit: No Status: Acute (4) Diabetes mellitus Onset Date: 08/14/18 Current Visit: No Status: Acute Qualifiers: Diabetes mellitus type: type 2 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 IV Lasix Monitor renal function closely. Pulmonary input appreciated. Nephrology input appreciated. Resume oral sodium bicarb. Transition amiodarone drip to oral amiodarone today Cardiology input appreciated. Dr. Ndiaye is following. Echocardiogram is pending. Monitor electrolytes. Chest physiotherapy. Insulin sliding scale for glucose management.
[2020-04-25] MEDS: FOLIC ACID 1 MG TABLET PO SCH (08:58)
[2020-04-25] MEDS: VITAMIN D 5,000 UNIT CAP PO SCH (08:58)
[2020-04-25] MEDS: dexAMETHasone 4 MG/ML VIAL IV SCH ×2 (08:58→16:29)
[2020-04-25] MEDS: AMLODIPINE 5 MG TAB PO SCH (08:58)
[2020-04-25] MEDS: ACETYLCYST 20% 800 MG/4 ML VIAL PO SCH ×2 (09:00→20:07)
[2020-04-25] MEDS: FUROSEMIDE 40 MG/4 ML VIAL IV SCH (09:01)
[2020-04-25] MEDS: DOXAZOSIN 4 MG TAB PO SCH ×2 (09:02→20:06)
[2020-04-25] MEDS: ENOXAPARIN 80 MG/0.8 ML SQ SCH (09:02)
[2020-04-25] MEDS: THIAMINE HCL 100 MG TABLET PO SCH (09:02)
[2020-04-25] MEDS: HYDRALAZINE HCL 25 MG TABLET PO SCH ×2 (09:02→20:06)
[2020-04-25] MEDS: CLOPIDOGREL 75 MG TABLET PO SCH (09:02)
[2020-04-25] MEDS: ASCORBIC ACID 500 MG TABLET PO SCH ×2 (09:02→21:05)
[2020-04-25] MEDS: CALCITROL 0.25 MCG CAP PO SCH (09:03)
[2020-04-25] MEDS: SODIUM BICARB 325 MG TAB PO SCH ×3 (09:04→16:30)
[2020-04-25] MEDS: COLCHICINE 0.6 MG TAB PO SCH (09:45)
--- NOTE | 2020-04-25 11:03 | P.PN ---
Subjective Date of Service: 04/25/20 Chief Complaint: Shortness of breath, hypoxia. Subjective: Improving (Patient is improving is on nasal cannula oxygen renal function for seen by Nephrology) Review of Systems Respiratory: Shortness of Breath Physical Examination - Vital Signs Temperature: 98.2 F Blood Pressure: 153/92 Pulse: 76 Respirations: 27 Pulse Ox (%): 95 - Physical Exam General: Other (Deferred) Assessment & Plan - Problems (Diagnosis) (1) Respiratory failure Current Visit: Yes Status: Acute Plan: Patient admitted with respiratory failure he also has renal failure on nasal cannula oxygen continue to monitor stable discharge tomorrow on oxygen continue with steroid patient has significant interstitial changes doubt bacterial infection Dc levofloxacin possible interaction with amiodarone Qualifiers: Chronicity: acute
[2020-04-25] MEDS: CEFTRIAXONE/SWI 1gm 1 GM/10 ML SYR IV SCH (11:23)
[2020-04-25] MEDS: MULTIVITAMIN TAB PO SCH (13:07)
[2020-04-25] MEDS ORDERED: HYDRALAZINE HCL 20 MG/ML VIAL IV PRN (17:17)
[2020-04-25] MEDS: BUDESONIDE 0.5 MG/2 ML NEB NEB SCH ×2 (17:59→19:50)
--- NOTE | 2020-04-25 19:09 | PN ---
Date of Progress Note: 04/25/2020 Subjective: Mr. Peraza was seen by Dr. Ndiaye yesterday for new onset atrial fibrillation. Mr. Stephanie reed is in the hospital for viral pneumonia. He is COVID positive. His white count is 19,000. He als o has acute renal failure with a creatinine of 4.71. Yesterday, he went into a rapid atrial fibrilla tion. He was hypoxic. We start him on IV amiodarone. This morning, he is in normal rhythm. He is also on Lovenox, metoprolol, and hydralazine. Blood pressure is better controlled. Nephrology consu ltation is pending. Echocardiogram, which was done today, was normal without any wall motion abnorma lities or effusion or valvular heart disease. I think Mr. Peraza's atrial fibrillation is secondary to his hypoxia, renal failure, and his overall illness. I would prefer we do not keep him on amiodar one considering his pulmonary status and renal status. I would prefer we use metoprolol, which he is on at 50 mg b.i.d. If he goes back into atrial fibrillation, we will readdress that issue then. PUJA/VERÓNICAL Voice ID: [id number] Report ID: [id number]
--- NOTE | 2020-04-25 22:20 | P.PN ---
Date of Service: 04/25/20 Vital Signs Temp Pulse Resp BP Pulse Ox 98.8 F 83 30 H 162/84 H 94 04/25/20 20:00 04/25/20 21:00 04/25/20 21:00 04/25/20 21:00 04/25/20 21:00 Medications Acetaminophen (Tylenol -Extra Strength) 500 mg PO Q4HP PRN PRN Reason: TEMP > 100' F Stop: 05/24/20 04:06 Amlodipine Besylate (Norvasc) 5 mg PO DAILY YEIM Stop: 05/25/20 09:01 Last Admin: 04/25/20 08:58 Dose: 5 mg Documented by: Ascorbic Acid (Vitamin C) 500 mg PO Q12H YEMI Stop: 05/24/20 22:01 Last Admin: 04/25/20 21:05 Dose: 500 mg Documented by: Budesonide (Pulmicort) 0.5 mg NEB BIDRESP YEMI Stop: 05/25/20 18:00 Last Admin: 04/25/20 17:59 Dose: Not Given Documented by: Calcitriol (Rocaltrol) 0.5 mcg PO DAILY YEMI Stop: 05/25/20 09:01 Last Admin: 04/25/20 09:03 Dose: 0.5 mcg Documented by: Cholecalciferol (Vitamin D 5,000 Iu Cap) 5,000 unit PO DAILY YEMI Stop: 05/25/20 09:01 Last Admin: 04/25/20 08:58 Dose: 5,000 unit Documented by: Clopidogrel Bisulfate (Plavix) 75 mg PO DAILY YEMI Stop: 05/25/20 09:01 Last Admin: 04/25/20 09:02 Dose: 75 mg Documented by: Colchicine (Colcrys) 0.6 mg PO DAILY YEMI Stop: 05/25/20 09:31 Last Admin: 04/25/20 09:45 Dose: 0.6 mg Documented by: Dexamethasone (Decadron) 2 mg IV Q8HR YEMI Stop: 05/25/20 09:01 Last Admin: 04/25/20 16:29 Dose: 2 mg Documented by: Doxazosin Mesylate (Cardura) 8 mg PO BID YEMI Stop: 05/24/20 21:01 Last Admin: 04/25/20 20:06 Dose: 8 mg Documented by: Enoxaparin Sodium (Lovenox 80 Mg Inj) 80 mg SQ DAILY [facility] Stop: 05/24/20 09:01 Last Admin: 04/25/20 09:02 Dose: 80 mg Documented by: Folic Acid (Folic Acid) 1 mg PO DAILY YEMI Stop: 05/25/20 09:01 Last Admin: 04/25/20 08:58 Dose: 1 mg Documented by: Furosemide (Lasix) 40 mg IV DAILY [facility] Stop: 05/24/20 09:01 Last Admin: 04/25/20 09:01 Dose: 40 mg Documented by: Hydralazine HCl (Apresoline) 100 mg PO BID [facility] Stop: 05/24/20 21:01 Last Admin: 04/25/20 20:06 Dose: 100 mg Documented by: Hydralazine HCl (Apresoline) 10 mg IV Q4HP PRN PRN Reason: FOR SBP>160 OR DBP>100 MMHG Stop: 05/25/20 17:18 Last Admin: 04/25/20 17:35 Dose: 10 mg Documented by: Sodium Chloride (Sodium Chloride) 250 mls @ 0 mls/hr IV .Q0M [facility] Stop: 05/24/20 23:01 Last Admin: 04/24/20 23:02 Dose: 250 mls Documented by: Ceftriaxone Sodium/Sodium Chloride (Rocephin 1 Gm/10 Ml Swi Ivp) 1 gm in 10 mls @ 600 mls/hr IV DAILY [facility]; Protocol Stop: 05/25/20 12:01 Last Admin: 04/25/20 11:23 Dose: 10 mls Documented by: Metoprolol Tartrate (Lopressor) 50 mg PO BID 6AM 6PM [facility] Stop: 05/25/20 06:01 Last Admin: 04/25/20 17:02 Dose: 50 mg Documented by: Multivitamins/Minerals (Centrum Tablet) 1 tab PO DAILY [facility] Stop: 05/25/20 09:01 Last Admin: 04/25/20 13:07 Dose: 1 tab Documented by: Ondansetron HCl (Zofran) 4 mg IV Q6HP PRN PRN Reason: NAUSEA / VOMITING Stop: 05/24/20 04:06 Sodium Bicarbonate (Sodium Bicarb 325 Mg) 650 mg PO TIDWM [facility] Stop: 05/25/20 08:01 Last Admin: 04/25/20 16:30 Dose: 650 mg Documented by: Sodium Chloride (Normal Saline Flush) 10 ml IV BID [facility] Stop: 05/24/20 09:01 Last Admin: 04/25/20 20:06 Dose: 10 ml Documented by: Thiamine HCl (Vitamin B-1) 100 mg PO DAILY [facility] Stop: 05/25/20 09:01 Last Admin: 04/25/20 09:02 Dose: 100 mg Documented by: Microbiology Results 04/24/20 00:18 Blood - Blood Aerobic Blood Culture - Preliminary No growth in 24 hours. 04/24/20 00:18 Blood - Blood Anaerobic Blood Culture - Preliminary No growth in 24 hours. 04/23/20 23:50 Blood - Blood Aerobic Blood Culture - Preliminary No growth in 24 hours. 04/23/20 23:50 Blood - Blood Anaerobic Blood Culture - Preliminary No growth in 24 hours. Assessment/ Plan: Nephrology CPS improving without CP. +Dyspnea. Good urine output. No acute events overnight. Vitals, medications, blood work and imaging reviewed in the chart. Mild resp distress. MMM. Neck supple. Diminished bases. RRR. Soft Abd. No C/C/E. No rash. Awake. Minimal Speech. Brennan with light urine. Laboratory Data (last 24 hrs) 04/24/20 01:00: WBC 18.0 H D, Hgb 10.2 L, Hct 30.8 L D, Plt Count 366 D 04/24/20 01:00: Sodium 144, Potassium 5.6 H*, BUN 57 H, Creatinine 4.31 H, Glucose 135 H, Magnesium 2.4, Total Bilirubin 0.4, AST 28, ALT 33, Alkaline Phosphatase 43 L Imagings Data: EXAM DESCRIPTION: RAD - Chest Single View - 04/24/2020 11:42 am CLINICAL HISTORY: SOB Chest pain. COMPARISON: Chest Single View dated 04/23/2020; Abdomen 1 View (KUB) dated 04/14/2020; Chest Single View dated 04/10/2020; Chest Single View dated 08/12/2018 FINDINGS: Portable technique limits examination quality. Mild improvement is seen in the moderate bilateral pulmonary opacities since comparative study. The heart is moderately enlarged in size. No displaced fractures. IMPRESSION: Mild improvement in lung aeration since comparative study. Conclusions/Impression: A/ KRISTEL likely CRS. Hypernatremia. Hyperkalemia Acidosis Hypocalcemia CKD IV with proteinuria HTN with CKD/ CHF. Diastolic CHF, A/C. DM II with CKD. Anemia in chronic illness. MINI/ Secondary HyperPTH. Severe malnutrition. Hypoalbuminemia. Acute hypoxic respiratory failure. COVID19. P/ Continue current POC and Medications. Continue furosemide to improve volume status. No fluid restriction at this time. Continue bicarb. Bipap as needed. COVID protocol. Continue abx. Give Retacrit PRN. Consider PT. No NSAIDs. AM labs. Daily weight.
[2020-04-26] MEDS: dexAMETHasone 4 MG/ML VIAL IV SCH ×3 (00:38→17:31)
[2020-04-26 05:19] LABS: Absolute Lymphocytes (CBC) 1.5 K/uL (0.7-4.9); Basophils % 0.3 % (0-1.3); Hematocrit 29.6 % (39.6-49.0); Lymphocytes % 11.3 % (15.3-44.8); MPV 8.4 fL (7.6-11.3); RBC Red Blood Cell Count 3.62 M/uL (4.33-5.43)
[2020-04-26] MEDS: METOPROLOL TAR 50 MG TAB PO SCH ×2 (05:23→17:31)
[2020-04-26 05:26] LABS: Potassium 4.4 mmol/L (3.5-5.1)
[2020-04-26] MEDS ORDERED: Levofloxacin500mg IV 500 MG/100 ML BAG IV SCH (06:00)
--- NOTE | 2020-04-26 07:59 | P.PN ---
Subjective Date of Service: 04/26/20 Chief Complaint: Shortness of breath, hypoxia. Nurse report patient was short of breath last night. He is maintained on 2 L of oxygen by nasal cannula. Afebrile. Physical Examination - Vital Signs Temperature: 98.3 F Blood Pressure: 162/86 Pulse: 77 Respirations: 38 Pulse Ox (%): 94 - Physical Exam General: Alert, Oriented x3, Mild distress HEENT: Mucous membr. moist/pink, Sclerae nonicteric Neck: JVD not distended Respiratory: Crackles/rales (Bilateral) Cardiovascular: No edema, Regular rate/rhythm, Normal S1 S2 Gastrointestinal: Normal bowel sounds, Soft and benign, No tenderness Integumentary: No rashes Assessment And Plan - Current Problems (Diagnosis) (1) Viral pneumonia Current Visit: Yes Status: Acute (2) COVID-19 Current Visit: Yes Status: Acute (3) Chronic kidney disease (CKD), stage IV (severe) Onset Date: 12/16/16 Current Visit: No Status: Acute (4) Diabetes mellitus Onset Date: 08/14/18 Current Visit: No Status: Acute Qualifiers: Diabetes mellitus type: type 2 Diabetes mellitus senior living insulin use: with senior living use Diabetes mellitus complication status: with unspecified complications (5) Essential (primary) hypertension Onset Date: 12/16/16 Current Visit: No Status: Acute (6) Hyperkalemia Current Visit: Yes Status: Acute - Plan Continue IV Dexamethasone Status post convalescent plasma administration. Creatinine is creeping up slowly Blood cultures and urine culture shows no growth. Monitor renal function closely. IV Lasix per nephrology Titrate oxygen. Resume oral sodium bicarb. Amiodarone discontinued. Patient is on metoprolol b.i.d. Cardiology is following. Echocardiogram is pending. Monitor electrolytes. Insulin sliding scale for glucose management.
[2020-04-26] MEDS: BUDESONIDE 0.5 MG/2 ML NEB NEB SCH ×2 (09:10→19:35)
[2020-04-26] MEDS: CLOPIDOGREL 75 MG TABLET PO SCH (09:12)
[2020-04-26] MEDS: THIAMINE HCL 100 MG TABLET PO SCH (09:12)
[2020-04-26] MEDS: AMLODIPINE 5 MG TAB PO SCH ×2 (09:12→22:36)
[2020-04-26] MEDS: VITAMIN D 5,000 UNIT CAP PO SCH (09:12)
[2020-04-26] MEDS: ASCORBIC ACID 500 MG TABLET PO SCH ×2 (09:12→22:38)
[2020-04-26] MEDS: FUROSEMIDE 40 MG/4 ML VIAL IV SCH (09:13)
[2020-04-26] MEDS: FOLIC ACID 1 MG TABLET PO SCH (09:13)
[2020-04-26] MEDS: CEFTRIAXONE/SWI 1gm 1 GM/10 ML SYR IV SCH (09:15)
[2020-04-26] MEDS: ENOXAPARIN 80 MG/0.8 ML SQ SCH (09:15)
[2020-04-26] MEDS: HYDRALAZINE HCL 25 MG TABLET PO SCH ×2 (09:15→22:38)
[2020-04-26] MEDS: MULTIVITAMIN TAB PO SCH (09:16)
[2020-04-26] MEDS: DOXAZOSIN 4 MG TAB PO SCH ×2 (09:18→22:37)
[2020-04-26] MEDS: COLCHICINE 0.6 MG TAB PO SCH (09:19)
[2020-04-26] MEDS: SODIUM BICARB 325 MG TAB PO SCH ×3 (09:19→17:30)
[2020-04-26] MEDS: CALCITROL 0.25 MCG CAP PO SCH (09:19)
--- NOTE | 2020-04-26 09:33 | P.PN ---
Date of Service: 04/26/20 Vital Signs Temp Pulse Resp BP Pulse Ox 98.3 F 57 39 H 183/94 H 93 04/26/20 07:59 04/26/20 09:12 04/26/20 08:00 04/26/20 09:18 04/26/20 08:00 Medications Acetaminophen (Tylenol -Extra Strength) 500 mg PO Q4HP PRN PRN Reason: TEMP > 100' F Stop: 05/24/20 04:06 Amlodipine Besylate (Norvasc) 5 mg PO DAILY [facility]I Stop: 05/25/20 09:01 Last Admin: 04/26/20 09:12 Dose: 5 mg Documented by: Ascorbic Acid (Vitamin C) 500 mg PO Q12H [facility]EMI Stop: 05/24/20 22:01 Last Admin: 04/26/20 09:12 Dose: 500 mg Documented by: Budesonide (Pulmicort) 0.5 mg NEB BIDRESP YEMI Stop: 05/25/20 18:00 Last Admin: 04/25/20 19:50 Dose: 0.5 mg Documented by: Calcitriol (Rocaltrol) 0.5 mcg PO DAILY YEMI Stop: 05/25/20 09:01 Last Admin: 04/26/20 09:19 Dose: 0.5 mcg Documented by: Cholecalciferol (Vitamin D 5,000 Iu Cap) 5,000 unit PO DAILY [facility]EMI Stop: 05/25/20 09:01 Last Admin: 04/26/20 09:12 Dose: 5,000 unit Documented by: Clopidogrel Bisulfate (Plavix) 75 mg PO DAILY [facility]I Stop: 05/25/20 09:01 Last Admin: 04/26/20 09:12 Dose: 75 mg Documented by: Colchicine (Colcrys) 0.6 mg PO DAILY [facility]I Stop: 05/25/20 09:31 Last Admin: 04/26/20 09:19 Dose: 0.6 mg Documented by: Dexamethasone (Decadron) 2 mg IV Q8HR YEMI Stop: 05/25/20 09:01 Last Admin: 04/26/20 09:13 Dose: 2 mg Documented by: Doxazosin Mesylate (Cardura) 8 mg PO BID [facility]I Stop: 05/24/20 21:01 Last Admin: 04/26/20 09:18 Dose: 8 mg Documented by: Enoxaparin Sodium (Lovenox 80 Mg Inj) 80 mg SQ DAILY [facility] Stop: 05/24/20 09:01 Last Admin: 04/26/20 09:15 Dose: 80 mg Documented by: Folic Acid (Folic Acid) 1 mg PO DAILY YEMI Stop: 05/25/20 09:01 Last Admin: 04/26/20 09:13 Dose: 1 mg Documented by: Furosemide (Lasix) 40 mg PO DAILY [facility] Stop: 05/27/20 09:01 Hydralazine HCl (Apresoline) 100 mg PO BID [facility] Stop: 05/24/20 21:01 Last Admin: 04/26/20 09:15 Dose: 100 mg Documented by: Hydralazine HCl (Apresoline) 10 mg IV Q4HP PRN PRN Reason: FOR SBP>160 OR DBP>100 MMHG Stop: 05/25/20 17:18 Last Admin: 04/25/20 17:35 Dose: 10 mg Documented by: Sodium Chloride (Sodium Chloride) 250 mls @ 0 mls/hr IV .Q0M [facility] Stop: 05/24/20 23:01 Last Admin: 04/24/20 23:02 Dose: 250 mls Documented by: Ceftriaxone Sodium/Sodium Chloride (Rocephin 1 Gm/10 Ml Swi Ivp) 1 gm in 10 mls @ 600 mls/hr IV DAILY [facility]; Protocol Stop: 05/25/20 12:01 Last Admin: 04/26/20 09:15 Dose: 10 mls Documented by: Metoprolol Tartrate (Lopressor) 50 mg PO BID 6AM 6PM [facility] Stop: 05/25/20 06:01 Last Admin: 04/26/20 05:23 Dose: 50 mg Documented by: Multivitamins/Minerals (Centrum Tablet) 1 tab PO DAILY [facility] Stop: 05/25/20 09:01 Last Admin: 04/26/20 09:16 Dose: 1 tab Documented by: Ondansetron HCl (Zofran) 4 mg IV Q6HP PRN PRN Reason: NAUSEA / VOMITING Stop: 05/24/20 04:06 Sodium Bicarbonate (Sodium Bicarb 325 Mg) 650 mg PO TIDWM [facility] Stop: 05/25/20 08:01 Last Admin: 04/26/20 09:19 Dose: 650 mg Documented by: Sodium Chloride (Normal Saline Flush) 10 ml IV BID [facility] Stop: 05/24/20 09:01 Last Admin: 04/26/20 09:20 Dose: 10 ml Documented by: Thiamine HCl (Vitamin B-1) 100 mg PO DAILY [facility]I Stop: 05/25/20 09:01 Last Admin: 04/26/20 09:12 Dose: 100 mg Documented by: Microbiology Results 04/24/20 00:18 Blood - Blood Aerobic Blood Culture - Preliminary No growth in 24 hours. 04/24/20 00:18 Blood - Blood Anaerobic Blood Culture - Preliminary No growth in 24 hours. 04/23/20 23:50 Blood - Blood Aerobic Blood Culture - Preliminary No growth in 24 hours. 04/23/20 23:50 Blood - Blood Anaerobic Blood Culture - Preliminary No growth in 24 hours. Assessment/ Plan: Nephrology CPS improving without CP or SOB. +HOPKINS Good urine output. BL toe pain. No acute events overnight. Vitals, medications, blood work and imaging reviewed in the chart. Mild resp distress. MMM. Neck supple. Diminished bases. RRR. Soft Abd. No C/C/E. No rash. Awake. Minimal Speech. Brennan with light urine. Laboratory Data (last 24 hrs) 04/24/20 01:00: WBC 18.0 H D, Hgb 10.2 L, Hct 30.8 L D, Plt Count 366 D 04/24/20 01:00: Sodium 144, Potassium 5.6 H*, BUN 57 H, Creatinine 4.31 H, Glucose 135 H, Magnesium 2.4, Total Bilirubin 0.4, AST 28, ALT 33, Alkaline Phosphatase 43 L Imagings Data: EXAM DESCRIPTION: RAD - Chest Single View - 04/24/2020 11:42 am CLINICAL HISTORY: SOB Chest pain. COMPARISON: Chest Single View dated 04/23/2020; Abdomen 1 View (KUB) dated 04/14/2020; Chest Single View dated 04/10/2020; Chest Single View dated 08/12/2018 FINDINGS: Portable technique limits examination quality. Mild improvement is seen in the moderate bilateral pulmonary opacities since comparative study. The heart is moderately enlarged in size. No displaced fractures. IMPRESSION: Mild improvement in lung aeration since comparative study. Conclusions/Impression: A/ KRISTEL likely CRS. Hypernatremia. Hyperkalemia Acidosis Hypocalcemia CKD IV with proteinuria HTN with CKD/ CHF. Diastolic CHF, A/C. DM II with CKD. Anemia in chronic illness. MINI/ Secondary HyperPTH. Gout. Severe malnutrition. Hypoalbuminemia. Acute hypoxic respiratory failure. COVID19. P/ Continue current POC and Medications. Reduce Lasix 40mg PO. No fluid restriction at this time. Inrease Amlodipine BID. Start Allopurinol for gout. Continue bicarb. Bipap as needed. COVID protocol. Continue abx. Give Retacrit PRN. Consider PT. No NSAIDs. AM labs. Daily weight. Case reviewed with Dr. Pagan
--- NOTE | 2020-04-26 09:40 | PN ---
Date of Progress Note: 04/26/2020 Subjective: Mr. Peraza had come in with a viral pneumonia, elevated white count, renal acute failure , and hypertension. He has chronic diastolic congestive heart failure, hypertension, diabetes, dysli pidemia, history of coronary artery disease. He has been seen by Nephrology that have recommended bi carbonate, BiPAP as needed, vitamin C, otherwise continuing his present regimen. His present medicat ion includes Norvasc, Plavix, colchicine, Cardura, Lasix, hydralazine, metoprolol. He is also on ant ibiotics and steroids. His creatinine today is 4.92. His white count of 13,000. I had taken him of f amiodarone yesterday because of resolution of atrial fibrillation. He is on metoprolol 50 b.i.d., he remains in sinus rhythm. I will sign off his case for now. Continue metoprolol and continue pres ent regimen. If he goes back into atrial fibrillation, we will deal with that later. PUJA/YVROSE Voice ID: [id number] Report ID: [id number]
--- NOTE | 2020-04-26 09:59 | P.PN ---
Subjective Date of Service: 04/26/20 (Telephone Visit) Chief Complaint: Resp failure O2 stable Still tachypneic Physical Examination - Vital Signs Temperature: 98.3 F Blood Pressure: 183/94 Pulse: 57 Respirations: 39 Pulse Ox (%): 93 Assessment & Plan - Problems (Diagnosis) (1) Respiratory failure Current Visit: Yes Status: Acute Plan: O2. Stable. Poss D/C home when okay with RenalBP elevated/Assess RA Sat Qualifiers: Chronicity: acute
--- NOTE | 2020-04-26 11:53 | P.PN ---
Subjective Date of Service: 04/26/20 Chief Complaint: Resp failure Subjective: No new changes Review of Systems 10-point ROS is otherwise unremarkable Physical Examination - Vital Signs Temperature: 98.3 F Blood Pressure: 183/94 Pulse: 57 Respirations: 39 Pulse Ox (%): 93 - Physical Exam General: Alert, Mild distress HEENT: Atraumatic, Normocephalic Neck: Supple Respiratory: Diminished, Crackles/rales Cardiovascular: Regular rate/rhythm, Normal S1 S2, Edema Capillary refill: <2 Seconds Gastrointestinal: Soft and benign, W/out hepatosplenomegaly Musculoskeletal: No clubbing, Swelling Integumentary: No rashes Neurological: Normal speech, Normal strength at 5/5 x4 extr Lymphatics: No axilla or inguinal lymphadenopathy Assessment & Plan - Problems (Diagnosis) (1) COVID-19 Current Visit: Yes Status: Acute (2) Respiratory failure Current Visit: Yes Status: Acute Qualifiers: Chronicity: acute (3) Viral pneumonia Current Visit: Yes Status: Acute (4) Acute kidney failure Current Visit: No Status: Acute (5) Chronic kidney disease (CKD), stage IV (severe) Onset Date: 12/16/16 Current Visit: No Status: Acute (6) Diabetes mellitus Onset Date: 08/14/18 Current Visit: No Status: Acute Qualifiers: Diabetes mellitus type: type 2 Diabetes mellitus intermission coordinator insulin use: with intermission coordinator use Diabetes mellitus complication status: with unspecified complications (7) Essential (primary) hypertension Onset Date: 12/16/16 Current Visit: No Status: Chronic (8) Gout Onset Date: 08/14/18 Current Visit: No Status: Chronic (9) Hyperlipidemia Onset Date: 08/14/18 Current Visit: No Status: Chronic Physician Review Additional Text: Continue IV Dexamethasone Status post convalescent plasma administration. Creatinine is creeping up slowly Blood cultures and urine culture shows no growth. Monitor renal function closely. IV Lasix per nephrology Titrate oxygen. Resume oral sodium bicarb. Amiodarone discontinued. Patient is on metoprolol b.i.d. Cardiology is following. Echocardiogram is pending. Monitor electrolytes. Insulin sliding scale for glucose management. 04/26/2020 Monitor closely in ICU Appreciate help from consultants AFib with RVR resolved Heart rate controlled well Stopped amiodarone drip, continue beta blockers Appreciate help from cardiology COVID 19 pneumonia Continue steroids Status post convalescent plasma Appreciate help from pulmonology Monitor closely Acute hypoxic respiratory failure due to covid 19 pneumonia Will try to wean off oxygen monitor closely under telemetry Pulmicort neb Appreciate help from pulmonology Acute kidney injury on CKD stage 4 Appreciate help from nephrology Patient on Lasix Monitor renal parameters Monitor electrolytes and correct accordingly Optimize Lasix doses Diabetes : Continue home medications and insulin sliding scale Hypertension : Titrate antihypertensives Hyperlipidemia : Continue home medications Disposition : Patient improving well Will try to wean off oxygen requirement Monitor renal parameters Possible Dc once home O2 sat range and cleared by nephrology and pulmonology Need follow up with cardiology as outpatient Time Spent Managing Pts Care (In Minutes): 45
[2020-04-26] MEDS: allopurinoL 100 MG TAB PO SCH ×2 (11:54→22:36)
[2020-04-27] MEDS: dexAMETHasone 4 MG/ML VIAL IV SCH ×3 (00:51→17:22)
[2020-04-27 05:46] LABS: Absolute Lymphocytes (CBC) 1.2 K/uL (0.7-4.9); Basophils % 0.9 % (0-1.3); Hematocrit 30.8 % (39.6-49.0); Lymphocytes % 9.8 % (15.3-44.8); MPV 8.2 fL (7.6-11.3); RBC Red Blood Cell Count 3.73 M/uL (4.33-5.43)
[2020-04-27] MEDS: METOPROLOL TAR 50 MG TAB PO SCH ×2 (05:49→17:21)
[2020-04-27 06:07] LABS: Potassium 4.5 mmol/L (3.5-5.1)
[2020-04-27] MEDS: SODIUM BICARB 325 MG TAB PO SCH ×3 (08:00→17:21)
[2020-04-27] MEDS: DOXAZOSIN 4 MG TAB PO SCH ×2 (08:00→19:54)
[2020-04-27] MEDS: CALCITROL 0.25 MCG CAP PO SCH (08:01)
[2020-04-27] MEDS: MULTIVITAMIN TAB PO SCH (08:01)
[2020-04-27] MEDS: VITAMIN D 5,000 UNIT CAP PO SCH (08:01)
[2020-04-27] MEDS: AMLODIPINE 5 MG TAB PO SCH ×2 (08:01→19:55)
[2020-04-27] MEDS: HYDRALAZINE HCL 25 MG TABLET PO SCH ×2 (08:01→19:54)
[2020-04-27] MEDS: COLCHICINE 0.6 MG TAB PO SCH (08:01)
[2020-04-27] MEDS: ASCORBIC ACID 500 MG TABLET PO SCH ×2 (08:01→19:57)
[2020-04-27] MEDS: allopurinoL 100 MG TAB PO SCH ×2 (08:01→19:55)
[2020-04-27] MEDS: THIAMINE HCL 100 MG TABLET PO SCH (08:01)
[2020-04-27] MEDS: CLOPIDOGREL 75 MG TABLET PO SCH (08:02)
[2020-04-27] MEDS: FUROSEMIDE 40 MG TABLET PO SCH (08:02)
[2020-04-27] MEDS: ENOXAPARIN 80 MG/0.8 ML SQ SCH (08:02)
[2020-04-27] MEDS: FOLIC ACID 1 MG TABLET PO SCH (08:02)
[2020-04-27] MEDS: CEFTRIAXONE/SWI 1gm 1 GM/10 ML SYR IV SCH (08:02)
[2020-04-27] MEDS: BUDESONIDE 0.5 MG/2 ML NEB NEB SCH ×2 (09:05→20:38)
--- NOTE | 2020-04-27 09:58 | P.PN ---
Subjective Date of Service: 04/27/20 Chief Complaint: Resp failure Subjective: No new changes, Improving, Other (Feeling better) Review of Systems 10-point ROS is otherwise unremarkable Physical Examination - Vital Signs Temperature: 98.1 F Blood Pressure: 157/94 Pulse: 59 Respirations: 20 Pulse Ox (%): 94 - Physical Exam General: Alert, In no apparent distress HEENT: Atraumatic, Normocephalic Neck: Supple Respiratory: Diminished, Crackles/rales Cardiovascular: Normal pulses, Regular rate/rhythm, Normal S1 S2 Capillary refill: <2 Seconds Gastrointestinal: Soft and benign, W/out hepatosplenomegaly Musculoskeletal: No clubbing, Other (Swelling is improving) Integumentary: No rashes, No breakdown Neurological: Normal speech, Normal strength at 5/5 x4 extr Lymphatics: No axilla or inguinal lymphadenopathy Assessment & Plan - Problems (Diagnosis) (1) COVID-19 Current Visit: Yes Status: Acute (2) Respiratory failure Current Visit: Yes Status: Acute Qualifiers: Chronicity: acute (3) Viral pneumonia Current Visit: Yes Status: Acute (4) Acute kidney failure Current Visit: No Status: Acute (5) Chronic kidney disease (CKD), stage IV (severe) Onset Date: 12/16/16 Current Visit: No Status: Acute (6) Diabetes mellitus Onset Date: 08/14/18 Current Visit: No Status: Acute Qualifiers: Diabetes mellitus type: type 2 Diabetes mellitus usp insulin use: with usp use Diabetes mellitus complication status: with unspecified complications (7) Essential (primary) hypertension Onset Date: 12/16/16 Current Visit: No Status: Chronic (8) Gout Onset Date: 08/14/18 Current Visit: No Status: Chronic (9) Hyperlipidemia Onset Date: 08/14/18 Current Visit: No Status: Chronic Physician Review Additional Text: COVID 19 pneumonia Continue steroids Status post convalescent plasma Appreciate help from pulmonology Monitor closely Blood cultures and urine culture shows no growth. Acute hypoxic respiratory failure due to covid 19 pneumonia Will try to wean down oxygen monitor closely under telemetry Pulmicort neb Appreciate help from pulmonology Continue IV Dexamethasone Status post convalescent plasma administration. Acute kidney injury on CKD stage 4 Appreciate help from nephrology Patient on Lasix Monitor renal parameters Monitor electrolytes and correct accordingly Optimize Lasix doses Creatinine is still high, Monitor renal function closely. Resume oral sodium bicarb. AFib with RVR resolved Heart rate controlled well Stopped amiodarone drip, continue beta blockers Appreciate help from cardiology Diabetes : Continue home medications and insulin sliding scale Hypertension : Titrate antihypertensives Hyperlipidemia : Continue home medications Disposition : Patient improving well Will try to wean down oxygen requirement Monitor renal parameters Possible Dc once home O2 sat range and cleared by nephrology and pulmonology Need follow up with cardiology as outpatient Possible transfer out of ICU to tele Time Spent Managing Pts Care (In Minutes): 45
--- NOTE | 2020-04-27 12:46 | P.PN ---
Subjective Date of Service: 04/27/20 Chief Complaint: Resp failure Patient is doing better satting satisfactory 94% on 1 L of oxygen the little tachypneic Physical Examination - Vital Signs Temperature: 98.1 F Blood Pressure: 157/94 Pulse: 59 Respirations: 20 Pulse Ox (%): 94 Assessment & Plan - Problems (Diagnosis) (1) Respiratory failure Current Visit: Yes Status: Acute Plan: Patient's condition is rare stable requiring minimal oxygen recommend discharge on prednisone 20 mg twice a day for a week white count is declining cultures negative recommend continuing oral supplementation with vitamin-C and melatonin 3 mg at night and and aspirin Qualifiers: Chronicity: acute Physician Review Additional Text: COVID 19 pneumonia Continue steroids Status post convalescent plasma Appreciate help from pulmonology Monitor closely Blood cultures and urine culture shows no growth. Acute hypoxic respiratory failure due to covid 19 pneumonia Will try to wean down oxygen monitor closely under telemetry Pulmicort neb Appreciate help from pulmonology Continue IV Dexamethasone Status post convalescent plasma administration. Acute kidney injury on CKD stage 4 Appreciate help from nephrology Patient on Lasix Monitor renal parameters Monitor electrolytes and correct accordingly Optimize Lasix doses Creatinine is still high, Monitor renal function closely. Resume oral sodium bicarb. AFib with RVR resolved Heart rate controlled well Stopped amiodarone drip, continue beta blockers Appreciate help from cardiology Diabetes : Continue home medications and insulin sliding scale Hypertension : Titrate antihypertensives Hyperlipidemia : Continue home medications Disposition : Patient improving well Will try to wean down oxygen requirement Monitor renal parameters Possible Dc once home O2 sat range and cleared by nephrology and pulmonology Need follow up with cardiology as outpatient Possible transfer out of ICU to tele
[2020-04-28] MEDS: dexAMETHasone 4 MG/ML VIAL IV SCH ×3 (00:04→17:22)
[2020-04-28 05:28] VITALS: TEMP 97.8
[2020-04-28] MEDS: METOPROLOL TAR 50 MG TAB PO SCH ×2 (05:29→17:22)
[2020-04-28 06:41] LABS: Absolute Lymphocytes (CBC) 1.9 K/uL (0.7-4.9); Hematocrit 32.7 % (39.6-49.0); MPV 8.4 fL (7.6-11.3); RBC Red Blood Cell Count 3.97 M/uL (4.33-5.43)
[2020-04-28 06:48] LABS: Phosphorus 4.8 mg/dL (2.5-4.9); Potassium 4.6 mmol/L (3.5-5.1)
[2020-04-28] MEDS: AMLODIPINE 5 MG TAB PO SCH (08:20)
[2020-04-28] MEDS: allopurinoL 100 MG TAB PO SCH (08:21)
[2020-04-28] MEDS: SODIUM BICARB 325 MG TAB PO SCH ×3 (08:21→17:23)
[2020-04-28] MEDS: MULTIVITAMIN TAB PO SCH (08:21)
[2020-04-28] MEDS: FOLIC ACID 1 MG TABLET PO SCH (08:22)
[2020-04-28] MEDS: FUROSEMIDE 40 MG TABLET PO SCH (08:22)
[2020-04-28] MEDS: DOXAZOSIN 4 MG TAB PO SCH (08:22)
[2020-04-28] MEDS: CLOPIDOGREL 75 MG TABLET PO SCH (08:22)
[2020-04-28] MEDS: HYDRALAZINE HCL 25 MG TABLET PO SCH (08:22)
[2020-04-28] MEDS: COLCHICINE 0.6 MG TAB PO SCH (08:23)
[2020-04-28] MEDS: VITAMIN D 5,000 UNIT CAP PO SCH (08:23)
[2020-04-28] MEDS: THIAMINE HCL 100 MG TABLET PO SCH (08:23)
[2020-04-28] MEDS: CEFTRIAXONE/SWI 1gm 1 GM/10 ML SYR IV SCH (08:24)
[2020-04-28] MEDS: ASCORBIC ACID 500 MG TABLET PO SCH (08:24)
[2020-04-28] MEDS: ENOXAPARIN 80 MG/0.8 ML SQ SCH (08:24)
[2020-04-28] MEDS ORDERED: CALCITROL 0.25 MCG CAP PO SCH (09:00)
--- NOTE | 2020-04-28 09:15 | ECHO ---
HEIGHT: 5 ft 3 in WEIGHT: 177 lb 12.8 oz DATE OF STUDY: 04/25/[address]: Louis Ndiaye 2-DIMENSIONAL: YES M.MODE: YES DOPPLER: YES COLOR FLOW: YES TDS: NO PORTABLE: YES DEFINITY: NO BUBBLE STUDY: NO DIAGNOSIS: FLUID OVERLOAD CARDIAC HISTORY: CATHERIZATION: NO SURGERY: NO PROSTHETIC VALVE: NO PACEMAKER: NO MEASUREMENTS (cm) DIASTOLIC (NORMALS) SYSTOLIC (NORMALS) IVSd 1.3 (0.6-1.2) LA Diam 3.0 (1.9-4.0) LVEF 77% LVIDd 3.4 (3.5-5.7) LVIDs 1.9 (2.0-3.5) %FS 45% LVPWd 1.4 (0.6-1.2) Ao Diam 3.0 (2.0-3.7) 2 DIMENSIONAL ASSESSMENT: RIGHT ATRIUM: NORMAL LEFT ATRIUM: NORMAL RIGHT VENTRICLE: NORMAL LEFT VENTRICLE: LEFT VENTRICULAR HYPERTROPHY TRICUSPID VALVE: NORMAL MITRAL VALVE: NORMAL PULMONIC VALVE: NORMAL AORTIC VALVE: NORMAL PERICARDIAL EFFUSION: NONE AORTIC ROOT: NORMAL LEFT VENTRICULAR WALL MOTION: NORMAL DOPPLER/COLOR FLOW: NORMLA COMMENTS: LEFT VENTRICULAR HYPERTROPHY, CONCENTRIC. NORMAL LEFT VENTRICULAR EJECTION FRACTION. NO WALL MOTION ABNORMALITY. NORMAL LEFT ATRIAL SIZE. NO EFFUSION. TECHNOLOGIST: Juan GIMENEZ
[2020-04-28] MEDS: BUDESONIDE 0.5 MG/2 ML NEB NEB SCH (09:43)
--- NOTE | 2020-04-28 13:17 | P.PN ---
Subjective Date of Service: 04/28/20 Chief Complaint: Resp failure Subjective: No new changes, Improving Review of Systems 10-point ROS is otherwise unremarkable Physical Examination - Vital Signs Temperature: 97.8 F Blood Pressure: 141/78 Pulse: 83 Respirations: 21 Pulse Ox (%): 95 - Physical Exam General: Alert, In no apparent distress HEENT: Atraumatic, Normocephalic Neck: Supple Respiratory: Normal air movement Cardiovascular: Regular rate/rhythm, Normal S1 S2 Capillary refill: <2 Seconds Gastrointestinal: Soft and benign, W/out hepatosplenomegaly Musculoskeletal: No clubbing Integumentary: No rashes Neurological: Normal speech, Normal strength at 5/5 x4 extr Lymphatics: No axilla or inguinal lymphadenopathy Assessment & Plan - Problems (Diagnosis) (1) COVID-19 Current Visit: Yes Status: Acute (2) Respiratory failure Current Visit: Yes Status: Acute Qualifiers: Chronicity: acute (3) Viral pneumonia Current Visit: Yes Status: Acute (4) Acute kidney failure Current Visit: No Status: Acute (5) Chronic kidney disease (CKD), stage IV (severe) Onset Date: 12/16/16 Current Visit: No Status: Acute (6) Diabetes mellitus Onset Date: 08/14/18 Current Visit: No Status: Acute Qualifiers: Diabetes mellitus type: type 2 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 Acute hypoxic respiratory failure due to covid 19 pneumonia monitor closely under telemetry Pulmicort neb Appreciate help from pulmonology Continue steroid Status post convalescent plasma administration. Patient weaned down to room air, saturating well Acute kidney injury on CKD stage 4 Appreciate help from nephrology Patient on Lasix Monitor renal parameters Monitor electrolytes and correct accordingly Optimize Lasix doses Creatinine is still high, Monitor renal function closely. Resume oral sodium bicarb. AFib with RVR resolved Heart rate controlled well Stopped amiodarone drip, continue beta blockers Appreciate help from cardiology Diabetes : Continue home medications and insulin sliding scale Hypertension : Titrate antihypertensives Hyperlipidemia : Continue home medications Disposition : Patient improving well Will try to wean down oxygen requirement Monitor renal parameters Possible Dc home cleared by nephrology Need follow up with cardiology / nephrology/pulmonology as outpatient Time Spent Managing Pts Care (In Minutes): 42
[2020-04-28 15:57] VITALS: O2SAT 100
[2020-04-28 18:52] VITALS: BP 147/67
--- NOTE | 2020-04-28 21:11 | P.DS ---
Admission Date: 04/24/20 Discharge Date: 04/30/20 Disposition: ROUTINE DISCHARGE Discharge Condition: GOOD Reason for Admission: Resp failure - Problems (1) COVID-19 Status: Acute (2) Respiratory failure Status: Acute Qualifiers: Chronicity: acute (3) Viral pneumonia Status: Acute (4) Acute kidney failure Status: Acute (5) Chronic kidney disease (CKD), stage IV (severe) Onset Date: 12/16/16 Status: Acute (6) Diabetes mellitus Onset Date: 08/14/18 Status: Acute Qualifiers: Diabetes mellitus type: type 2 Diabetes mellitus intermediate insulin use: with intermediate use Diabetes mellitus complication status: with unspecified complications (7) Essential (primary) hypertension Onset Date: 12/16/16 Status: Chronic (8) Gout Onset Date: 08/14/18 Status: Chronic (9) Hyperlipidemia Onset Date: 08/14/18 Status: Chronic Brief History of Present Illness: 70-year-old man with a history of chronic diastolic heart failure, chronic kidney disease and diabetes mellitus type 2 was brought to the emergency department due to progressive shortness of breath. Patient was noted to be hypoxic on room air and was placed on 6 L by EMS. He is currently maintained on 2-3 L of oxygen in the ED. He was hospitalized about 12 days ago for acute renal failure and bilateral pneumonia and tested positive for COVID. He was discharged with supplemental oxygen and oral Prednisone. Chest x-ray in the ED today demonstrated worsened bilateral opacities. Patient noted to be in moderate distress during my examination. He is admitted for further management of viral pneumonia with hypoxia. Hospital Course: COVID 19 pneumonia Continue steroids Status post convalescent plasma Appreciate help from pulmonology Monitor closely Blood cultures and urine culture shows no growth. Acute hypoxic respiratory failure due to covid 19 pneumonia monitor closely under telemetry Pulmicort neb Appreciate help from pulmonology Continue steroid Status post convalescent plasma administration. Patient weaned down to room air, saturating well Acute kidney injury on CKD stage 4 Appreciate help from nephrology Patient on Lasix Monitor renal parameters Monitor electrolytes and correct accordingly Optimize Lasix doses Creatinine is still high, Monitor renal function closely. Resume oral sodium bicarb. AFib with RVR resolved Heart rate controlled well Stopped amiodarone drip, continue beta blockers Appreciate help from cardiology Diabetes : Continue home medications and insulin sliding scale Hypertension : Titrate antihypertensives Hyperlipidemia : Continue home medications Disposition : Patient improving well Wean down oxygen requirement Monitored renal parameters Dc home once cleared by nephrology Need follow up with cardiology / nephrology/pulmonology as outpatient Vital Signs/Physical Exam: Temp Pulse Resp BP Pulse Ox 97.8 F 77 21 H 149/83 H 97 04/28/20 13:20 04/28/20 16:00 04/28/20 16:00 04/28/20 16:00 04/28/20 16:00 General: Alert, In no apparent distress HEENT: Atraumatic, Normocephalic Neck: Supple Respiratory: Normal air movement Cardiovascular: Regular rate/rhythm, Normal S1 S2 Capillary refill: <2 Seconds Gastrointestinal: Soft and benign, W/out hepatosplenomegaly Musculoskeletal: No clubbing Integumentary: No rashes Neurological: Normal speech, Normal strength at 5/5 x4 extr Laboratory Data at Discharge: WBC 12.7 K/uL (4.3-10.9) H 04/28/20 04:45 Hgb 10.8 g/dL (13.6-17.9) L 04/28/20 04:45 Hct 32.7 % (39.6-49.0) L 04/28/20 04:45 Plt Count 334 K/uL (152-406) 04/28/20 04:45 PT 15.3 SECONDS (9.5-12.5) H 04/25/20 04:20 INR 1.30 04/25/20 04:20 APTT 29.0 SECONDS (24.3-36.9) 04/25/20 04:20 Sodium 144 mmol/L (136-145) 04/28/20 04:45 Potassium 4.6 mmol/L (3.5-5.1) 04/28/20 04:45 BUN 90 mg/dL (7-18) H 04/28/20 04:45 Creatinine 4.72 mg/dL (0.55-1.3) H 04/28/20 04:45 Glucose 126 mg/dL (74-106) H 04/28/20 04:45 Uric Acid 10.2 mg/dL (3.5-7.2) H D 04/25/20 04:20 Phosphorus 4.8 mg/dL (2.5-4.9) 04/28/20 04:45 Magnesium 2.4 mg/dL (1.8-2.4) 04/28/20 07:56 Total Bilirubin 0.4 mg/dL (0.2-1.0) 04/24/20 01:00 AST 28 U/L (15-37) 04/24/20 01:00 ALT 33 U/L (12-78) 04/24/20 01:00 Alkaline Phosphatase 43 U/L (45-117) L 04/24/20 01:00 Home Medications: Clopidogrel Bisulfate [Plavix*] 75 mg PO DAILY #30 tablet 12/17/16 Doxazosin [Cardura*] 8 mg PO BID 12/17/16 Insulin Detemir [Levemir Flextouch] 20 unit SQ DAILY 12/17/16 Hydralazine [Apresoline*] 100 mg PO BID 08/12/18 Amlodipine [Norvasc*] 5 mg PO DAILY #30 tab 04/15/20 Folic Acid 1 mg PO DAILY #30 tablet 04/15/20 Metoprolol Tartrate [Lopressor*] 50 mg PO BID 6AM 6PM #60 tab 04/15/20 Na Bicarb Tab [Sodium Bicarb 325 MG Tab*] 650 mg PO TIDWM #180 tab 04/15/20 Thiamine HCl [Vitamin B-1*] 100 mg PO DAILY #30 tablet 04/15/20 Probenecid/Colchicine [Probenecid-Colchicine Tablet] 1 tab PO DAILY 04/25/20 Apixaban [Eliquis] 2.5 mg PO BID #14 tablet 04/28/20 Ascorbic Acid [Vitamin C*] 500 mg PO Q12H #20 tablet 04/28/20 Budesonide [Pulmicort*] 0.5 mg NEB BIDRESP #20 amp 04/28/20 Calcitrol [Rocaltrol*] 0.5 mcg PO DAILY #30 cap 04/28/20 Furosemide [Lasix*] 40 mg PO DAILY #30 tab 04/28/20 predniSONE [Deltasone] 20 mg PO BID #7 tab 04/28/20 New Medications: Apixaban [Eliquis] 2.5 mg PO BID #14 tablet Furosemide [Lasix*] 40 mg PO DAILY #30 tab predniSONE [Deltasone] 20 mg PO BID #7 tab Budesonide [Pulmicort*] 0.5 mg NEB BIDRESP #20 amp Calcitrol [Rocaltrol*] 0.5 mcg PO DAILY #30 cap Ascorbic Acid [Vitamin C*] 500 mg PO Q12H #20 tablet Time spent managing pt's care (in minutes): 40
--- NOTE | 2020-04-28 21:11 | P.PN ---
Date of Service: 04/28/20 Vital Signs Temp Pulse Resp BP Pulse Ox 97.8 F 99 H 26 H 147/67 H 96 04/28/20 13:20 04/28/20 18:00 04/28/20 18:00 04/28/20 18:00 04/28/20 17:00 Medications Acetaminophen (Tylenol -Extra Strength) 500 mg PO Q4HP PRN PRN Reason: TEMP > 100' F Stop: 05/24/20 04:06 Allopurinol (Zyloprim) 100 mg PO BID YEMI Stop: 05/26/20 10:01 Last Admin: 04/28/20 08:21 Dose: 100 mg Documented by: Amlodipine Besylate (Norvasc) 5 mg PO BID YEMI Stop: 05/26/20 21:01 Last Admin: 04/28/20 08:20 Dose: 5 mg Documented by: Ascorbic Acid (Vitamin C) 500 mg PO Q12H YEMI Stop: 05/24/20 22:01 Last Admin: 04/28/20 08:24 Dose: 500 mg Documented by: Budesonide (Pulmicort) 0.5 mg NEB BIDRESP YEMI Stop: 05/25/20 18:00 Last Admin: 04/28/20 09:43 Dose: 0.5 mg Documented by: Calcitriol (Rocaltrol) 0.5 mcg PO DAILY YEMI Stop: 05/28/20 09:01 Last Admin: 04/28/20 08:23 Dose: 0.5 mcg Documented by: Cholecalciferol (Vitamin D 5,000 Iu Cap) 5,000 unit PO DAILY YEMI Stop: 05/25/20 09:01 Last Admin: 04/28/20 08:23 Dose: 5,000 unit Documented by: Clopidogrel Bisulfate (Plavix) 75 mg PO DAILY YEMI Stop: 05/25/20 09:01 Last Admin: 04/28/20 08:22 Dose: 75 mg Documented by: Colchicine (Colcrys) 0.6 mg PO DAILY YEMI Stop: 05/25/20 09:31 Last Admin: 04/28/20 08:23 Dose: 0.6 mg Documented by: Dexamethasone (Decadron) 2 mg IV Q8HR YEMI Stop: 05/25/20 09:01 Last Admin: 04/28/20 17:22 Dose: 2 mg Documented by: Doxazosin Mesylate (Cardura) 8 mg PO BID [facility] Stop: 05/24/20 21:01 Last Admin: 04/28/20 08:22 Dose: 8 mg Documented by: Enoxaparin Sodium (Lovenox 80 Mg Inj) 80 mg SQ DAILY [facility] Stop: 05/24/20 09:01 Last Admin: 04/28/20 08:24 Dose: 80 mg Documented by: Folic Acid (Folic Acid) 1 mg PO DAILY [facility] Stop: 05/25/20 09:01 Last Admin: 04/28/20 08:22 Dose: 1 mg Documented by: Furosemide (Lasix) 40 mg PO DAILY [facility] Stop: 05/27/20 09:01 Last Admin: 04/28/20 08:22 Dose: 40 mg Documented by: Hydralazine HCl (Apresoline) 100 mg PO BID [facility] Stop: 05/24/20 21:01 Last Admin: 04/28/20 08:22 Dose: 100 mg Documented by: Hydralazine HCl (Apresoline) 10 mg IV Q4HP PRN PRN Reason: FOR SBP>160 OR DBP>100 MMHG Stop: 05/25/20 17:18 Last Admin: 04/25/20 17:35 Dose: 10 mg Documented by: Sodium Chloride (Sodium Chloride) 250 mls @ 0 mls/hr IV .Q0M [facility] Stop: 05/24/20 23:01 Last Admin: 04/24/20 23:02 Dose: 250 mls Documented by: Ceftriaxone Sodium/Sodium Chloride (Rocephin 1 Gm/10 Ml Swi Ivp) 1 gm in 10 mls @ 600 mls/hr IV DAILY [facility]; Protocol Stop: 05/25/20 12:01 Last Admin: 04/28/20 08:24 Dose: 10 mls Documented by: Metoprolol Tartrate (Lopressor) 50 mg PO BID 6AM 6PM [facility] Stop: 05/25/20 06:01 Last Admin: 04/28/20 17:22 Dose: 50 mg Documented by: Multivitamins/Minerals (Centrum Tablet) 1 tab PO DAILY [facility] Stop: 05/25/20 09:01 Last Admin: 04/28/20 08:21 Dose: 1 tab Documented by: Ondansetron HCl (Zofran) 4 mg IV Q6HP PRN PRN Reason: NAUSEA / VOMITING Stop: 05/24/20 04:06 Sodium Bicarbonate (Sodium Bicarb 325 Mg) 650 mg PO TIDWM [facility] Stop: 05/27/20 12:01 Last Admin: 04/28/20 17:23 Dose: 650 mg Documented by: Sodium Chloride (Normal Saline Flush) 10 ml IV BID YEMI Stop: 05/24/20 09:01 Last Admin: 04/28/20 08:24 Dose: 10 ml Documented by: Thiamine HCl (Vitamin B-1) 100 mg PO DAILY YEMI Stop: 05/25/20 09:01 Last Admin: 04/28/20 08:23 Dose: 100 mg Documented by: Microbiology Results 04/24/20 00:18 Blood - Blood Aerobic Blood Culture - Preliminary No growth in 24 hours. 04/24/20 00:18 Blood - Blood Anaerobic Blood Culture - Preliminary No growth in 24 hours. 04/23/20 23:50 Blood - Blood Aerobic Blood Culture - Preliminary No growth in 24 hours. 04/23/20 23:50 Blood - Blood Anaerobic Blood Culture - Preliminary No growth in 24 hours. Assessment/ Plan: Nephrology CPS improving without CP or SOB. +HOPKINS Feeling better today. Good appetite. No acute events overnight. Vitals, medications, blood work and imaging reviewed in the chart. NAD. MMM. Neck supple. CTA. RRR. Soft Abd. No C/C/E. No rash. AAO. Normal Speech. Laboratory Data (last 24 hrs) 04/24/20 01:00: WBC 18.0 H D, Hgb 10.2 L, Hct 30.8 L D, Plt Count 366 D 04/24/20 01:00: Sodium 144, Potassium 5.6 H*, BUN 57 H, Creatinine 4.31 H, Glucose 135 H, Magnesium 2.4, Total Bilirubin 0.4, AST 28, ALT 33, Alkaline Phosphatase 43 L Imagings Data: EXAM DESCRIPTION: RAD - Chest Single View - 04/24/2020 11:42 am CLINICAL HISTORY: SOB Chest pain. COMPARISON: Chest Single View dated 04/23/2020; Abdomen 1 View (KUB) dated 04/14/2020; Chest Single View dated 04/10/2020; Chest Single View dated 08/12/2018 FINDINGS: Portable technique limits examination quality. Mild improvement is seen in the moderate bilateral pulmonary opacities since comparative study. The heart is moderately enlarged in size. No displaced fractures. IMPRESSION: Mild improvement in lung aeration since comparative study. Conclusions/Impression: A/ KRISTEL likely CRS. Hypernatremia. Hyperkalemia Acidosis Hypocalcemia CKD IV with proteinuria HTN with CKD/ CHF. Diastolic CHF, A/C. DM II with CKD. Anemia in chronic illness. MINI/ Secondary HyperPTH. Gout. Severe malnutrition. Hypoalbuminemia. Acute hypoxic respiratory failure. COVID19. P/ Continue current POC and Medications. Continue Lasix 40mg PO. No fluid restriction at this time. Continue bicarb. Bipap as needed. COVID protocol. Wean steroid as tolerated. Continue abx. Give Retacrit PRN. Recommend PT. No NSAIDs. AM labs PRN. Daily weight.
== END 2020-04-28 18:45 | disposition home or self-care (01) | DRG 177 ==
LOC: ER 21:07 → ERHOLD 04-24 02:48 → 3RD-ICU 04-24 03:20
PROVIDERS: ADMIT Internal Medicine; ATTEND Family Medicine
PROC: 30233K1 Transfusion of Nonautologous Frozen Plasma into Peripheral Vein, Percutaneous Approach (ICD-10-PCS; principal; 2020-04-24)
PROC: 06HY33Z Insertion of Infusion Device into Lower Vein, Percutaneous Approach (ICD-10-PCS; 2020-04-24)
PROC: 8E0ZXY6 Isolation (ICD-10-PCS; 2020-04-24)
DX: U07.1 COVID-19 (principal); J12.89 Other viral pneumonia; I50.33 Acute on chronic diastolic (congestive) heart failure; E43 Unspecified severe protein-calorie malnutrition; J96.01 Acute respiratory failure with hypoxia; I13.0 Hypertensive heart and chronic kidney disease with heart failure and stage 1 through stage 4 chronic kidney disease, or unspecified chronic kidney disease; N18.4 Chronic kidney disease, stage 4 (severe); J44.0 Chronic obstructive pulmonary disease with (acute) lower respiratory infection; E87.2 Acidosis; N25.81 Secondary hyperparathyroidism of renal origin; N17.9 Acute kidney failure, unspecified; E87.0 Hyperosmolality and hypernatremia; E11.22 Type 2 diabetes mellitus with diabetic chronic kidney disease; E78.5 Hyperlipidemia, unspecified; I25.10 Atherosclerotic heart disease of native coronary artery without angina pectoris; I25.2 Old myocardial infarction; E87.5 Hyperkalemia; E83.51 Hypocalcemia; D63.8 Anemia in other chronic diseases classified elsewhere; I48.91 Unspecified atrial fibrillation; N25.0 Renal osteodystrophy; M10.9 Gout, unspecified; Z68.32 Body mass index [BMI] 32.0-32.9, adult; Z79.4 Long term (current) use of insulin; Z79.02 Long term (current) use of antithrombotics/antiplatelets; Z79.899 Other long term (current) drug therapy; Z79.52 Long term (current) use of systemic steroids
CPT/HCPCS: 36415; 51702; 71045; 80048; 80076; 81003; 81015; 82805; 82947; 83605; 83735; 83880; 84100; 84484; 84550; 85025; 85379; 85610; 85730; 86850; 86900; 86901; 86927; 87040; 87086; 87088; 93005; 93306; 94660; 94760; 96361; 96365; 96367; 96375; 99285; C9113; J0282; J0360; J0456; J0696; J1100; J1644; J1940; J7030; J7050; J7060; P9047; Q5105; U0002

== ENCOUNTER 2020-12-15 12:34 | Emergency (ER) | payer OTHER ==
[2020-12-15] MEDS ORDERED: LIDOCAINE 1% MPF 5 ML VIAL ONE (15:50)
--- NOTE | 2020-12-15 16:21 | RAD REPORT ---
EXAM DESCRIPTION: CT - Facial Bones W/ Mpr - 12/15/2020 4:04 pm CLINICAL HISTORY: Facial injury status post fall with facial pain COMPARISON: None TECHNIQUE: Computed axial tomography of the face was obtained. Coronal and sagittal reconstruction w as performed. All CT scans are performed using dose optimization technique as appropriate and may include automated exposure control or mA/KV adjustment according to patient size. FINDINGS: A fracture is not seen. A TMJ dislocation is not noted. The globes are intact. Fluid within the sinuses is not seen. IMPRESSION: Negative for a facial fracture.
--- NOTE | 2020-12-15 17:08 | ER ---
Nurse's Notes [facility] Name: José Miguel Peraza Jr Age: 70 yrs Sex: Male : 1950 Arrival Date: 12/15/2020 Time: 12:35 Bed 17 Private MD: Marina Brooks H Diagnosis: Laceration without foreign body of lip-upper Presentation: 12/15 13:49 Chief complaint: Patient states: Stepped back and fell, lac on upper lip 30 mins [employer]. ca1 Denies hitting head. Denies LOC. Coronavirus screen: Client denies travel out of the [place] in the last 14 days. At this time, the client does not indicate any symptoms associated with coronavirus-19. Ebola Screen: Patient negative for fever greater than or equal to 101.5 degrees Fahrenheit, and additional compatible Ebola Virus Disease symptoms Patient denies exposure to infectious person. Patient denies travel to an Ebola-affected area in the 21 days before illness onset. No symptoms or risks identified at this time. Initial Sepsis Screen: Does the patient meet any 2 criteria? No. Patient's initial sepsis screen is negative. Does the patient have a suspected source of infection? No. Patient's initial sepsis screen is negative. Risk Assessment: Do you want to hurt yourself or someone else? Patient reports no desire to harm self or others. Onset of symptoms was December 15, 2020. 13:49 Method Of Arrival: Ambulatory ca1 13:49 Acuity: BRAD 4 ca1 15:30 Acuity: BRAD 3 jd3 Historical: - Allergies: 13:53 No Known Allergies; ca1 - PMHx: 13:53 Diabetes - NIDDM; Gout; Hypertension; Myocardial infarction; ca1 - PSHx: 13:53 None; ca1 - Immunization history:: Flu vaccine is not up to date. - Social history:: Smoking status: Patient denies any tobacco usage or history of. Screenin:21 Abuse screen: Denies threats or abuse. Nutritional screening: No deficits noted. jd3 Tuberculosis screening: No symptoms or risk factors identified. Fall Risk Ambulatory Aid- None/Bed Rest/Nurse Assist (0 pts). Gait- Normal/Bed Rest/Wheelchair (0 pts) Mental Status- Oriented to own ability (0 pts). Total Flaherty Fall Scale indicates No Risk (0-24 pts). Assessment: 15:30 General: Appears in no apparent distress. comfortable, Behavior is calm, cooperative, jd3 appropriate for age. Pain: Complains of pain in upper lip Quality of pain is described as aching. Neuro: Level of Consciousness is awake, alert, obeys commands, Oriented to person, place, time, situation. Cardiovascular: Denies chest pain, Capillary refill < 3 seconds Patient's skin is warm and dry. Respiratory: Airway is patent Respiratory effort is even, unlabored, Respiratory pattern is regular, symmetrical, Denies cough, shortness of breath. GI: No signs and/or symptoms were reported involving the gastrointestinal system. : No signs and/or symptoms were reported regarding the genitourinary system. EENT: small laceration noted to the middle of the upper lip.. Derm: Skin is intact, Skin is dry, Skin is normal, Skin temperature is warm. Musculoskeletal: Circulation, motion, and sensation intact. Range of motion: intact in all extremities. Injury Description: Laceration sustained to upper lip is clean, 0.5 to 2.5 cm long, no active bleeding noted at this time. 16:21 Reassessment: Patient appears in no apparent distress at this time. Patient and/or jd3 family updated on plan of care and expected duration. Pain level reassessed. Patient is alert, oriented x 3, equal unlabored respirations, skin warm/dry/pink. 17:37 Reassessment: Patient appears in no apparent distress at this time. No changes from jd3 previously documented assessment. Patient and/or family updated on plan of care and expected duration. Pain level reassessed. Patient is alert, oriented x 3, equal unlabored respirations, skin warm/dry/pink. Vital Signs: 13:49 BP 132 / 70; Pulse 64; Resp 16 S; Temp 97.5(TE); Pulse Ox 98% on R/A; Weight 86.18 kg ca1 (R); Height 5 ft. 2 in. (157.48 cm) (R); Pain 3/10; 17:37 BP 131 / 87; Pulse 65; Resp 17 S; Pulse Ox 97% on R/A; jd3 13:49 Body Mass Index 34.75 (86.18 kg, 157.48 cm) ca1 ED Course: 12:35 Patient arrived in ED. am2 12:35 Marina Brooks DO is Private Physician. am2 13:52 Triage completed. ca1 13:53 Arm band placed on right wrist. ca1 15:14 Noman Mace PA is PHCP. cp 15:14 Noman Garnica MD is Attending Physician. cp 15:30 Homero Malagon RN is Primary Nurse. jd3 16:04 CT Facial Bones W/O Con In Process Unspecified. EDMS 16:22 Patient has correct armband on for positive identification. Bed in low position. Call jd3 light in reach. Side rails up X 1. Pulse ox on. NIBP on. 16:40 Assist provider with laceration repair on upper lip that was 2.5 cm. or less using jd3 sutures. Set up tray. Performed by Noman AGUILERA Patient tolerated well. 17:38 Patient did not have IV access during this emergency room visit. jd3 Administered Medications: 15:41 Drug: Lidocaine (1 %) 5 ml Volume: 5 ml; Route: Infiltration; jd3 Outcome: 17:07 Discharge ordered by MD. cp 17:38 Discharged to home ambulatory, with family. jd3 17:38 Condition: stable 17:38 Discharge instructions given to patient, Instructed on discharge instructions, follow up and referral plans. medication usage, Demonstrated understanding of instructions, follow-up care, medications. 17:38 Patient left the ED. jd3 Signatures: Dispatcher [employer] EDTX Noman Mace PA PA cp Moreno, Amanda am2 Homero Malagon RN RN jd3 Monalisa Noble RN RN ca1 Corrections: (The following items were deleted from the chart) 15:37 15:35 BP 129 / 74; Pulse 96bpm; Resp 17bpm; Spontaneous; Pulse Ox 97% RA; jd3 jd3 15:37 15:36 Reassessment: Patient appears in no apparent distress at this time. Patient jd3 and/or family updated on plan of care and expected duration. Pain level reassessed. Patient is alert, oriented x 3, equal unlabored respirations, skin warm/dry/pink. pt reports some relief from pain medication, but still reporting pain. jd3 15:37 14:30 Reassessment: Patient appears in no apparent distress at this time. Patient jd3 and/or family updated on plan of care and expected duration. Pain level reassessed. Patient is alert, oriented x 3, equal unlabored respirations, skin warm/dry/pink. jd3
--- NOTE | 2020-12-15 17:08 | EDPHYS ---
Physician Documentation [facility] Name: José Miguel Peraza Jr Age: 70 yrs Sex: Male : 1950 Arrival Date: 12/15/2020 Time: 12:35 Bed 17 Private MD: Marina Brooks H ED Physician Noman Garnica HPI: 12/15 15:35 This 70 yrs old Black Male presents to ER via Ambulatory with complaints of Lip Injury, cp Fall Injury. 15:35 The patient presents with pain. The problem is located in the upper jaw. Onset: The cp symptoms/episode began/occurred today. Associated signs and symptoms: Pertinent positives: laceration to upper lip. Patient reports trip and fall causing him to strike upper lip against floor causing laceration. No LOC. Historical: - Allergies: 13:53 No Known Allergies; ca1 - PMHx: 13:53 Diabetes - NIDDM; Gout; Hypertension; Myocardial infarction; ca1 - PSHx: 13:53 None; ca1 - Immunization history:: Flu vaccine is not up to date. - Social history:: Smoking status: Patient denies any tobacco usage or history of. ROS: 15:40 Skin: Positive for laceration(s), of the upper lip. cp 15:40 Constitutional: Negative for chills, fever, poor PO intake. cp 15:40 Neck: Negative for pain with movement, pain at rest, stiffness, tenderness, bony tenderness. 15:40 Cardiovascular: Negative for chest pain. 15:40 Respiratory: Negative for cough, shortness of breath, wheezing. 15:40 Abdomen/GI: Negative for abdominal pain, nausea, vomiting, and diarrhea. 15:40 Back: Negative for pain at rest, pain with movement. 15:40 Neuro: Negative for altered mental status, dizziness, headache, loss of consciousness, weakness. 15:40 All other systems are negative. Exam: 15:45 Constitutional: The patient appears in no acute distress, alert, awake, non-toxic, well cp developed, well nourished. 15:45 Head/face: Noted is a laceration(s), that is deep, that is linear, of the upper lip, cp swelling, that is mild, of the upper lip, tenderness, that is mild, of the maxillary jaw line. 15:45 Eyes: Periorbital structures: appear normal, Pupils: equal, round, and reactive to light and accomodation, Extraocular movements: intact throughout, Lids and lashes: appear normal, bilaterally. 15:45 ENT: External ear(s): are unremarkable, Nose: is normal, Dental exam: no acute changes, dental caries, that is moderate, diffusely, missing teeth, diffusely. 15:45 Neck: C-spine: vertebral tenderness, is not appreciated, crepitus, is not appreciated, ROM/movement: is normal, is supple, without pain, no range of motions limitations. 15:45 Chest/axilla: Inspection: normal, Palpation: is normal, no crepitus, no tenderness. 15:45 Cardiovascular: Rate: normal, Rhythm: regular. 15:45 Respiratory: the patient does not display signs of respiratory distress, Respirations: normal, no use of accessory muscles, labored breathing, is not present, Breath sounds: are clear throughout, no decreased breath sounds. 15:45 Abdomen/GI: Exam negative for discomfort, distension, guarding, Inspection: abdomen appears normal. 15:45 Neuro: Orientation: to person, place \T\ time. Mentation: is normal, Motor: moves all fours, strength is normal, Sensation: is normal, Gait: is steady. Vital Signs: 13:49 BP 132 / 70; Pulse 64; Resp 16 S; Temp 97.5(TE); Pulse Ox 98% on R/A; Weight 86.18 kg ca1 (R); Height 5 ft. 2 in. (157.48 cm) (R); Pain 3/10; 17:37 BP 131 / 87; Pulse 65; Resp 17 S; Pulse Ox 97% on R/A; jd3 13:49 Body Mass Index 34.75 (86.18 kg, 157.48 cm) ca1 Laceration: 17:00 Wound Repair of 1.5cm ( 0.6in ) subcutaneous laceration to upper lip. Linear shaped.. cp Distal neuro/vascular/tendon intact. Anesthesia: Wound infiltrated with 2 mls of 1% lidocaine. Wound prep: Simple cleansing by me. Skin closed with 4 6-0 Vicryl using simple sutures and sterile technique. Patient tolerated well. MDM: 15:23 Patient medically screened. cp 17:05 Data reviewed: vital signs, nurses notes, radiologic studies, CT scan. cp 17:05 Differential diagnosis: dental injury, facial fracture, simple lip laceration, complex cp lip laceration. Counseling: I had a detailed discussion with the patient and/or guardian regarding: the historical points, exam findings, and any diagnostic results supporting the discharge/admit diagnosis, radiology results, to return to the emergency department if symptoms worsen or persist or if there are any questions or concerns that arise at home. Response to treatment: the patient's symptoms have markedly improved after treatment, and as a result, I will discharge patient. 12/15 15:27 Order name: CT Facial Bones W/O Con; Complete Time: 16:23 12/15 16:23 Interpretation: Report reviewed. 12/15 15:27 Order name: Dressing - Wound; Complete Time: 15:35 12/15 15:27 Order name: Gloves, Sterile; Complete Time: 15:35 12/15 15:27 Order name: Setup Suture Tray; Complete Time: 15:30 cp Administered Medications: 15:41 Drug: Lidocaine (1 %) 5 ml Volume: 5 ml; Route: Infiltration; jd3 Disposition: 17:30 Chart complete. 12/16 09:44 Co-signature as Attending Physician, Noman Garnica MD I agree with the assessment and deepak plan of care. Disposition: 12/15/20 17:07 Discharged to Home. Impression: Laceration without foreign body of lip - upper. - Condition is Stable. - Discharge Instructions: Facial Laceration. - Prescriptions for Keflex 500 mg Oral Capsule - take 1 capsule by ORAL route every 8 hours for 10 days; 30 capsule. - Medication Reconciliation Form, Thank You Letter, Antibiotic Education, Prescription Opioid Use form. - Follow up: Private Physician; When: 2 - 3 days; Reason: Worsening of condition. - Problem is new. - Symptoms have improved. Signatures: Dispatcher [employer] EDNoman Bridges MD MD cha Page, Corey, PA PA cp Davies, Jonathon, RN RN jMonalisa Lopez RN RN ca1 Corrections: (The following items were deleted from the chart) 12/15 17:38 17:07 12/15/2020 17:07 Discharged to Home. Impression: Laceration without foreign body jd3 of lip - upper. Condition is Stable. Forms are Medication Reconciliation Form, Thank You Letter, Antibiotic Education, Prescription Opioid Use. Follow up: Private Physician; When: 2 - 3 days; Reason: Worsening of condition. Problem is new. Symptoms have improved. cp
== END 2020-12-15 17:38 | disposition home or self-care (01) ==
LOC: ER 12:34
PROC: 0CQ0XZZ Repair Upper Lip, External Approach (ICD-10-PCS; principal; 2020-12-15)
DX: S01.511A Laceration without foreign body of lip, initial encounter (principal); W01.0XXA Fall on same level from slipping, tripping and stumbling without subsequent striking against object, initial encounter; E11.9 Type 2 diabetes mellitus without complications; M10.9 Gout, unspecified; I10 Essential (primary) hypertension; I25.2 Old myocardial infarction
CPT/HCPCS: 70486; 76377; 99284

== ENCOUNTER 2022-11-30 09:20 | Emergency (ER) | payer OTHER ==
--- OUTSIDE RECORDS SUMMARY | 2022-11-30 09:46 | XMS REPORT | Continuity of Care Document ---
:1950 Author Organization [facility] t Address [address] [place] [address] Care Team Providers Name Role Phone BLAKE OJEDA Primary Care Physician Unavailable JAIME LUIS Attending Clinician Unavailable Pob, [facility] Main Attending Clinician Unavailable Doctor Unassigned, [place] Attending Clinician Unavailable Clara Garcia RN Attending Clinician Unavailable Cachorro Malcolm DO Attending Clinician Shashi Ellsworth DO Attending Clinician Kat Castaneda MD Attending Clinician KAT CASTANEDA Attending Clinician Unavailable JAIME LUIS Admitting Clinician Unavailable Shashi Ellsworth DO Admitting Clinician SHASHI ELLSWORTH Admitting Clinician Unavailable Payers Payer Name Policy Type Policy Number Effective Date Expiration Date S linden [facility] DUAL [id number] 2021 COMP HMO D SNP 00:00:00 MEDICAID [facility] [id number] 2021 00:00:00 Problems Condition Condition Condition Status Onset Resolution Last Treating Co mments Source Name Details Category Date Date Treatment Clinician Date CKD CKD Disease Active Overview: Univer s (chronic (chronic 2-20 Formattin ity of kidney kidney 00:00: g of this [place] disease) disease) 00 note Medica l stage 5, stage 5, might be Bran ch GFR less GFR less different than 15 than 15 from the ml/min ml/min original. Added automatic ally from request for surgery [id number] Acute gout Acute gout Disease Active U nivers of foot of foot 2-14 ity of 00:00: [place] [facility] Bacterial Bacterial Disease Active Uni vers skin skin 2-10 ity of infection infection 00:00: [facility] Medical Branch Cellulitis Cellulitis Disease Active U nivers 2-09 ity of 00:00: [place] [facility] Obesity Obesity Disease Active Univers (BMI (BMI 2-09 ity of 30-39.9) 30-39.9) 00:00: [place] [facility] CKD CKD Disease Active Univers (chronic (chronic 2-09 ity of kidney kidney 00:00: [place] disease) disease) 00 Medica l stage 4, stage 4, Branch GFR 15-29 GFR 15-29 ml/min ml/min Acute on Acute on Disease Active Unive rs chronic chronic 2-09 ity of diastolic diastolic 00:00: [place] jay congestive congestive 00 Me dical heart heart Branch failure failure Primary Primary Disease Active Univers hypertensi hypertensi 2-09 it y of on on 00:00: [place] [facility] Other Other Disease Active Univers hyperlipid hyperlipid 2-09 it y of emia emia 00:00: [facility] Branch Type 2 Type 2 Disease Active Univers diabetes diabetes 2-09 ity of mellitus mellitus 00:00: [place] with with 00 Medical kidney kidney Branch complicati complicati on, with on, with long-term long-term current current use of use of insulin insulin Coronary Coronary Disease Active Unive rs artery artery 2-09 ity of disease disease 00:00: [place] involving involving 00 Medi amena r[place] Branch coronary coronary artery of artery of rin[place] rincon heart heart without without angina angina pectoris pectoris Allergies, Adverse Reactions, Alerts Allergy Allergy Status Severity Reaction(s) Onset Inactive Treating Comm ents Source Name Type Date Date Clinician NO KNOWN Drug Active Univers ALLERGIE Class ity of S [facility] Social History Social Habit Start Date Stop Date Quantity Comments Source Exposure to 2022-11-19 2022-11-29 Not sure University SARS-CoV-2 00:00:00 13:21:00 [facility] (event) Branch Tobacco use and 2021-11-11 2021-11-11 Smokeless tobacco Un iversity of exposure 00:00:00 00:00:00 non-user [facility] Education 2021-11-11 2021-11-[address] [place] [address] 00:00:00 00:00:00 [facility] Sex Ass[birth year] At [birth year] Universit y of 00:00:00 00:00:00 [facility] Smoking Status Start Date Stop Date Source Never smoked tobacco [facility] Medications Ordered Filled Start Stop Current Ordering Indication Dosage Frequency Signature Comments Components Source Medication Medication Date Date Medication? Clinician (SIG) Name Name insulin Yes 20U inject 20 Unive rs detemir 2-22 Units ity of (LEVEMIR 13:15: [place] FLEXPEN [place] 09 skin Medical daily. Branch mornings foLIC acid 0 Yes 1mg Take 1 mg Un sivakumar 1 mg tablet 2-22 by mouth ity of 13:15: daily. [address] Branch clopidogreL 2022-0 Yes 75mg Take 75 mg Univers 75 mg 2-22 by mouth ity of tablet 13:15: daily. [address] Branch metoprolol 2022-0 Yes 100mg Take 100 Un sivakumar tartrate 2-22 mg by ity of 100 mg 13:15: mouth 2 [place] tablet 09 (two) Medical times Branch daily. atorvastati 2022-0 Yes 20mg Take 20 mg Univers n 20 mg 2-22 by mouth ity of tablet 13:15: at [place] [id number] bedtime. Medical Branch doxazosin 8 2022-0 Yes 8mg Take 8 mg U nivers mg tablet 2-22 by mouth 2 ity of 13:15: (two) [place] 09 times Medical daily. Branch acetaminoph 2022-0 Yes 500mg Take 500 U nivers en (TYLENOL 2-22 mg by ity of ARTHRITIS 13:15: [place] ORAL) 09 needed. Medical Branch amLODIPine 2022-0 Yes 5mg Take 5 mg Un sivakumar 10 mg 2-08 by mouth ity of tablet 00:00: in the [place] 00 morning Medical and 5 mg Branch in the evening. allopurinoL 2022-0 Yes 300mg Take 300 U nivers 300 mg 2-07 mg by ity of tablet 00:00: mouth in [place] 00 the Medical morning. Branch ergocalcife 2023- Yes [id number] Take Uni vers rol, 11-04- 50,000 ity of vitamin d2, 00:00: 05:59 Units by Jessica renteria 1,250 mcg 00 :00 mouth Medical (50,000 every 2 Branch unit) (two) capsule weeks. BD Yes 1{each} 1 Each as Unive rs ULTRAFINE 2- needed. ity of III MINI 00:00: [place] PEN Medical gauge x Branch 12/16" Ndle probenecid- Yes 1{tbl} Take 1 Un sivakumar colchicine 1-31 tablet by ity of 500-0.5 mg 00:00: mouth in [place] as per tablet 00 the Medical morning. Branch furosemide Yes 40mg Take 40 mg U nivers 40 mg 1-30 by mouth ity of tablet 00:00: in the [place] 00 morning. Medical Branch ramipriL 10 Yes 10mg Take 10 mg Univers mg capsule 1-30 by mouth ity o f 00:00: in the [place] 00 morning. Medical Branch ergocalcife 2021- No [id number] Take 1 Univers rol, 11-23 03-30 capsule by ity of vitamin d2, 00:00: 04:59 mouth [place] 1,250 mcg 00 :00 weekly for Medi amena (50,000 6 doses. Branch unit) capsule ergocalcife 2021- No [id number] Take 1 Univers rol, 11-23 03-30 capsule by ity of vitamin d2, 00:00: 04:59 mouth [place] 1,250 mcg 00 :00 weekly for Medi amena (50,000 6 doses. Branch unit) capsule allopurinoL Yes 200mg 200 mg, Un sivakumar (ZYLOPRIM) 2-15 Oral, ity of tablet 200 15:00: DAILY, [place] mg 00 First dose Medical (after Branch last modificati on) on Tue11/17/21 at 0900, Until Discontinu ed, Routine amLODIPine Yes 10mg 10 mg, Unive rs (NORVASC) 2-15 Oral, ity of tablet 10 15:00: DAILY, [place] mg 00 First dose Medical (after [place] last modificati on) on Tue11/17/21 at 0900, Until Discontinu ed, Routine allopurinoL 2021- No [id number] 200mg Take 2 Univers 100 mg 2-15 -18 tablets by ity of tablet 00:00: 04:59 mouth [place] 00 :00 daily for Medical 30 days. Branch amLODIPine 2021- No [id number] 10mg Take 1 Univers 10 mg 2-15 -18 tablet by ity of tablet 00:00: 04:59 mouth [place] 00 :00 daily for Medical 30 days. Branch allopurinoL 2021- No [id number] 200mg Take 2 Univers 100 mg 2-15 -18 tablets by ity of tablet 00:00: 04:59 mouth [place] 00 :00 daily for Medical 30 days. Branch amLODIPine 2021- No [id number] 10mg Take 1 Univers 10 mg 2-15 -18 tablet by ity of tablet 00:00: 04:59 mouth [place] 00 :00 daily for Medical 30 days. Branch predniSONE 2021- No [id number] 20mg Take 1 Univers 20 mg 2-15 -21 tablet by ity of tablet 00:00: 05:59 mouth [place] 00 :00 daily for Medical 5 days. Branch predniSONE 2021- No [id number] 20mg Take 1 Univers 20 mg 2-15 -21 tablet by ity of tablet 00:00: 05:59 mouth [place] 00 :00 daily for Medical 5 days. Branch insulin Yes 20U inject 20 Unive rs detemir 2-14 Units ity of (LEVEMIR 19:47: [place] FLEXPEN [place]) 22 skin Medical daily. Branch foLIC acid Yes 1mg Take 1 mg Un sivakumar 1 mg tablet 2-14 by mouth ity of 19:47: daily. [address] Branch clopidogreL Yes 75mg Take 75 mg Univers 75 mg 2-14 by mouth ity of tablet 19:47: daily. [address] Branch metoprolol Yes 100mg Take 100 Un sivakumar tartrate 2-14 mg by ity of 100 mg 19:47: mouth 2 [place] tablet 22 (two) Medical times Branch daily. atorvastati 2021-0 Yes 20mg Take 20 mg Univers n 20 mg 2-14 by mouth ity of tablet 19:47: at [place] 22 bedtime. Medical Branch doxazosin 8 2021-0 Yes 8mg Take 8 mg U nivers mg tablet 2-14 by mouth 2 ity of 19:47: (two) [place] 22 times Medical daily. Branch acetaminoph 2021-0 Yes 500mg Take 500 U nivers en (TYLENOL 2-14 mg by ity of ARTHRITIS 19:47: mouth [place] ORAL) 22 needed. Medical Branch insulin 2021-0 Yes 20U inject 20 Unive rs detemir 2-14 Units ity of (LEVEMIR 19:47: under the [place] FLEXPEN [place]) 22 skin Medical daily. Branch foLIC acid 0 Yes 1mg Take 1 mg Un sivakumar 1 mg tablet 2-14 by mouth ity of 19:47: daily. [place] [address] Medical Branch clopidogreL 2021-0 Yes 75mg Take 75 mg Univers 75 mg 2-14 by mouth ity of tablet 19:47: daily. [place] [address] Medical Branch metoprolol 0 Yes 100mg Take 100 Un sivakumar tartrate 2-14 mg by ity of 100 mg 19:47: mouth 2 [place] tablet 22 (two) Medical times Branch daily. atorvastati 2021-0 Yes 20mg Take 20 mg Univers n 20 mg 2-14 by mouth ity of tablet 19:47: at [place] 22 bedtime. Medical Branch doxazosin 8 0 Yes 8mg Take 8 mg U nivers mg tablet 2-14 by mouth 2 ity of 19:47: (two) [place] 22 times Medical daily. Branch acetaminoph 0 Yes 500mg Take 500 U nivers en (TYLENOL 2-14 mg by ity of ARTHRITIS 19:47: mouth [place] ORAL) 22 needed. Medical Branch insulin 2021-0 Yes 20U inject 20 Unive rs detemir 2-14 Units ity of (LEVEMIR 19:47: under the [place] FLEXPEN [place]) 22 skin Medical daily. Branch foLIC acid 2021-0 Yes 1mg Take 1 mg Un sivakumar 1 mg tablet 2-14 by mouth ity of 19:47: daily. [place] [address] Medical Branch clopidogreL 2022-0 Yes 75mg Take 75 mg Univers 75 mg 2-14 by mouth ity of tablet 19:47: daily. [place] [address] Medical Branch metoprolol 0 Yes 100mg Take 100 Un sivakumar tartrate 2-14 mg by ity of 100 mg 19:47: mouth 2 [place] tablet 22 (two) Medical times [place] daily. atorvastati 0 Yes 20mg Take 20 mg Univers n 20 mg 2-14 by mouth ity of tablet 19:47: at [place] 22 bedtime. Medical Branch doxazosin 8 0 Yes 8mg Take 8 mg U nivers mg tablet 2-14 by mouth 2 ity of 19:47: (two) [place] 22 times Medical daily. Branch acetaminoph 0 Yes 500mg Take 500 U nivers en (TYLENOL 2-14 mg by ity of ARTHRITIS 19:47: mouth [place] ORAL) 22 needed. Medical Branch insulin 0 Yes 20U inject 20 Unive rs detemir 2-14 Units ity of (LEVEMIR 19:47: under the [place] FLEXPEN [place]) 22 skin Medical daily. Branch foLIC acid Yes 1mg Take 1 mg Un sivakumar 1 mg tablet 2-14 by mouth ity of 19:47: daily. [place] [address] Medical Branch clopidogreL 0 Yes 75mg Take 75 mg Univers 75 mg 2-14 by mouth ity of tablet 19:47: daily. [place] [address] Medical Branch metoprolol 0 Yes 100mg Take 100 Un sivakumar tartrate 2-14 mg by ity of 100 mg 19:47: mouth 2 [place] tablet 22 (two) Medical times [place] daily. atorvastati 0 Yes 20mg Take 20 mg Univers n 20 mg 2-14 by mouth ity of tablet 19:47: at [place] 22 bedtime. Medical Branch doxazosin 8 0 Yes 8mg Take 8 mg U nivers mg tablet 2-14 by mouth 2 ity of 19:47: (two) [place] 22 times Medical daily. Branch acetaminoph 0 Yes 500mg Take 500 U nivers en (TYLENOL 2-14 mg by ity of ARTHRITIS 19:47: mouth [place] ORAL) 22 needed. Medical Branch insulin 2021-0 Yes 20U inject 20 Unive rs detemir 2-14 Units ity of (LEVEMIR 19:47: under the [place] FLEXPEN [place]) 22 skin Medical daily. Branch foLIC acid Yes 1mg Take 1 mg Un sivakumar 1 mg tablet 2-14 by mouth ity of 19:47: daily. [place] 22 Medical Branch clopidogreL Yes 75mg Take 75 mg Univers 75 mg 2-14 by mouth ity of tablet 19:47: daily. [place] [address] Medical Branch metoprolol 0 Yes 100mg Take 100 Un sivakumar tartrate 2-14 mg by ity of 100 mg 19:47: mouth 2 [place] tablet 22 (two) Medical times Branch daily. atorvastati Yes 20mg Take 20 mg Univers n 20 mg 2-14 by mouth ity of tablet 19:47: at [place] 22 bedtime. Medical Branch doxazosin 8 Yes 8mg Take 8 mg U nivers mg tablet 2-14 by mouth 2 ity of 19:47: (two) [place] 22 times Medical daily. Branch acetaminoph Yes 500mg Take 500 U nivers en (TYLENOL 2-14 mg by ity of ARTHRITIS 19:47: mouth [place] ORAL) 22 needed. Medical Branch probenecid- 2021- No 1{tbl} Take 1 U nivers colchicine 11-16 tablet by ity of 500-0.5 mg 18:18: 00:00 mouth [place] per tablet 41 :00 daily. Medical Branch furosemide 2021- No 40mg Take 40 mg Univers 40 mg 11-16 by mouth ity of tablet 18:18: 00:00 daily. [place] 41 :00 Medical Branch hydrALAZINE 2021- No 100mg Take 100 Univers 100 mg 11-16- mg by ity of tablet 18:18: 00:00 mouth 2 [place] 41 :00 (two) Medical times Branch daily. amLODIPine 2021- No 5mg Take 5 mg U nivers 5 mg tablet 11-16 by mouth ity of 18:18: 00:00 daily. [place] 41 :00 Medical Branch colchicine 2021- No .6mg 0.6 mg, Uni vers (COLCRYS) -14 02-14 Oral, ONCE ity of tablet 0.6 17:00: 18:04 NOW, 1 [place] mg 00 :00 dose, On Medical Mon Branch 11/16/21 at 1100, Routine iron 2021- No 200mg 200 mg, IV Unive rs sucrose 11-1614 Infusion, ity of (VENOFER) 16:45: 20:34 ONCE, [place] 200 mg in 00 :00 Administer Medi amena NaCl 0.9% over 2.5 Branch (NS) 100 mL Hours, On infusion 11/16/21 at 1045, For 1 dose ergocalcife Yes [id number] 50,000 Un sivakumar rol 214 Units, ity of (vitamin 15:35: Oral, [place] d2) 48 QWEEKLY, Medical (CALCIFEROL First dose Br anch ) capsule (after 50,000 last Units modificati on) on Tue11/16/21 at 0945, Until Discontinu ed, Routine HYDROcodone Yes 1{tbl} 1 tablet, Univers -acetaminop 11-16 Oral, ity of hen (NORCO 05:59: Q6HPRN, [place] 5) 5-325 mg 37 Starting Medi amena tablet 1 on [place] Branch tablet 11/15/21 at 2359, Until Discontinu ed, Routine, Pain (scale 4-6) hydralAZINE Yes 10mg 10 mg, Univ ers (APRESOLINE 2-13 Slow IV ity o f ) injection 06:23: Push, [place] 10 mg 07 Q4HPRN, Medical Starting Branch on [place] 11/15/21 at 0023, Until Discontinu ed, Routine, DBP=>10 0; SBP=>160, DBP=>100; SBP=>180<b r>Indicati on: Hypertensi ve Emergency ergocalcife 2021- No [id number] 50,000 U nivers rol 11-1314 Units, ity of (vitamin 20:40: 15:35 Oral, [place] d2) 36 :57 QWEEKLY, Medical (CALCIFEROL First dose Br anch ) capsule (after 50,000 last Units modificati on) on Tue11/13/21 at 1445, Until Discontinu ed, Routine predniSONE Yes 20mg 20 mg, Unive rs (DELTASONE) 11-13 Oral, ity of tablet 20 15:00: DAILY, [place] mg 00 First dose Medical on Tue Branch 11/13/21 at 0900, Until Discontinu ed, Routine epoetin 2021- No [id number] 10,000 Unive rs gera-epbx 11-13 Units, ity of (RETACRIT) 15:00: 02:55 Subcutaneo [place] injection 00 :00 us, ONCE Medica l 10,000 AT 2000, 1 Branch Units dose, On Tue11/13/21 at 0900, Routine
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 approving Restricted medication : SARAHI MELISSA Tae iron No 300mg 300 mg, IV Unive rs sucrose 11-12 Infusion, ity of (VENOFER) 16:00: 18:50 DAILY, [place] 300 mg in 00 :00 Administer Medi amean NaCl 0.9% over 4 Branch (NS) 250 mL Hours, infusion First dose on Tue11/12/21 at 1000, For 3 doses ergocalcife 2021- No [id number] 50,000 U nivers rol 11-12 Units, ity of (vitamin 15:45: 20:40 Oral, [place] d2) 47 :49 QWEEKLY, Medical (CALCIFEROL First dose Br anch ) capsule on [place] 50,000 11/12/21 at Units 1000, Until Discontinu ed, Routine allopurinoL 2021- No 100mg 100 mg, U nivers (ZYLOPRIM) 11-12 Oral, ity of tablet 100 15:45: 15:58 DAILY, [place] mg 00 :05 First dose Medical on [place] Branch 11/12/21 at 0945, Until Discontinu ed, Routine colchicine 2021- No .6mg 0.6 mg, Uni vers (COLCRYS) 11-12 Oral, ity of tablet 0.6 15:45: 14:40 DAILY, 2 [place] mg 00 :00 doses, Medical First dose Branch on Tue11/12/21 at 0945, Last dose on Tue11/13/21 at 0900, Routine docusate Yes 100mg 100 mg, Unive rs (COLACE) 210 Oral, ity of capsule 100 15:00: DAILY, [place] mg 00 First dose Medical on [facility] 11/12/21 at 0900, Until Discontinu ed, Routine clopidogreL Yes 75mg 75 mg, Univ ers (PLAVIX) 210 Oral, ity of tablet 75 15:00: DAILY, [place] mg 00 First dose Medical on [facility] Branch 11/12/21 at 0900, Until Discontinu ed, Routine amLODIPine No 5mg 5 mg, Unive rs (NORVASC) 11-12 Oral, ity of tablet 5 mg 15:00: 15:49 DAILY, [place] as 00 :25 First dose Medical on [facility] 11/12/21 at 0900, Until Discontinu ed, Routine cefTRIAXone No 1000mg 1,000 mg, Univers (ROCEPHIN) 11-12 IV ity of 1,000 mg in 14:45: 20:01 [place], [place] NaCl 0.9% 00 :34 Q24H ABX, Medic al (NS) 50 mL First dose Bra [facility] MINI-BAG on [facility] 11/12/21 at 0845, Until Discontinu ed, Administer over 30 Minutes, 50 mL
Reas on for Anti-Infec tive: Empiric Therapy for Suspected Infection< br>Empiric Therapy Site: Skin / Soft tissue
Duration of therapy: 7 days methylPREDN No 40mg 40 mg, Uni vers ISolone sod 11-12 Slow IV ity of succ 14:45: 14:36 [facility], [place] (SOLU-MEDRO 00 :00 ONCE, 1 Medic al L (PF)) dose, On Branch injection [place] 40 mg 11/12/21 at 0845, 1 mL doxycycline No 100mg 100 mg, IV Univers (VIBRAMYCIN 11-12 Piggyback, i ty of ) 100 mg in 14:45: 20:01 Q12H ABX, [place] NaCl 0.9% 00 :09 First dose Medi amena (NS) 100 mL on [facility] Branch MINI-BAG 11/12/21 at 0845, Until Discontinu ed, Administer over 60 Minutes, 100 mL
Reas on for Anti-Infec tive: Empiric Therapy for Suspected Infection< br>Empiric Therapy Site: Skin / Soft tissue
Duration of therapy: 7 days Sliding 2021-0 Yes Subcutaneo Univ ers Scale 2-10 us, TID ity of Insulin - 14:00: MEALS, [place] Lispro 00 First dose Medical (HumaLOG) + on [place] Branch Fsbg 11/12/21 at Testing 0800, Until Discontinu ed, Routine atorvastati 2021-0 Yes 20mg 20 mg, Univ ers n (LIPITOR) 2-10 Oral, QHS, it y of tablet 20 03:00: First dose [place] mg 00 on Tue Medical 11/11/21 at Branch 2100, Until Discontinu ed, Routine lactobacill 2021-0 Yes .5mg 0.5 mg, Uni vers us 2-10 Oral, BID, ity of acidophilus 02:45: First dose [place] tablet 0.5 00 on Tue Medical mg 11/11/21 at Branch 204, Until Discontinu ed, Routine heparin 2021-0 Yes 5000U 5,000 Univers (porcine) 2-10 Units, ity of injection 02:00: Subcut[place]o [place] 5,000 Units 00 us, Q12H, Med ical First dose Branch on Tue11/11/21 at 2000, Until Discontinu ed, Routine metoprolol 0 Yes 100mg 100 mg, Uni vers tartrate 2-10 Oral, BID, ity o f (LOPRESSOR) 02:00: First dose [place] tablet 100 00 on Tue Medical mg 11/11/21 at Branch 2000, Until Discontinu ed, Routine doxazosin 2021-0 Yes 8mg 8 mg, Univers (CARDURA) 2-10 Oral, BID, ity of tablet 8 mg 02:00: First dose [place] 00 on Tue Medical 11/11/21 at Branch 1999, Until Discontinu ed, Routine furosemide 2021-0 2021- No 40mg 40 mg, Univ ers (LASIX) 2-10 02-10 Slow IV ity of injection 02:00: 13:37 Push, [place] 40 mg 00 :14 Q12H, Medical First dose Branch on Tue11/11/21 at 2000, Until Discontinu ed, Routine vancomycin 2021-0 2021- No 1000mg 1,000 mg, Univers (VANCOCIN) 211-12 IV ity of 1,000 mg in 02:00: 13:31 [place], [place] NaCl 0.9% 00 :47 Q48H ABX, Medic al (NS) 250 mL First dose Br anch VIAL-MATE on Tue IV 11/11/21 at [facility] 2000, Until Discontinu ed, Administer over 60 Minutes, 250 mL
Reas on for Anti-Infec tive: Documented Infection< br>Documen kateryna Infection Site: Skin / Soft Tissue
Duration of Therapy: 7 days glucagon 2021-0 Yes 1mg 1 mg, Univers (GLUCAGEN 2-10 Intramuscu ity of DIAGNOSTIC 00:31: [place], [place]N, [place] KIT) 19 Starting Medical injection 1 on Tue Branch mg 11/11/21 at 1831, Until Discontinu ed, JENNIFER, Blood Glucose < or = 70 mg/dL and patient is unable to swallow or has mental changes. dextrose 50 0 Yes 25mL 25 mL, Univ ers % in water 2-10 Slow IV ity of (D50W) 00:31: Push, PRN, [place] injection 19 Starting Medica l 25 mL on Tue Branch 11/11/21 at 1831, Until Discontinu ed, JENNIFER, Blood Glucose < or = 70 mg/dL and patient is unable to swallow or has mental status changes. ondansetron 0 Yes 4mg 4 mg, Slow Univers (ZOFRAN 11-11 IV [place], ity of (PF)) 19:59: [place], [place] injection 4 50 Starting Medi amena mg on Tue Branch 11/11/21 at 1359, Until Discontinu ed, Routine, Nausea and Vomiting (N/V) morpHINE 2021-0 2021- No 4mg 4 mg, Slow Un sivakumar injection 4 11-1110 IV Push, ity of mg 19:59: 19:58 [place], [place] 29 :29 Starting Medical on Tue Branch 11/11/21 at 1359, Until [place] 11/12/21 at 1358, Routine, Pain (scale 7-10) HYDROcodone 2021-0 2021- No 1{tbl} 1 tablet, Univers -acetaminop 2-09 02-11 Oral, ity of hen (NORCO 19:59: 19:58 Q6HPRN, [place] as 5) 5-325 mg 26 :26 Starting Medi amena tablet 1 on Tue Branch tablet 11/11/21 at 1359, Until 11/13/21 at 1358, Routine, Pain (scale 4-6) acetaminoph Yes 650mg 650 mg, Un sivakumar en 11-11 Oral, ity of (TYLENOL) 19:59: Q6HPRN, [place] tablet 650 22 Starting Medic al mg on Tue Branch 11/11/21 at 1359, Until Discontinu ed, Routine, Pain (scale 1-3) cefTRIAXone 2021- No 1000mg 1,000 mg, Univers (ROCEPHIN) 11-11 IV ity of 1,000 mg in 15:45: 16:00 [facility], [place] NaCl 0.9% 00 :00 ONCE, 1 Medical (NS) 50 mL dose, On [facility] h MINI-BAG 11/11/21 at 0945, Administer over 30 Minutes, 50 mL
R elise for Anti-Infec tive: Empiric Therapy for Suspected Infection< br>Empiric Therapy Site: Skin / Soft tissue
Duration of therapy: 72 hours HYDROcodone 2021-2021- No 1{tbl} 1 tablet, Univers -acetaminop 11-11 Oral, ity of hen (NORCO) 15:00: 14:09 ONCE, 1 [place] 10-325 mg 00 :00 dose, On Medica l tablet 1 Tue11/11/21 [facility] h tablet at 0900, Routine furosemide 2021- No 40mg 40 mg, IV U nivers (LASIX) 11-11 Push, ity of injection 15:00: 14:10 ONCE, 1 [place] 40 mg 00 :00 dose, On Medical 11/11/21 Branch at 0900, JENNIFER Immunizations Ordered Filled Immunization Date Status Comments Sour e Immunization Name Name Influenza Virus 2016-12-17 Completed Universit y of Vaccine (3+ yrs) 00:00:00 [facility] dical Branch Pneumococcal 2016-12-17 Completed [place] o f Polysaccharide, 00:00:00 [place] Med ical PPSV23 (PNEUMOVAX) Branch Influenza Virus 2016-12-17 Completed Universit y of Vaccine (3+ yrs) 00:00:00 [facility] dical Branch Pneumococcal 2016-12-17 Completed University o f Polysaccharide, 00:00:00 [place] Med ical PPSV23 (PNEUMOVAX) Branch Influenza Virus 2016-12-17 Completed Universit y of Vaccine (3+ yrs) [facility]00[facility]00 [facility] 2016-12-17 Completed University o f Polysaccharide, 00:00:00 [place] Med ical PPSV23 (PNEUMOVAX) Branch Influenza Virus 2016-12-17 Completed Universit y of Vaccine (3+ yrs) 00:00:00 [facility] Branch Pneumococcal 2016-12-17 Completed University o f Polysaccharide, 00:00:00 [place] Med ical PPSV23 (PNEUMOVAX) Branch Influenza Virus 2016-12-17 Completed Universit y of Vaccine (3+ yrs) 00:00:00 [facility] Branch Pneumococcal 2016-12-17 Completed University o f Polysaccharide, 00:00:00 [place] Med ical PPSV23 (PNEUMOVAX) Branch Influenza Virus 2016-12-17 Completed Universit y of Vaccine (3+ yrs) 00:00:00 [facility] Branch Pneumococcal 2016-12-17 Completed University o f Polysaccharide, 00:00:00 [place] Med ical PPSV23 (PNEUMOVAX) Branch Influenza Virus 2013-09-09 Completed Universit y of Vaccine (3+ yrs) 00:00:00 [facility] Branch Pneumococcal 2013-09-09 Completed University o f Polysaccharide, 00:00:00 [place] Med ical PPSV23 (PNEUMOVAX) Branch Influenza Virus 2013-09-09 Completed Universit y of Vaccine (3+ yrs) 00:00:00 [facility] Branch Pneumococcal 2013-09-09 Completed University o f Polysaccharide, 00:00:00 [place] Med ical PPSV23 (PNEUMOVAX) Branch Influenza Virus 2013-09-09 Completed Universit y of Vaccine (3+ yrs) 00:00:00 [facility] Branch Pneumococcal 2013-09-09 Completed University o f Polysaccharide, 00:00:00 [place] [facility] PPSV23 (PNEUMOVAX) Branch Influenza Virus 2013-09-09 Completed Universit y of Vaccine (3+ yrs) 00:00:00 [place] [facility] Pneumococcal 2013-09-09 Completed University o f Polysaccharide, 00:00:00 [place] [facility] PPSV23 (PNEUMOVAX) Branch Influenza Virus 2013-09-09 Completed Universit y of Vaccine (3+ yrs) 00:00:00 [facility] dical Branch Pneumococcal 2013-09-09 Completed University o f Polysaccharide, 00:00:00 [place] [facility] PPSV23 (PNEUMOVAX) Branch Influenza Virus 2013-09-09 Completed Universit y of Vaccine (3+ yrs) 00:00:00 [facility] dical Branch Pneumococcal 2013-09-09 Completed [place] o f Polysaccharide, 00:00:00 [place] [facility] ical PPSV23 (PNEUMOVAX) Branch Vital Signs Vital Name Observation Time Observation Value Comments Source Systolic blood 2021-11-16 21:36:00 148 mm[Hg] Univer sit of [facility] Diastolic blood 2021-11-16 21:36:00 79 mm[Hg] Unive [facility] Heart rate 2021-11-16 21:36:00 73 /min [facility] Body temperature 2021-11-16 21:36:00 36.39 [facility] Respiratory rate 2021-11-16 21:36:00 18 /min [facility] Oxygen saturation in 2021-11-16 21:36:00 98 /min [facility] Arterial blood by [facility] Pulse oximetry Branch Body weight 2021-11-15 09:18:00 76.476 kg [facility] BMI 2021-11-15 09:18:00 30.84 kg/m2 [facility] Body height 2021-11-11 19:00:00 157.5 cm [facility] Procedures Procedure Date / Time Performing Clinician Source Performed CONSENT/REFUSAL FOR 2022-11-18 19:51:01 Doctor Unassigned, [facility] DIAGNOSIS AND TREATMENT [place] [facility] ASSIGNMENT OF BENEFITS 2022-11-18 19:50:44 Doctor Ana, [facility] [place] [facility] EXTERNAL PROVIDER RECORDS 2022-08-04 05:01:00 Doctor Ana, [facility] [place] [facility] REFERRAL- 2022-07-29 05:01:00 Doctor Nolbertoigned, [facility] REQUEST/RESPONSE [place] [facility] POCT GLUCOSE (AUTOMATED) 2021-11-16 22:40:00 Shashi Ellsworth versity of [facility] US FOOT LEFT 2021-11-16 21:09:29 Margaret Hernandez [facility] US FOOT RIGHT 2021-11-16 21:09:07 Margaret Hernandez [facility] BASIC METABOLIC PANEL 2021-11-16 17:35:00 Margaret Hernandez [facility] [place] (NA, K, CL, CO2, GLUCOSE, Medica l Branch BUN, CREATININE, CA) CBC WITH DIFF 2021-11-16 17:34:00 Margaret Hernandez [facility] POCT GLUCOSE (AUTOMATED) 2021-11-16 17:08:00 Shashi Ellsworth Uni versity of [facility] POCT GLUCOSE (AUTOMATED) 2021-11-16 13:25:00 Shashi Ellsworth versity of [facility] AMMONIA, PLASMA 2021-11-15 23:35:00 Margaret Hernandez [facility] POCT GLUCOSE (AUTOMATED) 2021-11-15 22:42:00 Shashi Ellsworth Uni versity of [facility] POCT GLUCOSE (AUTOMATED) 2021-11-15 17:41:00 Shashi Ellsworth versity of [facility] POCT GLUCOSE (AUTOMATED) 2021-11-15 13:29:00 Shashi Ellsworth versity of [facility] BASIC METABOLIC PANEL 2021-11-15 10:52:00 Margaret Hernandez [facility] [place] (NA, K, CL, CO2, GLUCOSE, Medica l Branch BUN, CREATININE, CA) CBC WITH DIFF 2021-11-15 10:52:00 Margaret Hernandez [facility] POCT GLUCOSE (AUTOMATED) 2021-11-15 01:51:00 Shashi Ellsworth versity of [facility] POCT GLUCOSE (AUTOMATED) 2021-11-14 22:28:00 Shashi Ellsworth Uni versity of [facility] POCT GLUCOSE (AUTOMATED) 2021-11-14 17:37:00 Shashi Ellsworth Uni versity of [facility] POCT GLUCOSE (AUTOMATED) 2021-11-14 13:32:00 Shashi Ellsworth [facility] PHOSPHORUS 2021-11-14 10:47:00 Melissa Quesada [facility] URIC ACID 2021-11-14 10:47:00 Melissa Quesada [facility] MAGNESIUM 2021-11-14 10:47:00 Melissa Quesada [facility] COMP. METABOLIC PANEL 2021-11-14 10:47:00 Melissa Quesada [facility] ([id number]) [facility] VANCOMYCIN RANDOM LEVEL 2021-11-14 10:47:00 Shashi Ellsworth [facility] CBC WITH DIFF 2021-11-14 10:47:00 Melissa Quesada [facility] HEPATITIS B SURFACE 2021-11-14 10:47:00 Melissa Quesada [facility] ANTIBODY [facility] HEPATITIS B SURFACE 2021-11-14 10:47:00 Melissa Quesada [facility] ANTIGEN [facility] HBC ANTIBODY (IGM & IGG) 2021-11-14 10:47:00 [facility] 2021-11-14 01:23:00 Shashi Ellsworth [facility] POCT GLUCOSE (AUTOMATED) 2021-11-13 22:39:00 Shashi Ellsworth [facility] POCT GLUCOSE (AUTOMATED) 2021-11-13 17:42:00 Shashi Ellsworth [facility] POCT GLUCOSE (AUTOMATED) 2021-11-13 13:47:00 [facility] BASIC METABOLIC PANEL 2021-11-13 10:40:00 [facility] (NA, K, CL, CO2, GLUCOSE, Medica l Branch BUN, CREATININE, CA) CBC WITH DIFF 2021-11-13 10:40:00 Joseph Orlando [facility] N-TERMINAL PRO-BNP 2021-11-13 10:40:00 Joseph Orlando [facility] TROPONIN I 2021-11-13 05:24:00 Joseph Orlando [facility] TROPONIN I 2021-11-12 22:53:00 Joseph Orlando [facility] BASIC METABOLIC PANEL 2021-11-12 22:53:00 Lisa Angulo [facility] (NA, K, CL, CO2, GLUCOSE, Medica l Branch BUN, CREATININE, CA) BLOOD CULTURE SCREEN 2021-11-12 22:52:00 Lisa Angulo [facility] POCT GLUCOSE (AUTOMATED) 2021-11-12 22:38:00 Shashi Ellsworth [facility] POCT GLUCOSE (AUTOMATED) 2021-11-12 17:37:00 Shashi Ell[facility] TRANSTHORACIC ECHO (TTE) 2021-11-12 16:20:00 Joseph Orlando [facility] POCT GLUCOSE (AUTOMATED) 2021-11-12 15:35:00 Shashi Ellsworth [facility] MAGNESIUM 2021-11-12 12:04:00 Joseph Orlando [facility] TROPONIN I 2021-11-12 12:04:00 [facility] BASIC METABOLIC PANEL 2021-11-12 12:04:00 [facility] (NA, K, CL, CO2, GLUCOSE, Medica l Branch BUN, CREATININE, CA) DIFF CONSULT 2021-11-12 12:04:00 Lisa Angulo [facility] CBC WITH DIFF 2021-11-12 12:04:00 Joseph Orlando [facility] BLOOD CULTURE SCREEN 2021-11-12 06:22:00 Lisa Angulo [facility] SEDIMENTATION RATE 2021-11-12 06:21:00 Lisa Angulo [facility] VITAMIN D, 25-OH 2021-11-12 06:21:00 Joseph Orlando [facility] PROCALCITONIN 2021-11-12 06:21:00 Lisa Angulo [facility] CREATINE KINASE 2021-11-12 06:20:00 Kev [facility] TROPONIN I 2021-11-12 06:20:00 Lisa Angulo [facility] LIPID PANEL ([id number])(TOTAL 2021-11-12 06:20:00 Darion [facility] CHOLESTEROL, [facility] TRIGLYCERIDES, HDL) IRON PANEL 2021-11-12 06:20:00 Joseph Orlando [facility] PHOSPHORUS 2021-11-12 06:19:00 Kev lincoln [facility] MAGNESIUM 2021-11-12 06:19:00 Kev lincoln [facility] VITAMIN B12, LEVEL 2021-11-12 06:19:00 Joseph Orlando [facility] FOLATE 2021-11-12 06:19:00 Darion [facility] LIPID PANEL ([id number])(TOTAL 2021-11-12 06:19:00 Lisa Angulo [facility] CHOLESTEROL, [facility] TRIGLYCERIDES, HDL) PROTHROMBIN TIME / INR 2021-11-12 06:18:00 Lisa Angulo [facility] OSMOLALITY URINE 2021-11-12 05:56:00 Kev [facility] URINALYSIS 2021-11-12 05:56:00 Kev [facility] PROTEIN CREAT RATIO URINE 2021-11-12 05:56:00 Lisa Angulo [facility] UREA NITROGEN, URINE 2021-11-12 05:56:00 Lisa Angulo [facility] SODIUM, URINE RANDOM 2021-11-12 05:56:00 Lisa Angulo [facility] URINE CULTURE 2021-11-12 05:55:00 Kev [facility] COVID-19 (ID NOW RAPID 2021-11-11 15:36:00 Cachorro Malcolm [facility] TESTING) Medical Branch LAB ONLY COVID 2021-11-11 15:36:00 Singer [facility] INTERPRETATION [facility] Branch XR CHEST 1 VW 2021-11-11 14:17:45 Singer [facility] URIC ACID 2021-11-11 14:07:00 Singer [facility] TROPONIN I 2021-11-11 14:07:00 Singer [facility] COMP. METABOLIC PANEL 2021-11-11 14:07:00 Cachorro Malcolm [facility] ([id number]) [facility] CBC WITH DIFF 2021-11-11 14:07:00 Singer [facility] GLYCOSYLATED HEMOGLOBIN 2021-11-11 14:07:00 Joseph Orlando [facility] (A1C) [facility] N-TERMINAL PRO-BNP 2021-11-11 14:07:00 Singer Cachorro [facility] EKG-12 LEAD 2021-11-11 13:57:33 Singer [facility] NOTICE OF PRIVACY 2021-11-11 13:40:03 Doctor Unassigned, [facility] PRACTICES [place] [facility] CONSENT/REFUSAL FOR 2021-11-11 13:39:41 Doctor Unassigned, [facility] DIAGNOSIS AND TREATMENT [place] [facility] Encounters Start End Encounter Admission Attending Care Care Encounter Source Date/Time Date/Time Type Type Clinicians Facility Department ID 2022-11-23 Outpatient Padmini LUIS [facility] [id number] Univers 13:31:39 [facility] 2022-11-29 2022-11-29 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 1.2.8 40.114 [id number] Univers 13:00:00 13:15:00 Visit Jaime Luis 350.1.13.10 [facility] 4.2.7.2.686 Nabor SANTIAGO [id number] Fl dical NAL 353 Branch BUILDING 2022-11-29 2022-11-29 Outpatient Padmini LUIS [facility] [id number] Univers 13:00:00 13:00:00 JAIME [facility] 2022-11-18 2022-11-18 Outpatient Padmini LUIS [facility] [id number] Univers 14:15:00 14:21:29 JAIME [facility] 2022-11-18 2022-11-18 Orders Doctor ELIZABETH [id number] Univers 00:00:00 00:00:00 Only Unassigned, DARNELL 350.1.13.10 ity of [place] [facility] 4.2.7.2.686 Ramirez as [id number] [facility] [address] [place] 2022-08-04 2022-08-04 Orders Doctor ELIZABETH [id number] Univers 00:00:00 00:00:00 Only Unassigned, DARNELL 350.1.13.10 ity [facility] [place] [facility] 4.2.7.2.686 Ramirez as [id number] [facility] 009 Branch 2022-07-29 2022-07-29 Orders Doctor ELIZABETH [id number] Univers 00:00:00 00:00:00 Only Unassigned, DARNELL 350.1.13.10 ity [facility] [place] [facility] 4.2.7.2.686 Ramirez as [phone] [facility] 009 Branch 2021-11-17 2021-11-17 Transition AVILA Garcia [id number] Univers 00:00:00 00:00:00 of Care Clara SANCHEZ 350.1.13.10 it y of [place] [id number] [facility] 403 Branch 2021-11-11 2021-11-16 [facility] Cachorro [facility] 1.2.840.1 [id number] Univers 07:40:00 19:47:00 Encounter Shashi Ellsworth 350.1.13.10 ity of [place] 4.2.7.2.686 [facility] [id number] [facility] 081 Branch 2021-11-11 2021-11-16 Inpatient X DANIELA CAROSELYN URMILA [id number] Univers 07:40:00 19:47:00 KAT josephy [facility] Results Test Description Test Time Test Comments Results Result Comments Source POCT GLUCOSE (AUTOMATED) 2021-11-16 23:00:35 Test Item Value Reference Range Interpretation Comme nts POCT GLU (test code = 2022271008) 138 mg/dL 70-110 H Lab Interpretation (test code = 31720-5) Abnormal [facility] WITH [id number] 20:00:49 Test Item Value Reference Range Interpretation Comments WBC (test code = See_Comment H [Automated 6690-2) message] The system which generated this result transmit kateryna reference range : 4.20 - 10.70 10*3/?L. The reference range was not used to interpret this result as normal/abnormal . RBC (test code = See_Comment L [Automated 789-8) message] The system which generated this result transmit kateryna reference range : 4.26 - 5.52 10*6/?L. The reference range was not used to interpret this result as normal/abnormal . HGB (test code = 11.0 g/dL 12.2-16.4 L 718-7) HCT (test code = 32.6 % 38.4-49.3 L 4544-3) MCV (test code = 83.0 fL 81.7-95.6 787-2) MCH (test code = 28.0 pg 26.1-32.7 785-6) MCHC (test code = 33.7 g/dL 31.2-35.0 786-4) RDW-SD (test code = 43.1 fL 38.5-51.6 46441-1) RDW-CV (test code = 14.4 % 12.1-15.4 788-0) PLT (test code = See_Comment H [Automated 777-3) message] The system which generated this result transmit kateryna reference range : 150 - 328 10*3/ ?L. The reference range was not u sed to interpret th is result as normal/abnormal . MPV (test code = 10.5 fL 9.8-13.0 55347-3) NRBC/100 WBC (test See_Comment [Automat ed code = 2673643120) message] The system which generated this result transmit kateryna reference range : 0.0 - 10.0 /100 WBCs. The reference range was not used to interpret this result as normal/abnormal . NRBC x10^3 (test code See_Comment [Auto mated = 4573622890) message] The system which generated this result transmit kateryna reference range : 10*3/?L. The reference range was not used to interpret this result as normal/abnormal . SEG % (test code = 61 % 33-76 56632-7) BAND % (test code = 16 % 0-1 H 78414-7) META % (test code = 3 % See_Comment H [Automa kateryna 17813-7) message] The system which generated this result transmit kateryna reference range : <=0. The refere nce range was not u sed to interpret th is result as normal/abnormal . MYELO % (test code = 4 % See_Comment H [Autom ated 72323-3) message] The system which generated this result transmit kateryna reference range : <=0. The refere nce range was not u sed to interpret th is result as normal/abnormal . LYMPH % (test code = 13 % 14-54 L 14021-2) MONO % (test code = 3 % 0-4 01450-3) ANC (test code = 15.55 10*3/uL 1.99-6.95 H 753-4) BASO STIPPLING (test Present A code = 703-9) POLYCHROMASIA (test 2+ See_Comment [Automa kateryna code = 73569-6) message] The system which generated this result transmit kateryna reference range : 2+. The referen ce range was not u sed to interpret th is result as normal/abnormal . SIDEROTIC GRAN (test Suggestive of A code = 7795-8) GIANT PLATELETS (test Present See_Comment A [Auto mated code = 5908-9) message] The system which generated this result transmit kateryna reference range : (none). The reference range was not used to interpret this result as normal/abnormal . Lab Interpretation Abnormal (test code = 99767-8) [facility] (NA, K, CL, CO2, GLUCOSE, BUN, CREATININE, CA)2021-11-16 17:59:36 Test Item Value Reference Range Interpretation Comments NA (test code = 141 mmol/L 135-145 7716572158) K (test code = 4.3 mmol/L 3.5-5.0 9292771858) CL (test code = 112 mmol/L 98-108 H 9500082790) CO2 TOTAL (test code = 22 mmol/L 23-31 L 0641800424) AGAP (test code = 2-16 0273566890) BUN (test code = 83 mg/dL 7-23 H 5916676195) GLUCOSE (test code = 117 mg/dL 70-110 H 6194313282) CREATININE (test code = 3.64 mg/dL 0.60-1.25 H 5414096395) CALCIUM (test code = 8.5 mg/dL 8.6-10.6 L 2429838223) eGFR (test code = mL/min/1.73m2 2751363472) RAEGAN (test code = RAEGAN) Association of Glomerular Filtration Rate (GFR) and Staging of Kidney Disease* + --+ --+ ------+| GFR (mL/min/1.73 m2) ?| With Kidney Damage ?| ?Without Kidney Damage+ --------+ --------+ +| ?>90 ?| ?Stage one ?| ? Normal ?+ ---+ ---+ -------+| ?60-89 ?| ?Stage two ?| ? Decreased GFR ? + --+ --+ ------+| ?30-59 ?| ?Stage three ?| ? Stage three ? + --+ --+ ------+| ?15-29 ?| ?Stage four ? | ? Stage four ?+ ---+ ---+ -------+| ?<15 (or dialysis) ? ?| ?Stage five ? | ? Stage five ?+ ---+ ---+ -------+ *Each stage assumes the associated GFR level has been in effect for at least three months. ?Stages 1 to 5, with or without kidney disease, indicate chronic kidney disease. Notes: Determination of stages one and two (with eGFR >59mL/min/1.73 m2) requires estimation of kidney damage for at least three months as defined by structural or functional abnormalities of the kidney, manifested by either:Pathological abnormalities or Markers of kidney damage (including abnormalities in the composition of the blood or urine or abnormalities in imaging tests). Lab Interpretation Abnormal (test code = 01808-5) [facility] GLUCOSE (AUTOMATED)2021-11-16 17:26:29 Test Item Value Reference Range Interpretation Comments POCT GLU (test code = 1940461195) 103 mg/dL 70-110 Lab Interpretation (test code = Normal 55306-9) [facility] GLUCOSE (AUTOMATED)2021-11-16 13:33:17 Test Item Value Reference Range Interpretation Comments POCT GLU (test code = 7131401879) 89 mg/dL 70-110 Lab Interpretation (test code = Normal 61158-8) [id number] 00:08:59 Test Item Value Reference Range Interpretation Comments AMMONIA (test code = 7012569331) <9 9-33 L Lab Interpretation (test code = Abnormal 18992-0) [facility] GLUCOSE (AUTOMATED)2021-11-15 22:57:10 Test Item Value Reference Range Interpretation Comments POCT GLU (test code = 3369561646) 184 mg/dL 70-110 H Lab Interpretation (test code = Abnormal 84119-3) [facility] GLUCOSE (AUTOMATED)2021-11-15 17:54:12 Test Item Value Reference Range Interpretation Comments POCT GLU (test code = 1331598822) 102 mg/dL 70-110 Lab Interpretation (test code = Normal 73503-9) [facility] GLUCOSE (AUTOMATED)2021-11-15 14:18:37 Test Item Value Reference Range Interpretation Comments POCT GLU (test code = 7258240924) 87 mg/dL 70-110 Lab Interpretation (test code = Normal 25718-5) [facility] WITH [id number] 12:25:31 Test Item Value Reference Range Interpretation Comments WBC (test code = See_Comment H [Automated 6690-2) message] The system which generated this result transmit kateryna reference range : 4.20 - 10.70 10*3/?L. The reference range was not used to interpret this result as normal/abnormal . RBC (test code = See_Comment L [Automated 789-8) message] The system which generated this result transmit kateryna reference range : 4.26 - 5.52 10*6/?L. The reference range was not used to interpret this result as normal/abnormal . HGB (test code = 10.3 g/dL 12.2-16.4 L 718-7) HCT (test code = 29.4 % 38.4-49.3 L 4544-3) MCV (test code = 79.9 fL 81.7-95.6 L 787-2) MCH (test code = 28.0 pg 26.1-32.7 785-6) MCHC (test code = 35.0 g/dL 31.2-35.0 786-4) RDW-SD (test code = 40.0 fL 38.5-51.6 79315-3) RDW-CV (test code = 13.8 % 12.1-15.4 788-0) PLT (test code = See_Comment [Automated 777-3) message] The system which generated this result transmit kateryna reference range : 150 - 328 10*3/ ?L. The reference range was not u sed to interpret th is result as normal/abnormal . MPV (test code = 10.8 fL 9.8-13.0 51203-6) NRBC/100 WBC (test See_Comment [Automat ed code = 8387941719) message] The system which generated this result transmit kateryna reference range : 0.0 - 10.0 /100 WBCs. The reference range was not used to interpret this result as normal/abnormal . NRBC x10^3 (test code See_Comment [Auto mated = 6668243786) message] The system which generated this result transmit kateryna reference range : 10*3/?L. The reference range was not used to interpret this result as normal/abnormal . GRAN MAT (NEUT) % 58.4 % (test code = 770-8) IMM GRAN % (test code 11.00 % = 0528647511) LYMPH % (test code = 19.4 % 736-9) MONO % (test code = 10.1 % 5905-5) EOS % (test code = 0.2 % 713-8) BASO % (test code = 0.9 % 706-2) GRAN MAT x10^3(ANC) 11.29 10*3/uL 1.99-6.95 H (test code = 3753570108) IMM GRAN x10^3 (test 2.13 10*3/uL 0.00-0.06 H code = 2289142810) LYMPH x10^3 (test code 3.74 10*3/uL 1.09-3.23 H = 731-0) MONO x10^3 (test code 1.95 10*3/uL 0.36-1.02 H = 742-7) EOS x10^3 (test code = 0.03 10*3/uL 0.06-0.53 L 711-2) BASO x10^3 (test code 0.18 10*3/uL 0.01-0.09 H = 704-7) Lab Interpretation Abnormal (test code = 08948-1) [facility] METABOLIC PANEL (NA, K, CL, CO2, GLUCOSE, BUN, CREATININE, CA)2021-11-15 11:15:21 Test Item Value Reference Range Interpretation Comments NA (test code = 140 mmol/L 135-145 9674851959) K (test code = 4.4 mmol/L 3.5-5.0 1257494697) CL (test code = 115 mmol/L 98-108 H 8547126887) CO2 TOTAL (test code = 21 mmol/L 23-31 L 8666604445) AGAP (test code = 2-16 6811959654) BUN (test code = 93 mg/dL 7-23 H 3676843333) GLUCOSE (test code = 102 mg/dL 70-110 2203571610) CREATININE (test code = 3.80 mg/dL 0.60-1.25 H 2301972714) CALCIUM (test code = 8.5 mg/dL 8.6-10.6 L 9533535074) eGFR (test code = mL/min/1.73m2 9488158063) RAEGAN (test code = RAEGAN) Association of Glomerular Filtration Rate (GFR) and Staging of Kidney Disease* + --+ --+ ------+| GFR (mL/min/1.73 m2) ?| With Kidney Damage ?| ?Without Kidney Damage+ --------+ --------+ +| ?>90 ?| ?Stage one ?| ? Normal ?+ ---+ ---+ -------+| ?60-89 ?| ?Stage two ?| ? Decreased GFR ? + --+ --+ ------+| ?30-59 ?| ?Stage three ?| ? Stage three ? + --+ --+ ------+| ?15-29 ?| ?Stage four ? | ? Stage four ?+ ---+ ---+ -------+| ?<15 (or dialysis) ? ?| ?Stage five ? | ? Stage five ?+ ---+ ---+ -------+ *Each stage assumes the associated GFR level has been in effect for at least three months. ?Stages 1 to 5, with or without kidney disease, indicate chronic kidney disease. Notes: Determination of stages one and two (with eGFR >59mL/min/1.73 m2) requires estimation of kidney damage for at least three months as defined by structural or functional abnormalities of the kidney, manifested by either:Pathological abnormalities or Markers of kidney damage (including abnormalities in the composition of the blood or urine or abnormalities in imaging tests). Lab Interpretation Abnormal (test code = 01484-2) [facility] GLUCOSE (AUTOMATED)2021-11-15 02:13:35 Test Item Value Reference Range Interpretation Comments POCT GLU (test code = 4736948406) 194 mg/dL 70-110 H Lab Interpretation (test code = Abnormal 31801-5) [facility] GLUCOSE (AUTOMATED)2021-11-14 22:43:01 Test Item Value Reference Range Interpretation Comments POCT GLU (test code = 9646698768) 123 mg/dL 70-110 H Lab Interpretation (test code = Abnormal 27862-6) [facility] IGG[facility]2021-11-14 18:07:42 Test Item Value Reference Range Interpretation Comments HBC (test code = 7307370775) Negative HBC Semi-Quantitative (test code = 7103995465) [facility] [place] [place] B SURFACE [id number] 18:07:42 Test Item Value Reference Range Interpretation Comments HBsAB (test code = Negative 4907303270) HBsAb mIU/mL Semi-Quantitative (test code = 0290162442) RAEGAN (test code = Interpretation: RAEGAN) ?Hepatitis B Surface Antibody ? Negative - Patient is considered to be not immune to infection with HBV. ? ? Positive - Anti-HBs detected at greater than or equal to 12 mIU/mL. ?Patient is considered to be immune to infection with HBV. ? [facility] [place] [place] B SURFACE [id number] 18:07:42 Test Item Value Reference Range Interpretation Comments HBsAg Semi-Quantitative (test code = Negative Negative 5195-3) [facility] GLUCOSE (AUTOMATED)2021-11-14 17:43:53 Test Item Value Reference Range Interpretation Comments POCT GLU (test code = 8604060959) 132 mg/dL 70-110 H Lab Interpretation (test code = Abnormal 50911-6) [facility]2021-11-14 13:42:36 Test Item Value Reference Range Interpretation Comments POCT GLU (test code = 1141282995) 89 mg/dL 70-110 Lab Interpretation (test code = Normal 36215-2) [facility] Random [id number] 12:16:16 Test Item Value Reference Range Interpretation Comments VANCO RANDOM (test code = 5.4 ug/mL 4058239585) [facility]2022-02-12 12:10:17 Test Item Value Reference Range Interpretation Comments MAGNESIUM (test code = 2396885071) 2.4 mg/dL 1.7-2.4 Lab Interpretation (test code = Normal 22324-3) [facility]. METABOLIC PANEL (52453)2021-11-14 12:09:57 Test Item Value Reference Range Interpretation Comments NA (test code = 138 mmol/L 135-145 7599093123) K (test code = 4.4 mmol/L 3.5-5.0 5977380856) CL (test code = 112 mmol/L 98-108 H 0779616898) CO2 TOTAL (test code = 18 mmol/L 23-31 L 7711179077) AGAP (test code = 2-16 7440882312) BUN (test code = 98 mg/dL 7-23 H 3531593653) GLUCOSE (test code = 95 mg/dL 70-110 3709966125) CREATININE (test code = 3.91 mg/dL 0.60-1.25 H 2481339898) TOTAL BILI (test code = 0.4 mg/dL 0.1-1.9 0382702520) CALCIUM (test code = 8.1 mg/dL 8.6-10.6 L 9351780731) T PROTEIN (test code = 6.0 g/dL 6.3-8.2 L 5521481525) ALBUMIN (test code = 3.0 g/dL 3.5-5.0 L 2056655358) ALK PHOS (test code = 59 U/L 34-122 8376303117) ALTv (test code = 107 U/L 5-50 H 1742-6) AST(SGOT) (test code = 99 U/L 13-40 H 7894835466) eGFR (test code = mL/min/1.73m2 5353600546) RAEGAN (test code = RAEGAN) Association of Glomerular Filtration Rate (GFR) and Staging of Kidney Disease* + --+ --+ ------+| GFR (mL/min/1.73 m2) ?| With Kidney Damage ?| ?Without Kidney Damage+ --------+ --------+ +| ?>90 ?| ?Stage one ?| ? Normal ?+ ---+ ---+ -------+| ?60-89 ?| ?Stage two ?| ? Decreased GFR ? + --+ --+ ------+| ?30-59 ?| ?Stage three ?| ? Stage three ? + --+ --+ ------+| ?15-29 ?| ?Stage four ? | ? Stage four ?+ ---+ ---+ -------+| ?<15 (or dialysis) ? ?| ?Stage five ? | ? Stage five ?+ ---+ ---+ -------+ *Each stage assumes the associated GFR level has been in effect for at least three months. ?Stages 1 to 5, with or without kidney disease, indicate chronic kidney disease. Notes: Determination of stages one and two (with eGFR >59mL/min/1.73 m2) requires estimation of kidney damage for at least three months as defined by structural or functional abnormalities of the kidney, manifested by either:Pathological abnormalities or Markers of kidney damage (including abnormalities in the composition of the blood or urine or abnormalities in imaging tests). Lab Interpretation Abnormal (test code = 61909-5) [facility]2022-02-12 12:09:57 Test Item Value Reference Range Interpretation Comments PHOSPHORUS (test code = 9900290738) 3.8 mg/dL 2.5-5.0 Lab Interpretation (test code = Normal 70949-8) [facility]aleURIC [id number] 12:09:37 Test Item Value Reference Range Interpretation Comments URIC ACID (test code = 4770086337) 12.3 mg/dL 3.6-8.0 H Lab Interpretation (test code = Abnormal 07303-5) [facility] WITH [id number] 12:00:07 Test Item Value Reference Range Interpretation Comments WBC (test code = See_Comment H [Automated 6690-2) message] The sy stem which generated this result transmitted reference range : 4.20 - 10.70 10*3/?L. The reference range was not used to interpret this result as normal/abnormal . RBC (test code = See_Comment [Automated 789-8) message] The sy stem which generated this result transmitted reference range : 4.26 - 5.52 10*6/?L. The reference range was not used to interpret this result as normal/abnormal . HGB (test code = 12.4 g/dL 12.2-16.4 718-7) HCT (test code = 35.9 % 38.4-49.3 L 4544-3) MCV (test code = 80.9 fL 81.7-95.6 L 787-2) MCH (test code = 27.9 pg 26.1-32.7 785-6) MCHC (test code = 34.5 g/dL 31.2-35.0 786-4) RDW-SD (test code = 40.6 fL 38.5-51.6 02017-5) RDW-CV (test code = 13.9 % 12.1-15.4 788-0) PLT (test code = See_Comment [Automated 777-3) message] The sy stem which generated this result transmitted reference range : 150 - 328 10*3/ ?L. The reference r sirena was not used to interpret this result as normal/abnormal . MPV (test code = 11.3 fL 9.8-13.0 95022-9) NRBC/100 WBC (test See_Comment [Automat ed code = 7474857769) message] The system which generated this result transmitted reference range : 0.0 - 10.0 /100 WBCs. The refer ence range was not u sed to interpret th is result as normal/abnormal . NRBC x10^3 (test code See_Comment [Auto mated = 7450285347) message] The s ystem which generated this result transmitted reference range : 10*3/?L. The reference range was not used to interpret this result as normal/abnormal . GRAN MAT (NEUT) % 70.3 % (test code = 770-8) IMM GRAN % (test code 4.40 % = 8075104342) LYMPH % (test code = 14.2 % 736-9) MONO % (test code = 10.9 % 5905-5) EOS % (test code = 0.0 % 713-8) BASO % (test code = 0.2 % 706-2) GRAN MAT x10^3(ANC) 9.02 10*3/uL 1.99-6.95 H (test code = 1647017282) IMM GRAN x10^3 (test 0.57 10*3/uL 0.00-0.06 H code = 0386565241) LYMPH x10^3 (test code 1.82 10*3/uL 1.09-3.23 = 731-0) MONO x10^3 (test code 1.40 10*3/uL 0.36-1.02 H = 742-7) EOS x10^3 (test code = <0.03 0.06-0.53 L 711-2) BASO x10^3 (test code 0.03 10*3/uL 0.01-0.09 = 704-7) Lab Interpretation Abnormal (test code = 61354-5) [facility] GLUCOSE (AUTOMATED)2021-11-14 01:26:08 Test Item Value Reference Range Interpretation Comments POCT GLU (test code = 1267871144) 170 mg/dL 70-110 H Lab Interpretation (test code = Abnormal 36216-5) [facility] GLUCOSE (AUTOMATED)2021-11-14 01:26:03 Test Item Value Reference Range Interpretation Comments POCT GLU (test code = 8939459842) 150 mg/dL 70-110 H Lab Interpretation (test code = Abnormal 86501-1) [facility] CON[facility]ULT [id number] 00:04:50 LEUKOCYTOSIS WITH ABSOLUTE NEUTROPHILIA WITH INCREASED IMMATURE GRANULOCYTES/LEFT SHIFT AND ABSOLUTEMONOCYTOSIS. NORMOCYTIC, NORMOCHROMIC ANEMIA. PLATELETS ARE UNREMARKABLE.[facility] GLUCOSE (AUTOMATED)2021-11-13 17:47:11 Test Item Value Reference Range Interpretation Comments POCT GLU (test code = 0133052553) 115 mg/dL 70-110 H Lab Interpretation (test code = Abnormal 35404-3) [facility] (AUTOMATED)2021-11-13 16:17:56 Test Item Value Reference Range Interpretation Comments POCT GLU (test code = 2767383310) 114 mg/dL 70-110 H Lab Interpretation (test code = Abnormal 00745-8) [facility] WITH [id number] 12:47:07 Test Item Value Reference Range Interpretation Comments WBC (test code = See_Comment H [Automated 6690-2) message] The system which generated this result transmit kateryna reference range : 4.20 - 10.70 10*3/?L. The reference range was not used to interpret this result as normal/abnormal . RBC (test code = See_Comment L [Automated 789-8) message] The system which generated this result transmit kateryna reference range : 4.26 - 5.52 10*6/?L. The reference range was not used to interpret this result as normal/abnormal . HGB (test code = 9.2 g/dL 12.2-16.4 L 718-7) HCT (test code = 27.1 % 38.4-49.3 L 4544-3) MCV (test code = 81.9 fL 81.7-95.6 787-2) MCH (test code = 27.8 pg 26.1-32.7 785-6) MCHC (test code = 33.9 g/dL 31.2-35.0 786-4) RDW-SD (test code = 42.2 fL 38.5-51.6 64917-6) RDW-CV (test code = 14.1 % 12.1-15.4 788-0) PLT (test code = See_Comment [Automated 777-3) message] The system which generated this result transmit kateryna reference range : 150 - 328 10*3/ ?L. The reference range was not u sed to interpret th is result as normal/abnormal . MPV (test code = 11.6 fL 9.8-13.0 72335-3) NRBC/100 WBC (test See_Comment [Automat ed code = 7162118011) message] The system which generated this result transmit kateryna reference range : 0.0 - 10.0 /100 WBCs. The reference range was not used to interpret this result as normal/abnormal . NRBC x10^3 (test code <0.01 See_Comment [Auto mated = 1562223886) message] The system which generated this result transmit kateryna reference range : 10*3/?L. The reference range was not used to interpret this result as normal/abnormal . GRAN MAT (NEUT) % 81.9 % (test code = 770-8) IMM GRAN % (test code 1.80 % = 1551592780) LYMPH % (test code = 6.8 % 736-9) MONO % (test code = 9.4 % 5905-5) EOS % (test code = 0.0 % 713-8) BASO % (test code = 0.1 % 706-2) GRAN MAT x10^3(ANC) 15.61 10*3/uL 1.99-6.95 H (test code = 7254324102) IMM GRAN x10^3 (test 0.34 10*3/uL 0.00-0.06 H code = 4101399503) LYMPH x10^3 (test code 1.30 10*3/uL 1.09-3.23 = 731-0) MONO x10^3 (test code 1.79 10*3/uL 0.36-1.02 H = 742-7) EOS x10^3 (test code = <0.03 0.06-0.53 L 711-2) BASO x10^3 (test code <0.03 0.01-0.09 = 704-7) Lab Interpretation Abnormal (test code = 28642-3) [facility]aleN-TERMINAL [id number] 12:10:05 Test Item Value Reference Range Interpretation Comments NT-proBNP (test code 1090 pg/mL See_Comment H [Autom ated = 0652825042) message] The system which generated this result transmitted reference range : <=125. The reference range was not used to interpret this result as normal/abnormal . RAEGAN (test code = RAEGAN) Biotin has been reported to cause a negative bias, interpret results relative to patient's use of biotin. Lab Interpretation Abnormal (test code = 26659-8) [facility] METABOLIC PANEL (NA, K, CL, CO2, GLUCOSE, BUN, CREATININE, CA)2021-11-13 12:01:20 Test Item Value Reference Range Interpretation Comments NA (test code = 139 mmol/L 135-145 8365315233) K (test code = 4.6 mmol/L 3.5-5.0 6875479863) CL (test code = 108 mmol/L 98-108 4798502952) CO2 TOTAL (test code = 21 mmol/L 23-31 L 2527945716) AGAP (test code = 2-16 9161404188) BUN (test code = 90 mg/dL 7-23 H 8026692200) GLUCOSE (test code = 126 mg/dL 70-110 H 0713193622) CREATININE (test code = 4.61 mg/dL 0.60-1.25 H 0378736261) CALCIUM (test code = 8.6 mg/dL 8.6-10.6 5444905322) eGFR (test code = mL/min/1.73m2 8693757397) RAEGAN (test code = RAEGAN) Association of Glomerular Filtration Rate (GFR) and Staging of Kidney Disease* + --+ --+ ------+| GFR (mL/min/1.73 m2) ?| With Kidney Damage ?| ?Without Kidney Damage+ --------+ --------+ +| ?>90 ?| ?Stage one ?| ? Normal ?+ ---+ ---+ -------+| ?60-89 ?| ?Stage two ?| ? Decreased GFR ? + --+ --+ ------+| ?30-59 ?| ?Stage three ?| ? Stage three ? + --+ --+ ------+| ?15-29 ?| ?Stage four ? | ? Stage four ?+ ---+ ---+ -------+| ?<15 (or dialysis) ? ?| ?Stage five ? | ? Stage five ?+ ---+ ---+ -------+ *Each stage assumes the associated GFR level has been in effect for at least three months. ?Stages 1 to 5, with or without kidney disease, indicate chronic kidney disease. Notes: Determination of stages one and two (with eGFR >59mL/min/1.73 m2) requires estimation of kidney damage for at least three months as defined by structural or functional abnormalities of the kidney, manifested by either:Pathological abnormalities or Markers of kidney damage (including abnormalities in the composition of the blood or urine or abnormalities in imaging tests). Lab Interpretation Abnormal (test code = 72846-6) [facility] [id number] 06:21:42 Test Item Value Reference Interpretation Comments Range TROPONIN I (test 0.014 ng/mL See_Comment [Automated code = 7820560247) message] The system which generated this result transmitted reference range : <=0.034. The reference range was not used to interpret this result as normal/abnormal . RAEGAN (test code = Reference (Normal) RAEGAN) Range (defined by the 99th percentile reference limit): <= 0.034 ng/mL Note: Cardiac troponin begins to rise 3-4 hours after the onset of ischemia. Repeat in 4-6 hours if the sample was drawn within 3-4 hours of the onset of the symptom and found normal. Diagnosis of myocardial injury is made with acute changes in cTn concentrations with at least one serial sample above the 99th percentile upper reference limit (URL), taken together with the patient's clinical presentation. Biotin has been reported to cause a negative bias, interpret results relative to patient's use of biotin. Lab Interpretation Normal (test code = 28464-5) [facility] [id number] 00:34:22 Test Item Value Reference Interpretation Comments Range TROPONIN I (test 0.018 ng/mL See_Comment [Automated code = 6956255562) message] The system which generated this result transmitted reference range : <=0.034. The reference range was not used to interpret this result as normal/abnormal . RAEGAN (test code = Reference (Normal) RAEGAN) Range (defined by the 99th percentile reference limit): <= 0.034 ng/mL Note: Cardiac troponin begins to rise 3-4 hours after the onset of ischemia. Repeat in 4-6 hours if the sample was drawn within 3-4 hours of the onset of the symptom and found normal. Diagnosis of myocardial injury is made with acute changes in cTn concentrations with at least one serial sample above the 99th percentile upper reference limit (URL), taken together with the patient's clinical presentation. Biotin has been reported to cause a negative bias, interpret results relative to patient's use of biotin. Lab Interpretation Normal (test code = 40926-1) [facility] (NA, K, CL, CO2, GLUCOSE, BUN, CREATININE, CA)2021-11-13 00:22:54 Test Item Value Reference Range Interpretation Comments NA (test code = 138 mmol/L 135-145 8166573630) K (test code = 4.4 mmol/L 3.5-5.0 8572248188) CL (test code = 107 mmol/L 98-108 6010157328) CO2 TOTAL (test code = 21 mmol/L 23-31 L 7798823424) AGAP (test code = 2-16 2130406718) BUN (test code = 82 mg/dL 7-23 H 4568023534) GLUCOSE (test code = 145 mg/dL 70-110 H 2855456829) CREATININE (test code = 4.35 mg/dL 0.60-1.25 H 1059154940) CALCIUM (test code = 8.5 mg/dL 8.6-10.6 L 2872088688) eGFR (test code = mL/min/1.73m2 0479222809) RAEGAN (test code = RAEGAN) Association of Glomerular Filtration Rate (GFR) and Staging of Kidney Disease* + --+ --+ ------+| GFR (mL/min/1.73 m2) ?| With Kidney Damage ?| ?Without Kidney Damage+ --------+ --------+ +| ?>90 ?| ?Stage one ?| ? Normal ?+ ---+ ---+ -------+| ?60-89 ?| ?Stage two ?| ? Decreased GFR ? + --+ --+ ------+| ?30-59 ?| ?Stage three ?| ? Stage three ? + --+ --+ ------+| ?15-29 ?| ?Stage four ? | ? Stage four ?+ ---+ ---+ -------+| ?<15 (or dialysis) ? ?| ?Stage five ? | ? Stage five ?+ ---+ ---+ -------+ *Each stage assumes the associated GFR level has been in effect for at least three months. ?Stages 1 to 5, with or without kidney disease, indicate chronic kidney disease. Notes: Determination of stages one and two (with eGFR >59mL/min/1.73 m2) requires estimation of kidney damage for at least three months as defined by structural or functional abnormalities of the kidney, manifested by either:Pathological abnormalities or Markers of kidney damage (including abnormalities in the composition of the blood or urine or abnormalities in imaging tests). Lab Interpretation Abnormal (test code = 84814-9) [facility]2021-11-12 22:48:52 Test Item Value Reference Range Interpretation Comments POCT GLU (test code = 7822946817) 137 mg/dL 70-110 H Lab Interpretation (test code = Abnormal 40748-2) [facility]ALCITONIN2022-02-10 19:24:20 Test Item Value Reference Range Interpretation Comments Procalcitonin (test 4.03 ng/mL <0.07 H code = 5266450566) RAEGAN (test code = RAEGAN) INTERPRETATION OF PROCALCITONIN RESULTS IN ADULTS >= 18 YEARS OF AGE Initiation and discontinuation of antibiotics on patients with suspected or confirmed Lower Respiratory Tract Infection in Adults >= 18 years of age. + +-------- --------+ + -----+|Procalcitonin |Interpretation ?|Antibiotic ? ? |Considerations ? |ng/mL ? | ?|recommendation | ? + +-------- --------+ + -----+| <0.1 ? | Bacterial ? ? ?| Strongly ? ? ?| ? | ?| infection very | discouraged ? | Overruling: ? | ?| unlikely ? ? ? | ? | ? Clinically unstable ? ? ? + +-------- --------+ + ? High risk for adverse ? ? | <0.25 ?| Bacterial ? ? ?| Discouraged ? | ? outcome ? | ?| infection ? ? ?| ? | ? SEE IMPORTANT NOTE ?| ?| unlikely ? ? ? | ? | ? + +-------- --------+ + -----+| >=0.25 ? ? ? | Bacterial ? ? ?| Encouraged ? ?| ? | ?| infection ? ? ?| ? | ? | ?| likely ? | ? | Consider treatment failure ?+ +------- ---------+ -+ if levels does not decrease | >0.5 ? | Bacterial ? ? ?| Strongly ? ? ?| appropriately ? | ?| infection very | encouraged ? ?| ? | ?| likely ? | ? | ? + +-------- --------+ + -----+ Discontinuation of antibiotics in high-acuity patients with suspected or confirmed sepsis in Adults >= 18 years of age. + +-------- --------+ + -----+|Procalcitonin |Interpretation ?|Antibiotic ? ? |Considerations ? |ng/mL ? | ?|recommendation | ? + +-------- --------+ + -----+| <0.25 ?| Bacterial ? ? ?| Strongly ? ? ?| ? | ?| infection very | discouraged ? | Overruling: ? | ?| unlikely ? ? ? | ? | ? Clinically unstable ? ? ? + +-------- --------+ + ? High risk for adverse ? ? | <0.5 or drop | Bacterial ? ? ?| Discouraged ? | ? outcome ? | >80% from ? ?| infection ? ? ?| ? | ? SEE IMPORTANT NOTE ?| highest PCT ?| unlikely ? ? ? | ? | ? | level ?| ?| ? | ? + +-------- --------+ + -----+| >=0.5 ?| Bacterial ? ? ?| Encouraged ? ?| ? | ?| infection ? ? ?| ? | ? | ?| likely ? | ? | Consider treatment failure ?+ +------- ---------+ -+ if levels does not decrease | >1.0 ? | Bacterial ? ? ?| Strongly ? ? ?| appropriately ? | ?| infection very | encouraged ? ?| ? | ?| likely ? | ? | ? + +-------- --------+ + -----+ Percentage of drop of Procalcitonin calculation for Discontinuation of antibiotics in high-acuity patients with suspected or confirmed sepsis in Adults >= 18 years of age. ? Procalcitonin highest{}-Procalcitonin current{}Delta Procalcitonin = x100% ? Procalcitonin current {} IMPORTANT NOTE: Procalcitonin may be elevated without bacterial infection by physiologic stress related to trauma, walker, chronic dialysis, metastatic cancer, surgery in the past seven days, malaria, some fungal infections, and some forms of vasculitis. The interpretation algorithm may not apply to patients with immunosuppression (equivalent of >10 mg of prednisone daily), HIV with CD4 cell count < 350 cells/mm3, active malignancy on systemic chemotherapy, solid organ transplant or hematopoietic stem cell transplantation, or hospital acquired pneumonia. Additionally, some clinical trials of procalcitonin have excluded patients with shock requiring vasopressor use, acute respiratory failure requiring mechanical ventilation, or those with known lung abscess/empyema. For further information please refer to:[email or web address] Lab Interpretation Abnormal (test code = 54904-1) [facility]aleLIPID PANEL (24766)(TOTAL CHOLESTEROL, TRIGLYCERIDES, HDL)2021-11-12 19:12:51 Test Item Value Reference Range Interpretation Comments CHOL (test code = 81 mg/dL 120-200 L 4647789069) HDL (test code = 21 mg/dL >40 L 3805868939) HDLC RATIO (test code = See_Comment [Au tomated message] 1848707018) The system [employer] generated this result transmitted ref erence range: <=5.0. T he reference range was not used to int erpret this result as normal/abnormal . TRIG (test code = 70 mg/dL 30-170 1754924001) LDL CHOL (test code = 46 mg/dL See_Comment [Auto mated message] 39091-1) The system [employer] generated this result transmitted ref erence range: <=160. T he reference range was not used to int erpret this result as normal/abnormal . VLDL (test code = 14 mg/dL 5-60 0846799739) Lab Interpretation (test Abnormal code = 61075-2) [facility]2022-[facility]-10 19:12:51 Test Item Value Reference Range Interpretation Comments MAGNESIUM (test code = 5756295177) 2.0 mg/dL 1.7-2.4 Lab Interpretation (test code = Normal 30048-8) [facility]2022-02-10 19:12:51 Test Item Value Reference Range Interpretation Comments PHOSPHORUS (test code = 5898442702) 4.0 mg/dL 2.5-5.0 Lab Interpretation (test code = Normal 37467-1) [facility]2022-02-10 18:59:53 Test Item Value Reference Range Interpretation Comments FOLATE SER (test code = 2983082749) >20.0 3.0-20.0 H Lab Interpretation (test code = Abnormal 88462-7) [facility]aleVITAMIN B12, [id number] 18:34:47 Test Item Value Reference Range Interpretation Comments VIT B12 (test code = 228 pg/mL 240-930 L 9403172724) RAEGAN (test code = RAEGAN) Biotin has been reported to cause a positive bias, interpret results relative to patient's use of biotin. Lab Interpretation (test Abnormal code = 18469-5) [facility]IT[facility] D, [id number] 18:17:02 Test Item Value Reference Range Interpretation Comments VIT D 25OH (test code = 18 ng/mL 25-80 L 43886-5) RAEGAN (test code = RAEGAN) Deficiency: <20 ng/mLInsufficiency: 20-24 ng/mLOptimal: 25-80 ng/mL Lab Interpretation (test Abnormal code = 36622-4) [facility] GL[facility] (AUTOMATED)2021-11-12 17:47:24 Test Item Value Reference Range Interpretation Comments POCT GLU (test code = 1112429216) 134 mg/dL 70-110 H Lab Interpretation (test code = Abnormal 12804-4) [facility] GLUCOSE (AUTOMATED)2021-11-12 15:39:14 Test Item Value Reference Range Interpretation Comments POCT GLU (test code = 6670095610) 156 mg/dL 70-110 H Lab Interpretation (test code = Abnormal 18406-6) [facility] with Lzmlygsmdgqn0051-11-66 13:58:05 Test Item Value Reference Range Interpretation Comments WBC (test code = See_Comment H [Automated 6690-2) message] The system which generated this result transmit kateryna reference range : 4.20 - 10.70 10*3/?L. The reference range was not used to interpret this result as normal/abnormal . RBC (test code = See_Comment L [Automated 789-8) message] The system which generated this result transmit kateryna reference range : 4.26 - 5.52 10*6/?L. The reference range was not used to interpret this result as normal/abnormal . HGB (test code = 9.4 g/dL 12.2-16.4 L 718-7) HCT (test code = 27.6 % 38.4-49.3 L 4544-3) MCV (test code = 83.1 fL 81.7-95.6 787-2) MCH (test code = 28.3 pg 26.1-32.7 785-6) MCHC (test code = 34.1 g/dL 31.2-35.0 786-4) RDW-SD (test code = 43.1 fL 38.5-51.6 77626-0) RDW-CV (test code = 14.1 % 12.1-15.4 788-0) PLT (test code = See_Comment [Automated 777-3) message] The system which generated this result transmit kateryna reference range : 150 - 328 10*3/ ?L. The reference range was not u sed to interpret th is result as normal/abnormal . MPV (test code = 11.9 fL 9.8-13.0 98293-1) NRBC/100 WBC (test See_Comment [Automat ed code = 7770434119) message] The system which generated this result transmit kateryna reference range : 0.0 - 10.0 /100 WBCs. The reference range was not used to interpret this result as normal/abnormal . NRBC x10^3 (test code <0.01 See_Comment [Auto mated = 7954551657) message] The system which generated this result transmit kateryna reference range : 10*3/?L. The reference range was not used to interpret this result as normal/abnormal . GRAN MAT (NEUT) % 78.4 % (test code = 770-8) IMM GRAN % (test code 1.50 % = 2885247642) LYMPH % (test code = 8.0 % 736-9) MONO % (test code = 11.9 % 5905-5) EOS % (test code = 0.0 % 713-8) BASO % (test code = 0.2 % 706-2) GRAN MAT x10^3(ANC) 16.67 10*3/uL 1.99-6.95 H (test code = 9103437008) IMM GRAN x10^3 (test 0.31 10*3/uL 0.00-0.06 H code = 9157582131) LYMPH x10^3 (test code 1.71 10*3/uL 1.09-3.23 = 731-0) MONO x10^3 (test code 2.53 10*3/uL 0.36-1.02 H = 742-7) EOS x10^3 (test code = <0.03 0.06-0.53 L 711-2) BASO x10^3 (test code 0.04 10*3/uL 0.01-0.09 = 704-7) Lab Interpretation Abnormal (test code = 87973-1) [facility]aleJOHANNQUYEN [id number] 13:06:21 Test Item Value Reference Interpretation Comments Range TROPONIN I (test 0.040 ng/mL See_Comment H [Automated code = 9709463091) message] The system which generated this result transmitted reference range : <=0.034. The reference range was not used to interpret this result as normal/abnormal . RAEGAN (test code = Reference (Normal) RAEGAN) Range (defined by the 99th percentile reference limit): <= 0.034 ng/mL Note: Cardiac troponin begins to rise 3-4 hours after the onset of ischemia. Repeat in 4-6 hours if the sample was drawn within 3-4 hours of the onset of the symptom and found normal. Diagnosis of myocardial injury is made with acute changes in cTn concentrations with at least one serial sample above the 99th percentile upper reference limit (URL), taken together with the patient's clinical presentation. Biotin has been reported to cause a negative bias, interpret results relative to patient's use of biotin. Lab Interpretation Abnormal (test code = 16201-2) [facility] Metabolic Panel (NA, K, CL, CO2, GLUCOSE, BUN, CREATININE, CA)2021-11-12 13:00:45 Test Item Value Reference Range Interpretation Comments NA (test code = 137 mmol/L 135-145 0717057217) K (test code = 4.4 mmol/L 3.5-5.0 2915908784) CL (test code = 105 mmol/L 98-108 1656361804) CO2 TOTAL (test code = 22 mmol/L 23-31 L 1866639809) AGAP (test code = 2-16 0327987426) BUN (test code = 77 mg/dL 7-23 H 0582612989) GLUCOSE (test code = 121 mg/dL 70-110 H 1755625672) CREATININE (test code = 4.30 mg/dL 0.60-1.25 H 6345685555) CALCIUM (test code = 8.0 mg/dL 8.6-10.6 L 5576856847) eGFR (test code = mL/min/1.73m2 1486885806) RAEGAN (test code = RAEGAN) Association of Glomerular Filtration Rate (GFR) and Staging of Kidney Disease* + --+ --+ ------+| GFR (mL/min/1.73 m2) ?| With Kidney Damage ?| ?Without Kidney Damage+ --------+ --------+ +| ?>90 ?| ?Stage one ?| ? Normal ?+ ---+ ---+ -------+| ?60-89 ?| ?Stage two ?| ? Decreased GFR ? + --+ --+ ------+| ?30-59 ?| ?Stage three ?| ? Stage three ? + --+ --+ ------+| ?15-29 ?| ?Stage four ? | ? Stage four ?+ ---+ ---+ -------+| ?<15 (or dialysis) ? ?| ?Stage five ? | ? Stage five ?+ ---+ ---+ -------+ *Each stage assumes the associated GFR level has been in effect for at least three months. ?Stages 1 to 5, with or without kidney disease, indicate chronic kidney disease. Notes: Determination of stages one and two (with eGFR >59mL/min/1.73 m2) requires estimation of kidney damage for at least three months as defined by structural or functional abnormalities of the kidney, manifested by either:Pathological abnormalities or Markers of kidney damage (including abnormalities in the composition of the blood or urine or abnormalities in imaging tests). Lab Interpretation Abnormal (test code = 44105-3) [facility]aleMagnesium [id number] 13:00:45 Test Item Value Reference Range Interpretation Comments MAGNESIUM (test code = 0568774644) 2.0 mg/dL 1.7-2.4 Lab Interpretation (test code = Normal 14004-9) [facility]aleIRON [id number] 10:51:03 Test Item Value Reference Range Interpretation Comments IRON (test code = 3417259353) 14 ug/dL 50-160 L TIBC (test code = 8019001764) 172 ug/dL 250-410 L % FE SAT (test code = 3712204336) 8 % 20-50 L Lab Interpretation (test code = Abnormal 78608-5) [facility]aleLipid Panel (Total Cholesterol, Triglycerides, HDL) - [id number] 10:41:44 Test Item Value Reference Range Interpretation Comments CHOL (test code = 78 mg/dL 120-200 L 1575557367) HDL (test code = 25 mg/dL >40 L 3359737240) HDLC RATIO (test code = See_Comment [Au tomated message] 6552628095) The system [employer] generated this result transmitted ref erence range: <=5.0. T he reference range was not used to int erpret this result as normal/abnormal . TRIG (test code = 69 mg/dL 30-170 8854967671) LDL CHOL (test code = 39 mg/dL See_Comment [Auto mated message] 58742-4) The system [employer] generated this result transmitted ref erence range: <=160. T he reference range was not used to int erpret this result as normal/abnormal . VLDL (test code = 14 mg/dL 5-60 3539075572) Lab Interpretation (test Abnormal code = 09638-9) [facility]aleCREATINE [id number] 10:41:03 Test Item Value Reference Range Interpretation Comments CK (test code = 4474306202) 266 U/L 33-194 H Lab Interpretation (test code = Abnormal 96689-0) [facility]aleTROPONIN [id number] 10:06:38 Test Item Value Reference Interpretation Comments Range TROPONIN I (test 0.027 ng/mL See_Comment [Automated code = 2202056819) message] The system which generated this result transmitted reference range : <=0.034. The reference range was not used to interpret this result as normal/abnormal . RAEGAN (test code = Reference (Normal) RAEGAN) Range (defined by the 99th percentile reference limit): <= 0.034 ng/mL Note: Cardiac troponin begins to rise 3-4 hours after the onset of ischemia. Repeat in 4-6 hours if the sample was drawn within 3-4 hours of the onset of the symptom and found normal. Diagnosis of myocardial injury is made with acute changes in cTn concentrations with at least one serial sample above the 99th percentile upper reference limit (URL), taken together with the patient's clinical presentation. Biotin has been reported to cause a negative bias, interpret results relative to patient's use of biotin. Lab Interpretation Normal (test code = 33605-0) [facility]valeSEDIMENTATION [id number] 07:33:14 Test Item Value Reference Range Interpretation Comments ESR (test code = See_Comment H [Automated message] 2991691217) The system ic h generated this result transmitted ref erence range: 0 - 10 m m/HR. The reference r sirena was not used to interpret this result as normal/abnor mal. Lab Interpretation (test Abnormal code = 38396-4) [facility] SunnyvalePROTHROMBIN TIME / [id number] 07:01:10 Test Item Value Reference Range Interpretation Comments PROTIME PATIENT (test See_Comment H [Auto mated message] code = 5964-2) The system ich generated this result transmitted ref erence range: 12.0 - 1 4.7 Seconds. The reference range was not used to int erpret this result as normal/abnormal . INR (test code = 6301-6) Nor mal INR <1.1; Warfarin Therap eutic range 2.0 to 3. 0 or 2.5 to 3.5, dep ending upon the indica tions. Lab Interpretation (test Abnormal code = 00500-3) [facility]aleGlycosylated Hemoglobin (A1C)2021-11-12 00:30:39 Test Item Value Reference Range Interpretation Comments HGB A1C (test code = 5.7 % 4.0-5.7 4548-4) RAEGAN (test code = RAEGAN) Reference RangesNormal: <5.7%Prediabetes: 5.7 - 6.4%Diabetes: > 6.5% Lab Interpretation (test Normal code = 78393-0) [facility]aleCBC WITH [id number] 15:09:50 Test Item Value Reference Range Interpretation Comments WBC (test code = See_Comment H [Automated 0790-2) message] The system which generated this result transmit kateryna reference range : 4.20 - 10.70 10*3/?L. The reference range was not used to interpret this result as normal/abnormal . RBC (test code = See_Comment L [Automated 999-8) message] The system which generated this result transmit kateryna reference range : 4.26 - 5.52 10*6/?L. The reference range was not used to interpret this result as normal/abnormal . HGB (test code = 10.6 g/dL 12.2-16.4 L 718-7) HCT (test code = 30.9 % 38.4-49.3 L 4544-3) MCV (test code = 82.0 fL 81.7-95.6 787-2) MCH (test code = 28.1 pg 26.1-32.7 785-6) MCHC (test code = 34.3 g/dL 31.2-35.0 786-4) RDW-SD (test code = 41.9 fL 38.5-51.6 82908-1) RDW-CV (test code = 14.1 % 12.1-15.4 788-0) PLT (test code = See_Comment [Automated 777-3) message] The system which generated this result transmit kateryna reference range : 150 - 328 10*3/ ?L. The reference range was not u sed to interpret th is result as normal/abnormal . MPV (test code = 11.6 fL 9.8-13.0 04129-2) NRBC/100 WBC (test See_Comment [Automat ed code = 8562645508) message] The system which generated this result transmit kateryna reference range : 0.0 - 10.0 /100 WBCs. The reference range was not used to interpret this result as normal/abnormal . NRBC x10^3 (test code <0.01 See_Comment [Auto mated = 0691184181) message] The system which generated this result transmit kateryna reference range : 10*3/?L. The reference range was not used to interpret this result as normal/abnormal . GRAN MAT (NEUT) % 81.6 % (test code = 770-8) IMM GRAN % (test code 1.10 % = 6928786577) LYMPH % (test code = 6.7 % 736-9) MONO % (test code = 10.4 % 5905-5) EOS % (test code = 0.0 % 713-8) BASO % (test code = 0.2 % 706-2) GRAN MAT x10^3(ANC) 20.26 10*3/uL 1.99-6.95 H (test code = 4609186994) IMM GRAN x10^3 (test 0.27 10*3/uL 0.00-0.06 H code = 6674395319) LYMPH x10^3 (test code 1.67 10*3/uL 1.09-3.23 = 731-0) MONO x10^3 (test code 2.57 10*3/uL 0.36-1.02 H = 742-7) EOS x10^3 (test code = <0.03 0.06-0.53 L 711-2) BASO x10^3 (test code 0.05 10*3/uL 0.01-0.09 = 704-7) BRENDEN CELLS (test code 2+ See_Comment A [Auto mated = 7790-9) message] The system which generated this result transmit kateryna reference range : (none). The reference range was not used to interpret this result as normal/abnormal . ELLIPTO/OVAL (test 2+ See_Comment A [Automat ed code = 90733-4) message] The system which generated this result transmit kateryna reference range : (none). The reference range was not used to interpret this result as normal/abnormal . TARGET CELLS (test 2+ See_Comment A [Automat ed code = 95458-3) message] The system which generated this result transmit kateryna reference range : (none). The reference range was not used to interpret this result as normal/abnormal . Lab Interpretation Abnormal (test code = 86221-8) [facility]aleTROPONIN [id number] 14:58:50 Test Item Value Reference Interpretation Comments Range TROPONIN I (test 0.030 ng/mL See_Comment [Automated code = 2263381003) message] The system which generated this result transmitted reference range : <=0.034. The reference range was not used to interpret this result as normal/abnormal . RAEGAN (test code = Reference (Normal) RAEAGN) Range (defined by the 99th percentile reference limit): <= 0.034 ng/mL Note: Cardiac troponin begins to rise 3-4 hours after the onset of ischemia. Repeat in 4-6 hours if the sample was drawn within 3-4 hours of the onset of the symptom and found normal. Diagnosis of myocardial injury is made with acute changes in cTn concentrations with at least one serial sample above the 99th percentile upper reference limit (URL), taken together with the patient's clinical presentation. Biotin has been reported to cause a negative bias, interpret results relative to patient's use of biotin. Lab Interpretation Normal (test code = 76888-3) [facility] SunnyvaleN-TERMINAL [id number] 14:55:49 Test Item Value Reference Range Interpretation Comments NT-proBNP (test code 1750 pg/mL See_Comment H [Autom ated = 9889993164) message] The system which generated this result transmitted reference range : <=125. The reference range was not used to interpret this result as normal/abnormal . RAEGAN (test code = RAEGAN) Biotin has been reported to cause a negative bias, interpret results relative to patient's use of biotin. Lab Interpretation Abnormal (test code = 44726-6) [facility] SunnyvaleCOMP. METABOLIC PANEL (42581)2021-11-11 14:47:10 Test Item Value Reference Range Interpretation Comments NA (test code = 138 mmol/L 135-145 0263420079) K (test code = 4.9 mmol/L 3.5-5.0 7932610341) CL (test code = 107 mmol/L 98-108 7545022319) CO2 TOTAL (test code = 19 mmol/L 23-31 L 2022339775) AGAP (test code = 2-16 8486094570) BUN (test code = 70 mg/dL 7-23 H 7128756158) GLUCOSE (test code = 139 mg/dL 70-110 H 3388923801) CREATININE (test code = 3.98 mg/dL 0.60-1.25 H 3736100732) TOTAL BILI (test code = 1.1 mg/dL 0.1-1.4 3936356549) CALCIUM (test code = 8.5 mg/dL 8.6-10.6 L 4645155704) T PROTEIN (test code = 7.4 g/dL 6.3-8.2 6906148642) ALBUMIN (test code = 4.0 g/dL 3.5-5.0 3744743532) ALK PHOS (test code = 44 U/L 34-122 8743913902) ALTv (test code = 12 U/L 5-50 1742-6) AST(SGOT) (test code = 29 U/L 13-40 2455572845) eGFR (test code = mL/min/1.73m2 3914453089) RAEGAN (test code = RAEGAN) Association of Glomerular Filtration Rate (GFR) and Staging of Kidney Disease* + --+ --+ ------+| GFR (mL/min/1.73 m2) ?| With Kidney Damage ?| ?Without Kidney Damage+ --------+ --------+ +| ?>90 ?| ?Stage one ?| ? Normal ?+ ---+ ---+ -------+| ?60-89 ?| ?Stage two ?| ? Decreased GFR ? + --+ --+ ------+| ?30-59 ?| ?Stage three ?| ? Stage three ? + --+ --+ ------+| ?15-29 ?| ?Stage four ? | ? Stage four ?+ ---+ ---+ -------+| ?<15 (or dialysis) ? ?| ?Stage five ? | ? Stage five ?+ ---+ ---+ -------+ *Each stage assumes the associated GFR level has been in effect for at least three months. ?Stages 1 to 5, with or without kidney disease, indicate chronic kidney disease. Notes: Determination of stages one and two (with eGFR >59mL/min/1.73 m2) requires estimation of kidney damage for at least three months as defined by structural or functional abnormalities of the kidney, manifested by either:Pathological abnormalities or Markers of kidney damage (including abnormalities in the composition of the blood or urine or abnormalities in imaging tests). Lab Interpretation Abnormal (test code = 87892-7) [facility]valeURIC [id number] 14:46:50 Test Item Value Reference Range Interpretation Comments URIC ACID (test code = 3284560461) 11.5 mg/dL 3.6-8.0 H Lab Interpretation (test code = Abnormal 16412-4) [facility]
[2022-11-30] MEDS ORDERED: ASPIRIN 81 MG CHEWABLE TABLET ONE (09:57)
[2022-11-30 10:34] LABS: Absolute Lymphocytes (CBC) 3.3 K/uL (0.7-4.9); Hematocrit 34.1 % (39.6-49.0); Lymphocytes % 25.8 % (15.3-44.8); MCV 89.2 fL (80-100); MPV 9.8 fL (7.6-11.3); RBC Red Blood Cell Count 3.83 M/uL (4.33-5.43)
[2022-11-30 10:53] LABS: Troponin High Sensitivity 18.3 pg/mL (<58.9)
[2022-11-30 10:55] LABS: Potassium 4.8 mmol/L (3.5-5.1)
--- NOTE | 2022-11-30 12:11 | RAD REPORT ---
[facility] CLINICAL HISTORY: CHEST PAIN COMPARISON: Chest Single View dated 04/24/2020; Chest Single View dated 04/23/2020; Abdomen 1 View ([facility]) dated 04/14/2020; Chest Single View dated 04/10/2020 TECHNIQUE: Portable AP view of the chest. FINDINGS: Marked improvement of bilateral mid to lower lung opacities. Underlying mild interstitial prominence. Minimal opacities remain at the left base. Stable cardiomegaly. No pneumothorax or effusi on. The mediastinal contours are unremarkable. IMPRESSION: Significant interval radiographic improvement as above.
--- NOTE | 2022-11-30 12:34 | EDPHYS ---
Physician Documentation [facility] Name: José Miguel Peraza Jr Age: 72 yrs Sex: Male : 1950 Arrival Date: 11/30/2022 Time: 09:21 Bed 23 Private MD: Marina Brooks H ED Physician Stephen Shrestha HPI: 11/30 09:51 This 72 yrs old Black Male presents to ER via Ambulatory with complaints of Chest Pain. ms3 09:51 72-year-old male with past medical history of diabetes, gout, hypertension, myocardial ms3 infarction 5 years ago, chronic kidney disease presents for left-sided chest pain that began on . Patient describes the pain as being tight. Patient states the discomfort is a 2/10. Patient endorses tenderness to palpation of the left chest. Patient denies alleviating or inciting factors.. Historical: - Allergies: 09:40 No Known Allergies; ap3 - PMHx: 09:40 Diabetes - NIDDM; Gout; Hypertension; Myocardial infarction; kidney failure; ap3 - Social history:: Smoking status: Patient denies any tobacco usage or history of. ROS: 09:51 Constitutional: Negative for fever, and chills. ms3 09:51 Neck: Negative for injury, pain, and swelling, Respiratory: Negative for shortness of breath, cough, wheezing, and pleuritic chest pain, Abdomen/GI: Negative for abdominal pain, nausea, vomiting, diarrhea, and constipation, Skin: Negative for injury, rash, and discoloration. 09:51 Cardiovascular: Positive for chest pain. 09:51 All other systems are negative. Exam: 09:51 Constitutional: This is a well developed, well nourished patient who is awake, alert, ms3 and in no acute distress. Head/Face: Normocephalic, atraumatic. Neck: Trachea midline, no cervical lymphadenopathy. Supple, full range of motion without nuchal rigidity, or vertebral point tenderness. No Meningismus. Chest/axilla: Normal chest wall appearance and motion. Nontender with no deformity. Cardiovascular: Regular rate and rhythm with a normal S1 and S2. No gallops, murmurs, or rubs. Normal PMI, no JVD. No pulse deficits. Respiratory: Lungs have equal breath sounds bilaterally, clear to auscultation and percussion. No rales, rhonchi or wheezes noted. No increased work of breathing, no retractions or nasal flaring. Abdomen/GI: Soft, non-tender, with normal bowel sounds. No distension or tympany. No guarding or rebound. No evidence of tenderness throughout. Skin: Warm, dry with normal turgor. Normal color with no rashes, no lesions, and no evidence of cellulitis. MS/ Extremity: Pulses equal, no cyanosis. Neurovascular intact. Full, normal range of motion. 10:48 ECG was reviewed by the Attending Physician. ms3 Vital Signs: 09:42 BP 148 / 76; Pulse 66; Resp 19; Temp 98.9; Pulse Ox 100% ; ap3 09:42 Weight 83.91 kg; ap3 11:15 BP 112 / 66; Pulse 49; Resp 18; Pulse Ox 100% on R/A; kr3 12:19 BP 123 / 78; Pulse 52; Resp 18; Pulse Ox 100% on R/A; kr3 MDM: 09:42 Patient medically screened. ms3 09:51 Differential diagnosis: abnormal EKG, acute myocardial infarction, chest wall pain. ms3 13:42 HEART Score: History: Slightly Suspicious (0), ECG: Normal (0), Age: > or = 65 years ms3 (2), Risk Factors: 1 or 2 risk factors (1), [Hypertension] [DM] Troponin: < or = 1 x Normal Limit (0), Total Score = 3. The patient was given aspirin in the Emergency Department. Data reviewed: vital signs, nurses notes, lab test result(s), EKG, radiologic studies, and as a result, I will discharge patient. Consideration of Admission/Observation Escalation of care including admission/observation considered. Troponin negative. I considered the following discharge prescriptions or medication management in the emergency department Medications were administered in the Emergency Department. See MAR. Independent interpretation of the following test(s) in the Emergency Department EKG: See my EKG interpretation above alarm security or surveillance monitor: rate is 54 beats/min, Rhythm is sinus bradycardia, with no ectopy, Interpretation: bradycardia. Counseling: I had a detailed discussion with the patient and/or guardian regarding: the historical points, exam findings, and any diagnostic results supporting the discharge/admit diagnosis, lab results, radiology results, the need for outpatient follow up, to return to the emergency department if symptoms worsen or persist or if there are any questions or concerns that arise at home. ED course: Discussed labs, imaging, EKG with patient and son. They understand and agree with plan. Patient to follow-up with Dr. Ndiaye in 1 to 2 days. Patient understands and agrees with plan. All questions were answered. Return precautions discussed include shortness of breath, increased chest pain, worsening symptoms, or any other concerns. On reevaluation patient is alert and oriented x4, no apparent distress, nontoxic, ambulatory Emergency Department, speaking full sentences. 11/30 09:44 Order name: Basic Metabolic Panel; Complete Time: 10:57 ms3 11/30 09:44 Order name: CBC with Diff; Complete Time: 10:47 ms3 11/30 09:44 Order name: NT PRO-BNP; Complete Time: 10:57 ms3 11/30 09:44 Order name: Troponin HS; Complete Time: 10:57 ms3 11/30 09:44 Order name: XRAY Chest (1 view); Complete Time: 12:14 ms3 11/30 09:44 Order name: EKG; Complete Time: 09:53 ms3 11/30 09:44 Order name: Cardiac monitoring; Complete Time: 09:53 ms3 11/30 09:44 Order name: EKG - Nurse/Tech; Complete Time: 10:47 ms3 11/30 09:44 Order name: Labs collected and sent; Complete Time: 10:47 ms3 11/30 09:44 Order name: O2 Per Protocol; Complete Time: 09:53 ms3 11/30 09:44 Order name: O2 Sat Monitoring; Complete Time: 09:53 ms3 EC:48 Rate is 61 beats/min. Rhythm is regular. QRS Barnhart is Normal. FL interval is normal. QRS ms3 interval is normal. Clinical impression: NSR w/ Non-specific ST/T Changes. Interpreted by me. Reviewed by me. Administered Medications: 09:56 Drug: Aspirin Chewable Tablet 324 mg Route: PO; kr3 12:49 Follow up: Response: No adverse reaction kr3 Disposition Summary: 11/30/22 12:33 Discharge Ordered Location: Home ms3 Condition: Stable ms3 Diagnosis - Chest pain, unspecified ms3 - Chronic kidney disease, unspecified ms3 - Anemia, unspecified ms3 Followup: ms3 - With: Brooks, Jennifer-Mau, DO - When: 2 - 3 days - Reason: Recheck today's complaints Followup: ms3 - With: Louis Ndiaye MD - When: 1 - 2 days - Reason: Recheck today's complaints Discharge Instructions: - Discharge Summary Sheet ms3 - Anemia ms3 - Nonspecific Chest Pain, Adult ms3 - End-Stage Kidney Disease ms3 Forms: - Medication Reconciliation Form ms3 - Thank You Letter ms3 - Antibiotic Education ms3 - Prescription Opioid Use ms3 Signatures: Dispatcher [employer] Coretta Delgado, RN RN ap3 Stephen Shrestha, DO DO ms3 Jazzy Caraballo RN RN kr3
--- NOTE | 2022-11-30 12:34 | ER ---
Nurse's Notes [facility] Name: José Miguel Peraza Jr Age: 72 yrs Sex: Male : 1950 Arrival Date: 11/30/2022 Time: 09:21 Bed 23 Private MD: Marina Brooks H Diagnosis: Chest pain, unspecified;Chronic kidney disease, unspecified;Anemia, unspecified Presentation: 11/30 09:39 Chief complaint: Patient states: he has chest pain that started on 11/25/2022. ap3 Patient reports the pain 2/10 on the pain scale. 09:39 Method Of Arrival: Ambulatory ap3 09:42 Coronavirus screen: At this time, the client does not indicate any symptoms associated ap3 with coronavirus-19. Ebola Screen: No symptoms or risks identified at this time. Initial Sepsis Screen: Does the patient meet any 2 criteria? No. Patient's initial sepsis screen is negative. Does the patient have a suspected source of infection? No. Patient's initial sepsis screen is negative. Risk Assessment: Do you want to hurt yourself or someone else? Patient reports no desire to harm self or others. Onset of symptoms was November 25, 2022. 09:42 Acuity: BRAD 3 ap3 Triage Assessment: 09:41 General: Appears in no apparent distress. Behavior is calm, cooperative. Pain: ap3 Complains of pain in anterior aspect of left upper chest and left breast Pain currently is 2 out of 10 on a pain scale. Neuro: Level of Consciousness is awake, alert, obeys commands, Oriented to person, place, time. Cardiovascular: Reports chest pain, Patient's skin is warm and dry. Respiratory: Airway is patent Respiratory effort is even, unlabored, Respiratory pattern is regular, symmetrical, Onset: The symptoms/episode began/occurred 11/25/22. Historical: - Allergies: 09:40 No Known Allergies; ap3 - PMHx: 09:40 Diabetes - NIDDM; Gout; Hypertension; Myocardial infarction; kidney failure; ap3 - Social history:: Smoking status: Patient denies any tobacco usage or history of. Screenin:42 [facility] ED Fall Risk Assessment (Adult) History of falling in the last 3 months, ap3 including since admission No falls in past 3 months (0 pts). Abuse screen: Denies threats or abuse. Nutritional screening: No deficits noted. Tuberculosis screening: No symptoms or risk factors identified. Assessment: 09:43 Pain: Pain does not radiate. ap3 10:30 Reassessment: patient stuck x2 by 2 separate nurses without success. Blood was obtained kr3 and sent at 10:28. 11:15 Reassessment: Patient and/or family updated on plan of care and expected duration. Pain kr3 level reassessed. Patient is alert, oriented x 3, equal unlabored respirations, skin warm/dry/pink. 12:19 Reassessment: No changes from previously documented assessment. Patient and/or family kr3 updated on plan of care and expected duration. Pain level reassessed. Patient is alert, oriented x 3, equal unlabored respirations, skin warm/dry/pink. Vital Signs: 09:42 BP 148 / 76; Pulse 66; Resp 19; Temp 98.9; Pulse Ox 100% ; ap3 09:42 Weight 83.91 kg; ap3 11:15 BP 112 / 66; Pulse 49; Resp 18; Pulse Ox 100% on R/A; kr3 12:19 BP 123 / 78; Pulse 52; Resp 18; Pulse Ox 100% on R/A; kr3 ED Course: 09:21 Patient arrived in ED. mr 09:21 Marina Brooks DO is Private Physician. mr 09:36 Stephen Shrestha DO is Attending Physician. ms3 09:42 Triage completed. ap3 09:43 Arm band placed on right wrist. ap3 09:43 Patient has correct armband on for positive identification. Adult w/ patient. ap3 09:43 Patient maintains SpO2 saturation greater than 95% on room air. ap3 09:51 Jazzy Caraballo, BEENA is Primary Nurse. kr3 10:05 Client placed on continuous cardiac and pulse oximetry monitoring. NIBP monitoring kr3 applied. 10:59 XRAY Chest (1 view) In Process Unspecified. EDMS 12:32 Marina Brooks DO is Referral Physician. ms3 12:32 Louis Ndiaye MD is Referral Physician. ms3 12:48 No provider procedures requiring assistance completed. Patient did not have IV access kr3 during this emergency room visit. Administered Medications: 09:56 Drug: Aspirin Chewable Tablet 324 mg Route: PO; kr3 12:49 Follow up: Response: No adverse reaction kr3 Medication: 12:48 VIS not applicable for this client. kr3 Outcome: 12:33 Discharge ordered by . ms3 12:48 Patient left the ED. kr3 12:48 Discharged to home ambulatory. kr3 12:48 Condition: stable 12:48 Discharge instructions given to patient, Instructed on discharge instructions, follow up and referral plans. Demonstrated understanding of instructions, follow-up care. Signatures: Dispatcher [employer] Awa Gipson mr Coretta Thomas, RN RN ap3 Stephen Shrestha DO DO ms3 Jazzy Caraballo, RN RN kr3
[2022-11-30 12:55] VITALS: TEMP 98.9; O2SAT 100
[2022-11-30 12:58] VITALS: BP 123/78
--- NOTE | 2022-12-01 11:18 | EKG ---
Test Date: 2022-11-30 Test Time: 10:12:13 Legal Intern: JANIS MEASUREMENT RESULTS: Intervals: Rate: 61 RI: 158 QRSD: 146 QT: 480 QTc: 483 [place]: P: 44 RI: 158 QRS: -16 T: 8 INTERPRETIVE STATEMENTS: Normal sinus rhythm Right bundle branch block Abnormal ECG Compared to ECG 04/24/2020 11:19:02 Right bundle-branch block now present Supraventricular tachycardia no longer present ST (T wave) deviation no longer present Electronically Signed On 12-01-22 11:15:39 UAT TESTER by Louis Ndiaye
== END 2022-11-30 12:48 | disposition home or self-care (01) ==
LOC: ER 09:20
DX: R07.89 Other chest pain (principal); E11.22 Type 2 diabetes mellitus with diabetic chronic kidney disease; I12.9 Hypertensive chronic kidney disease with stage 1 through stage 4 chronic kidney disease, or unspecified chronic kidney disease; N18.9 Chronic kidney disease, unspecified; D64.9 Anemia, unspecified
CPT/HCPCS: 36415; 71045; 80048; 83880; 84484; 85025; 93005

== ENCOUNTER 2023-05-23 08:34 | Day surgery (SDC) | payer OTHER ==
[2023-05-23 09:43] VITALS: BP 147/61; TEMP 97.9; O2SAT 100; BMI 34.0
[2023-05-23] MEDS ORDERED: EPOETIN ALFA-EPBX 10,000 UNIT/ML VIAL ONE (09:44)
[2023-05-23 10:03] LABS: Ferritin 736.3 ng/mL (26-388); Folic Acid, (Folate) > 20.0 ng/mL (3.1-17.5); Transferrin 137 mg/dL (200-360)
== END 2023-05-23 09:53 | disposition home or self-care (01) ==
LOC: DS 08:34
PROVIDERS: ATTEND Internal Medicine Nephrology
DX: N18.5 Chronic kidney disease, stage 5 (principal); D63.1 Anemia in chronic kidney disease; D63.0 Anemia in neoplastic disease
CPT/HCPCS: 36415; 85018; 85014; 82728; 82746; 82607; 83540; 84466; 96372; Q5106